=== PATIENT | female | born 1995 | race Caucasian/White ===

== ENCOUNTER 2023-10-29 09:43 | Emergency (ER) | payer OTHER, SELFPAY ==
[2023-10-29 09:47] VITALS: BP 103/65; PULSE 88; RESP 20; TEMP 36.8; O2SAT 96
--- NOTE | 2023-10-29 09:50 | ECG_ITS ---
Test Date: 2023-10-29 09:52:20 Measurements Intervals [place] Rate: 94 P: 56 FL: 137 QRS: 50 QRSD: 88 T: 10 QT: 362 QTc: 453 Interpretive Statements SINUS RHYTHM NORMAL ECG No previous ECG available for comparison Electronically Signed On 10-29-2023 15:51:26 CDT by Blaze Nicolas M.D.
[2023-10-29 10:00] VITALS: BP 103/65; BP 104/71; BP 106/71; PULSE 89; PULSE 94; PULSE 97
[2023-10-29] MEDS: SODIUM CHLORIDE 0.9% IV 1,000 ML 999 ML IV CONT (10:25)
[2023-10-29] MEDS: ONDANSETRON INJ 4 MG/2 ML VIAL IV PUSH (10:25)
--- NOTE | 2023-10-29 10:35 | ED.SYNCOPE ---
HPI - Syncope General Chief Complaint: Weakness Stated Complaint: near syncope Time Seen by Provider: 10/29/23 10:00 Source: patient Mode of arrival: EMS Limitations: no limitations History of Present Illness HPI narrative: This is a 28 year old female that presents to the ER for a near syncopal episode while at work. Reports she started to feel very lightheaded and hot, her co-workers were able to get her seated before passing out. Reports she is 20 weeks . Reports she has struggled with lightheadedness her entire life. It worsens when she is . Her OB is Dr. Summers. She has not eaten yet today. She has had regular pre-andie care and is scheduled for her 20 and appointment today. Denies chest pain, shortness of breath or palpitations. Related Data Allergies Allergy/AdvReac Type Severity Reaction Status Date / Time No Known Allergies Allergy Verified 10/29/23 09:54 Review of Systems Review of Systems: CONSTITUTIONAL: Denies fever CARDIOVASCULAR: Denies chest pain RESPIRATORY: Denies dyspnea. GASTROINTESTINAL: Reports nausea. Denies vomiting All systems reviewed & are unremarkable except as noted in HPI and below PMFSH Past Medical History Medical History (Updated 10/29/23 @ 11:21 by Shena Chan PA-C) Anxiety Social History Social History (Updated 10/29/23 @ 10:41 by Shena Chan PA-C) Substance use: never Exam Narrative: GENERAL: Well-appearing, well-nourished, and in no acute distress. HEAD: Normocephalic, atraumatic. EYES: EOMI. ENT: Nares clear, no rhinorrhea or epistaxis. Mucous membranes moist. Oropharynx without tonsillar hypertrophy exudate or other lesions. NECK: Supple. No adenopathy or masses. CHEST: Clear to auscultation. No respiratory distress. No wheezes rales or rhonchi HEART: Regular rate and rhythm. No murmur heard. Normal peripheral pulses. EXTREMITIES: Normal range of motion. No edema. SKIN: Warm, dry, no rash. NEURO: No focal deficits. Alert and oriented x3. PSYCH: Normal mood and affect Course Course Emergency Course: patient updated on workup and agrees with plan of care Consultations Consultation #1: Spoke with Dr. Summers about patient and workup who agrees with plan of care Date: 10/29/23 Vital Signs Vital signs: Vital Signs Temperature 98.3 F 10/29/23 09:47 Pulse Rate 88 10/29/23 09:47 Respiratory Rate 20 10/29/23 09:47 Blood Pressure 103/65 10/29/23 09:47 Pulse Oximetry 96 10/29/23 09:47 Oxygen Delivery Room Air 10/29/23 09:47 Temperature 98.3 F 10/29/23 09:47 Pulse Rate 95 10/29/23 11:30 Respiratory Rate 19 10/29/23 11:30 Blood Pressure 106/55 L 10/29/23 11:30 Pulse Oximetry 100 10/29/23 11:30 Oxygen Delivery Room Air 10/29/23 09:47 MDM - Syncope MDM Narrative Medical decision making narrative: Patient presents to the emergency department for near syncopal episode today, 20 weeks . She did not pass out or hit her head. She has no chest pain or shortness of breath. Her coworkers were able to get her to a seated position. Reports she has struggled with this for quite some time. She has worsening of her symptoms during . She is afebrile and nontoxic appearing. Her vitals are stable. CBC without leukocytosis. Does show a normocytic anemia with hemoglobin of 9.1. Patient does report known history of anemia and that she is not currently taking her iron supplementation. Metabolic panel without concerning findings. Urine without evidence of infection. Patient denies any bleeding or cramping. heart tones noted to be normal. She is scheduled for her anatomy scan today and follow-up with Dr. Summers. reports feeling better after eating and having a L fluids. She is to follow up with her OB for further care. She was given warnings to return to the ER Differential Diagnosis Differential diagnosis: Likely dehydration and other (anemia, electrolyte derangement, orthostat
[2023-10-29 10:45] VITALS: BP 100/63; PULSE 88; RESP 14; O2SAT 100
[2023-10-29 10:55] LABS: Basophils Absolute Auto 0.1 K/mm3 (0.0-0.1); Basophils Percent Auto 0.8 % (0.2-1.2); Eosinophils Absolute Auto 0.1 K/mm3 (0-0.3); Eosinophils Percent Auto 1.2 % (0-4.4); Hematocrit 28.3 % (37.0-47.0); Hemoglobin 9.1 g/dL (12.0-15.0); Immature Granulocyte Absolute 0.07 K/mm3 (0.00-0.031); Immature Granulocyte Percent A 0.9 % (0-0.5); Lymphocytes Absolute Auto 1.58 K/mm3 (0.9-3.2); Lymphocytes Percent Auto 20.7 % (18.3-44.2); Mean Corpuscular HGB Conc 32.2 g/dl (32-36); Mean Corpuscular Hemoglobin 27.5 pg (26-34); Mean Corpuscular Volume 85.5 fl (80-100); Mean Platelet Volume 9.1 fl (7.4-10.4); Monocytes Absolute Auto 0.6 K/mm3 (0.1-0.6); Monocytes Percent Auto 7.8 % (2.6-8.5); Neutrophils Absolute Auto 5.3 K/mm3 (1.3-6.7); Neutrophils Percent Auto 68.6 % (45.5-73.1); Platelet Count Result 367 k/mm3 (150-375); Red Blood Count 3.31 M/mm3 (4.2-5.4); Red Cell Distribution Width 15.2 % (11.5-14.5); White Blood Count 7.7 K/mm3 (4.5-10.0)
[2023-10-29 11:12] LABS: Alanine Aminotransferase 6 U/L (6-35); Albumin Level 3.3 g/dL (3.5-5.1); Alkaline Phosphatase 68 U/L (38-126); Anion Gap 6 mmol/L (4-12); Aspartate Amino Transferase 16 U/L (14-36); Bilirubin,Total 0.4 mg/dL (0.2-1.3); Blood Urea Nitrogen 8 mg/dL (7-17); Calcium 8.2 mg/dL (8.4-10.2); Carbon Dioxide 23 mmol/L (22-30); Chloride 107 mmol/L (98-107); Estimated CRCL calculation 132 ml/min; Estimated Glomerular Filt Rate > 60; Glucose 82 mg/dL (65-110); Potassium 3.4 mmol/L (3.4-5.0); Sodium 136 mmol/L (137-145)
[2023-10-29 11:19] LABS: Appearance Urine Cloudy (Clear); Bacteria Urine None Seen /hpf; Bilirubin Urine Negative (Negative); Blood Urine Negative (Negative); Color Urine Yellow (Yellow); Glucose Urine UA Negative (Negative); Ketones Urine Negative (Negative); Leukocyte Esterase Ur Negative LEU/UL (Negative); Nitrate Urine Negative (Negative); Non Pathogenic Casts 0-2; Protein Urine Negative (Negative); RBC Urine 0-2 /hpf (0-2); Specific Grav Ur 1.016 (1.001-1.035); Squamous Epithelial Cell Urine None Seen /hpf (Few); WBC Urine 0-5 /hpf (0-3)
[2023-10-29 11:20] LABS: Troponin I < 0.012 ng/mL (0.000-0.034)
[2023-10-29 11:26] LABS: Add Urine Microscopic? YES
[2023-10-29 11:30] VITALS: BP 106/55; PULSE 95; RESP 19; O2SAT 100
[2023-10-29 12:57] VITALS: BP 101/68; PULSE 94; RESP 18; O2SAT 99
== END 2023-10-29 12:59 | disposition home or self-care (01) ==
PROVIDERS: Student in an Organized Health Care Education/Training Program; Emergency Provider Physician Assistant
DX: R55 Syncope and collapse (principal); D64.9 Anemia, unspecified
CPT/HCPCS: 36415; 80053; 81001; 84484; 85025; 93005; 96361; 96374; 99284; J2405; J7030

== ENCOUNTER 2024-01-10 21:39 | Observation (INO) | payer OTHER, SELFPAY ==
[2024-01-10] VITALS (11 sets, daily range): BP systolic 108–113; BP diastolic 65–68; PULSE 104–116; O2SAT 95–98; BMI 22.8
--- NOTE | 2024-01-10 22:15 | PC.NURSE ---
2138- pt presents to L&D unit with c/o leaking fluid and general pain in the vaginal area. Pt states she feels adequate movement and denies vaginal bleeding. Abdomen palpates soft.
[2024-01-10 22:24] LABS: Bacteria Urine 4+ /hpf; Calcium Oxalate Crystals Urine Present /hpf; Mucus Urine Present /lpf; Need Manual Microscopic Reviewed; Non Pathogenic Casts 0-2; Squamous Epithelial Cell Urine Moderate /hpf (Few); WBC Urine 51-100 /hpf (0-3)
[2024-01-10 22:29] LABS: Color Urine Yellow (Yellow)
[2024-01-10 22:30] LABS: Appearance Urine Sl Cloudy (Clear); Bilirubin Urine 1+ (Negative); Blood Urine Negative (Negative); Glucose Urine UA Negative (Negative); Ketones Urine 1+ mg/dL (Negative); Nitrate Urine Negative (Negative); Protein Urine 1+ mg/dL (Negative); Specific Grav Ur >= 1.030 (1.001-1.035)
[2024-01-10 22:31] LABS: Add Urine Microscopic? YES; Leukocyte Esterase Ur 1+ LEU/UL (Negative)
--- NOTE | 2024-01-10 22:31 | OBADM ---
This patient, Radha Mckeon, admitted to the OB room OB Post 116 for observation. Patient/family oriented to hospital policies and general routines including ID bracelet, bed and alarms, visiting hours, pain management, procedures, bathroom and other care routines, personal items, smoking policy, room service/diet, and visiting hours. Patient/Family are encouraged to report perceived risks to care and to ask questions if they do not understand what they are told or what they should do.
--- NOTE | 2024-01-10 22:52 | PC.NURSE ---
2239- RN called MD and reports pts arrival to unit with complaints of LOF as vaginal pain. RN reported FHT and rare contractions as well as findings of UA and speculum exam. Orders received.
[2024-01-11 00:28] LABS: Chlamydia trachomatis NOT DETECTED (NOT DETECTE); Neisseria gonorrhoeae PCR NOT DETECTED (NOT DETECTE)
--- NOTE | 2024-02-08 10:12 | PM.OBTRLD ---
OB - Triage/Final Diagnosis Visit Information Comments/Additional reasons for admission: I have assessed the risk for this patient, Radha Mckeon, and determined that she would benefit from observation care. Evaluation Laboratory results: Laboratory Tests 01/10/24 22:05 Urine Color Yellow Urine Appearance Sl cloudy Urine pH 6.0 Ur Specific [place] >= 1.030 Urine Protein 1+ H Urine Glucose (UA) Negative Urine Ketones 1+ H Ur Blood (Man) Negative Urine Nitrate Negative Urine Bilirubin 1+ H Urine Urobilinogen 2.0 H Add Ur Microanalysis Reviewed Leukocyte Esterase Rfl 1+ H Urine RBC 3-5 H Urine WBC 51-100 H Ur Squamous Epith Cells Moderate Calcium Oxalate Crystal Present Urine Bacteria 4+ H Urine Casts 0-2 Urine Mucus Present C. trachomatis (PCR) Not detected N. gonorrhoeae (PCR) Not detected Final Diagnosis (1) Vaginal discharge during in third trimester: Code(s): O26.893 - Other specified related conditions, third trimester; N89.8 - Other specified noninflammatory disorders of vagina Status: Acute
== END 2024-01-10 22:51 | disposition home or self-care (01) ==
PROVIDERS: Admitting Provider Obstetrics & Gynecology; PCP Obstetrics & Gynecology; Visit Provider Obstetrics & Gynecology
DX: O26.893 Other specified pregnancy related conditions, third trimester (principal); N89.8 Other specified noninflammatory disorders of vagina; Z3A.31 31 weeks gestation of pregnancy
CPT/HCPCS: 81001; 87086; 87491; 87591; G0378; G0379

== ENCOUNTER 2024-02-11 23:16 | Observation (INO) | payer OTHER, SELFPAY ==
[2024-02-11 23:27] VITALS: TEMP 37.2
[2024-02-12 01:19] VITALS: PULSE 99; O2SAT 97
[2024-02-12 01:22] VITALS: BMI 23.7
--- NOTE | 2024-02-12 01:22 | OBADM ---
This patient, Radha Mckeon, admitted to the OB room Labor/Delivery/Recovery 105 for observation. Patient/family oriented to hospital policies and general routines including ID bracelet, bed and alarms, visiting hours, pain management, procedures, bathroom and other care routines, personal items, smoking policy, room service/diet, and visiting hours. Patient/Family are encouraged to report perceived risks to care and to ask questions if they do not understand what they are told or what they should do.
--- NOTE | 2024-02-24 17:04 | PM.OBTRLD ---
OB - Triage/Final Diagnosis Visit Information Comments/Additional reasons for admission: I have assessed the risk for this patient, Radha Mckeon, and determined that she would benefit from observation care. Final Diagnosis (1) Vaginal discharge during in third trimester: Code(s): O26.893 - Other specified related conditions, third trimester; N89.8 - Other specified noninflammatory disorders of vagina Status: Acute
== END 2024-02-12 01:36 | disposition home or self-care (01) ==
PROVIDERS: Admitting Provider Obstetrics & Gynecology; Visit Provider Obstetrics & Gynecology
DX: O26.893 Other specified pregnancy related conditions, third trimester (principal); N89.8 Other specified noninflammatory disorders of vagina; Z3A.35 35 weeks gestation of pregnancy
CPT/HCPCS: G0378; G0379

== ENCOUNTER 2024-02-25 18:59 | Inpatient (IN) | payer OTHER, SELFPAY ==
[2024-02-25] VITALS (18 sets, daily range): BP systolic 105–120; BP diastolic 62–81; PULSE 97–120; TEMP 36.4; BMI 24.2
--- NOTE | ~2024-02-25 | XR_ITS ---
Supine portable view of the abdomen Clinical history: No surgical count done, emergency section Findings: Bowel gas pattern is nonspecific. Moderate to large amount of stool present. No evidence fo r obstruction or free air. No abnormal mass lesion or calcification is seen. Osseous structures are i ntact. Impression: No abnormal radiopaque foreign body. Constipation. Reviewed, dictated and finalized at location . Impression: No abnormal radiopaque foreign body. Constipation.
[2024-02-25 20:09] LABS: Basophils Absolute Auto 0.1 K/mm3 (0.0-0.1); Basophils Percent Auto 0.5 % (0.2-1.2); Eosinophils Absolute Auto 0.1 K/mm3 (0-0.3); Hematocrit 35.1 % (37.0-47.0); Hemoglobin 11.5 g/dL (12.0-15.0); Immature Granulocyte Absolute 0.12 K/mm3 (0.00-0.031); Immature Granulocyte Percent A 1.1 % (0-0.5); Lymphocytes Absolute Auto 1.54 K/mm3 (0.9-3.2); Lymphocytes Percent Auto 14.4 % (18.3-44.2); Mean Corpuscular HGB Conc 32.8 g/dl (32-36); Mean Corpuscular Hemoglobin 27.1 pg (26-34); Mean Corpuscular Volume 82.6 fl (80-100); Mean Platelet Volume 9.4 fl (7.4-10.4); Monocytes Absolute Auto 1.1 K/mm3 (0.1-0.6); Neutrophils Absolute Auto 7.8 K/mm3 (1.3-6.7); Platelet Count Result 366 k/mm3 (150-375); Red Blood Count 4.25 M/mm3 (4.2-5.4); Red Cell Distribution Width 22.1 % (11.5-14.5); White Blood Count 10.7 K/mm3 (4.5-10.0)
--- NOTE | 2024-02-25 20:11 | LDADM ---
This patient, Radha Mckeon, was admitted to Labor/Delivery/Recovery 107 on 02/25/24 at 19:50. Plans for labor, pain management and were discussed with patient. Patient/family oriented to hospital policies and general routines including ID bracelet, bed and alarms, visiting hours, pain management, procedures, bathroom and other care routines, personal items, smoking policy, room service/diet and guest tray routines, infant security routines, and visiting hours. Patient/Family are encouraged to report perceived risks to care and to ask questions if they do not understand what they are told or what they should do. See OBIX for further documentation.
[2024-02-25 20:30] LABS: Platelet Estimate Adequate (Adequate)
[2024-02-25 20:31] LABS: Acanthocytes 1+; Burr Cells 1+; Ovalocytes 1+; Schistocytes None Seen
[2024-02-25] MEDS: LACTATED RINGERS 1,000 ML 125 ML IV CONT (20:42)
[2024-02-25] MEDS: AMPICILLIN 2 GM/NS 100 ML 2 GM/100 ML BAG IVPB (20:43)
[2024-02-25 20:48] LABS: Glucose Point of Care 86 mg/dl (65-105)
[2024-02-25 20:59] LABS: HIV 1/2 Ab P24 Ag Result Negative (Negative)
[2024-02-25 22:02] LABS: Rapid Plasma Reagin Non-Reactive (NonReactive)
[2024-02-26] VITALS (86 sets, daily range): BP systolic 86–124; BP diastolic 48–76; PULSE 72–102; RESP 12–19; TEMP 36.4–37.2; O2SAT 94–100
[2024-02-26] MEDS: AMPICILLIN 1 GM/NS 50 ML 1 GM/50 ML BAG IVPB ×2 (00:30→04:00)
[2024-02-26 00:36] LABS: Glucose Point of Care 94 mg/dl (65-105)
--- NOTE | 2024-02-26 00:44 | WPDANESEPP ---
Anes - Eval Pre Procedure Procedure: Labor epidural Date/Time: 02/26/24 00:44 Surgeon: Melina Preop Diagnosis: Abdominal pain with contractions Pre Op Diagnosis: Bleeding Patient Data Age: 28 Gender: F Height: 1.55 m Weight: 58.18 kg Last Vital Signs Temp 97.5 F L 02/25/24 21:50 Pulse 95 02/26/24 00:16 BP 105/68 02/26/24 00:16 O2 Del Method Room Air 02/25/24 20:07 Allergies Allergy/AdvReac Type Severity Reaction Status Date / Time No Known Allergies Allergy Verified 01/12/24 12:25 Home Medications Medication Instructions Recorded Confirmed Type ferrous sulfate 325 mg (65 mg 325 mg PO DAILY 30 days #30 tabs 10/29/23 02/25/24 Rx iron) tablet (FeroSul) Laboratory Tests 02/25/24 02/25/24 02/26/24 20:02 20:39 00:26 WBC 10.7 H K/mm3 (4.5-10.0) RBC 4.25 M/mm3 (4.2-5.4) Hgb 11.5 L g/dL (12.0-15.0) Hct 35.1 L % (37.0-47.0) MCV 82.6 fl (80-100) MCH 27.1 pg (26-34) MCHC 32.8 g/dl (32-36) RDW 22.1 H % (11.5-14.5) Plt Count 366 k/mm3 (150-375) MPV 9.4 fl (7.4-10.4) Immature Gran % (Auto) 1.1 H % (0-0.5) Neut % (Auto) 73.0 % (45.5-73.1) Lymph % (Auto) 14.4 L % (18.3-44.2) [place] % (Auto) 10.0 H % (2.6-8.5) Eos % (Auto) 1.0 % (0-4.4) Baso % (Auto) 0.5 % (0.2-1.2) Lymph # (Auto) 1.54 K/mm3 (0.9-3.2) [place] # (Auto) 1.1 H K/mm3 (0.1-0.6) Eos # (Auto) 0.1 K/mm3 (0-0.3) Baso # (Auto) 0.1 K/mm3 (0.0-0.1) Abs Immat Gran (auto) 0.12 H K/mm3 (0.00-0.031) Absolute Neuts (auto) 7.8 H K/mm3 (1.3-6.7) Absolute Nucleated RBC 0.000 K/mm3 (0.0-0.012) Nucleated RBC % 0.0 % (0.0-0.2) Platelet Estimate Adequate (Adequate) Ovalocytes 1+ Georgie Cells 1+ Acanthocytes (Spur) 1+ Schistocytes None seen POC Capillary Glucose 86 mg/dl 94 mg/dl (65-105) (65-105) RPR Non-reactive (NonReactive) HIV 1&2 Ab/P24 Ag 4thGn Negative (Negative) Blood Type O Positive Antibody Screen Negative : gestational age HCG: positive Patient hx anesthesia problems: none Family hx anesthesia problems: none Results Review: All pre-operative results and documents have been reviewed as part of the pre-operative evaluation. [facility] Past Medical History Medical History Anemia affecting Anxiety Gestational diabetes and not yet delivered Social History Social History Smoking status: Never smoker Second hand tobacco smoke exposure: Yes Substance use: never Do You Feel Safe in your Home?: Yes Lack of Transportation: No Lack of Food: Never True Current Housing: I Have Housing Concerned About Future Housing: No Difficulty Paying Gas/Electric Bills: YES Difficulty Paying for Meds: No Currently Unemployed: No Education: High School Diploma/GED Difficulty w/ Childcare or Family Care: No Spiritual care concerns: No Exam Day of Procedure 02/26/24 00:44 Patient weight: normal Airway: Mallampati scale class II
[2024-02-26 04:05] LABS: Glucose Point of Care 88 mg/dl (65-105)
[2024-02-26] MEDS: LACTATED RINGERS 1,000 ML 125 ML IV CONT (05:18)
[2024-02-26] MEDS: AZITHROMYCIN 500 MG/NS 250 ML 500 MG/250 ML BAG 250 MG IVPB (05:57)
--- NOTE | 2024-02-26 06:05 | PC.NURSE ---
Report given to Stephanie Thomas RN.
[2024-02-26] MEDS: FAMOTIDINE 20 MG/2 ML VIAL IV PUSH (06:07)
[2024-02-26] MEDS: ONDANSETRON INJ 4 MG/2 ML VIAL IV PUSH (06:07)
--- NOTE | 2024-02-26 06:38 | PM.IMHP ---
H&P: HPI History of Present Illness Date/Time: 02/26/24 06:39 Chief Complaint: Cord prolapse Narrative: The PEG water was ruptured. The bag of water wasushing through the cervix. Artificial rupture membranes was performed. Cord prolapse occurred. She was taken immediately for delivery. The patient understands the details of the procedure. The procedure has been explained in detail. She understands the risks. She understands that injuries may occur that result in hospitalization, more surgery, and severe illness. She understands risk of hemorrhage and infection. She denies any chest pain or shortness of breath. She denies any nausea, vomiting, fever, chills. Review of Systems Review of Systems: All systems reviewed & are unremarkable except as noted in HPI and below Constitutional: Constitutional: Denies chills, Denies fatigue, Denies fever(s) and Denies weakness Eyes: Eyes: Denies blurry vision, Denies change in vision, Denies loss of peripheral vision, Denies loss of vision, Denies other visual disturbances and Denies eye pain ENT: Denies vertigo, Denies dizziness, Denies hearing loss, Denies mouth pain, Denies nasal obstruction, Denies neck mass and Denies neck pain Cardiovascular: Cardiovascular: Denies chest pain, Denies diaphoresis, Denies syncope, Denies leg edema and Denies dyspnea Respiratory: Respiratory: Denies chest congestion, Denies cough, Denies hemoptysis, Denies dyspnea and Denies wheezing Gastrointestinal: Gastrointestinal: Denies abdominal pain, Denies constipation, Denies diarrhea, Denies nausea and Denies vomiting Genitourinary: Genitourinary: Denies hematuria, Denies change in libido, Denies nocturia, Denies genital lesions, Denies flank pain and Denies urinary urgency Musculoskeletal: Musculoskeletal: Denies abnormal gait, Denies back pain, Denies myalgias, Denies arthralgias, Denies joint swelling, Denies muscle weakness and Denies neck pain Integumentary/Breasts: Skin/Breast: Denies swelling, Denies breast pain, Denies breast mass, Denies dry skin, Denies nipple discharge, Denies unusual bruising and Denies jaundice Neurologic: Denies Neuro-related abnormal movements, Denies Abnormal speech present, Denies abnormal gait, Denies behavioral changes, Denies confusion, Denies vertigo, Denies dizziness, Denies syncope, Denies loss of vision, Denies memory loss, Denies convulsions and Denies weakness Psychiatric: Psychiatric: Denies abnormal sleep pattern, Denies behavioral changes, Denies change in libido, Denies confusion, Denies depression, Denies anhedonia and Denies memory loss Endocrine: Endocrine: Reports no additional endocrine complaints, Denies change in libido and Denies fatigue Hematologic/Lymphatic: Hematologic/Lymphatic: Reports no additional hematologic/lymphatic complaints Allergic/Immunologic: Allergic/Immunologic: Reports no additional allergic/immunologic complaints and Denies wheezing PMFSH Past Medical History Medical History Anemia affecting Anxiety Gestational diabetes and not yet delivered Social History Social History Smoking status: Never smoker Second hand tobacco smoke exposure: Yes Substance use: never Do You Feel Safe in your Home?: Yes Lack of Transportation: No Lack of Food: Never True Current Housing: I Have Housing Concerned About Future Housing: No Difficulty Paying Gas/Electric Bills: YES Difficulty Paying for Meds: No Currently Unemployed: No Education: High School Diploma/GED Difficulty w/ Childcare or Family Care: No Spiritual care concerns: No Meds Home Medications and Allergies Home Medications Medication Instructions Recorded Confirmed Type ferrous sulfate 325 mg (65 mg 325 mg PO DAILY 30 days #30 tabs 10/29/23 02/25/24 Rx iron) tablet (FeroSul) Allergies Allergy/Ad
--- NOTE | 2024-02-26 06:45 | WPDHPUPDATE1 ---
History and Physical Update Update Date/Time: 02/26/24 06:45 History and Physical has been reviewed, including an updated exam of the patient. There are NO changes in the patient's condition. Risks, benefits, and alternatives have been discussed and questions answered. Patient agrees to proceed with procedure.
--- NOTE | 2024-02-26 06:47 | W.PM.OBCSD ---
OB - Delivery Note Procedure Delivery date: 02/26/24 Pre-op diagnosis: Umbilical Cord Prolapse Post-op Diagnosis: Same Procedure Performed: Primary Surgeon: Ernesto Summers MD Anesthesia type: General Description of Procedure/Findings: The patient was taken the operating room.? She was prepped and draped in dorsal supine position with a leftward tilt.? This was done after spinal anesthetic was applied.? A low-transverse skin incision was made and carried down till of the fascia with the knife.? The fascial incision was made with the knife.? The fascial incision was extended laterally with Huff scissors.? The fascia was tented upward superiorly and inferiorly the rectus muscles were dissected off bluntly.? The rectus muscles were the midline.? The preperitoneal fat and peritoneum were dissected open bluntly at the superior aspect of the rectus muscles.? The peritoneal incision was extended superior and inferior with good position of bladder.? The uterine incision was made with a scalpel down to the level of the amniotic cavity.? The amniotic cavity was entered bluntly.? The infant was delivered.? The cord was clamped and cut and the infant was handed off to waiting pediatric staff.? Cord bloods were obtained.? The placenta was removed manually.? The uterus was exteriorized.? The uterus was cleared of all clots, debris and membranes.? The uterus was closed in 0 Vicryl running lock fashion.? An imbricating over a was placed along the incision line as well.? The uterus was returned to the abdomen.? The gutters were cleared of all clots and debris.? The fascia was closed with 0 Vicryl running fashion.? The subcutaneous tissue was irrigated pinpoint bleeders were cauterized.? The skin was closed with subcuticular absorbable messi.? The skin incision line was covered with glue.? The patient tolerated the procedure well.? She has taken recovery room in stable condition.? Sponge lap and needle counts were correct x2.? Urine Output: 450
[2024-02-26] MEDS: OXYTOCIN 30 UNITS/NS 500 ML 30 UNITS/500 ML BAG 125 UNITS IV CONT (07:00)
[2024-02-26] MEDS: MORPHINE SULFATE INJ (*CRX) 10 MG/ML AMP 2 MG IV PUSH ×3 (07:05→07:16)
[2024-02-26] MEDS: fentaNYL CITRATE INJ (*CRX) 100 MCG/2 ML VIAL 25 MCG IV PUSH ×2 (07:22→07:30)
[2024-02-26] MEDS: MORPHINE SULFATE PCA (*CRX) 30 MG/30 ML SYR IV CONT ×2 (07:49→19:00)
[2024-02-26] MEDS: ACETAMINOPHEN 500 MG TABLET 1000 MG (08:20)
[2024-02-26] MEDS: KETOROLAC 30 MG/ML VIAL (*BKC) (08:20)
[2024-02-26] MEDS: LIDOCAINE 5% PATCH 1 PATCH TRANSDERM (08:20)
--- NOTE | 2024-02-26 09:25 | PC.NURSE ---
Patient transferred to post room #285 via stretcher. No Support person present. Oriented to unit, room, information board, rooming in, admission packet and security measures. Patient verbalizes understanding.
[2024-02-26] MEDS: DEXTROSE 5%/0.45% SOD CHL 1,000 ML 125 ML IV CONT (11:31)
--- NOTE | 2024-02-26 11:31 | PC.NURSE ---
Introductions were made, then consulted with patient to assess needs related to . Mother led the conversation with her?plans to feed?her and the?experience so far. Mother states that she has breastfed her other 4 children successfully. She mentioned that she also breastfed her best friends child in addition to her own. Mother is confident with working with her Encouraged understanding of the benefits of skin to skin (demonstrating unwrapping infant and placing upright on her chest), stimulating with massage touch, changing positions to encourage wakefulness, how to watch for early feeding cues, responsive feeding, feeding on demand (aiming for 8-12 times in 24 hours, about every 2-3 hours), milk production, building/maintaining a milk supply, duration of feeding, signs of adequate intake/output and how to record on the feeding sheet. Mother is in pain r/t her section but does works well with her infant with encouragement and education. Reviewed positioning and ear, shoulder, hip alignment, supporting the breast to facilitate a deep latch, asymmetrical latch (off-center), leading with the chin with a big, open, wide gape and body close to mother. Infant latched optimally to the right breast in football position. Education given to the mother of how to visualize the suckling (with good rocking jaw motion), swallows (dropping of the lower jaw) and how to listen for drinking at the breast (the ka sound). Infant was able to maintain latch without pain to mother protecting the nipple with optimal positioning and latching. Reviewed comfort measures of healing with a warm, wet washcloth to rinse breast, then leave open to air-dry, good handwashing when or touching the breast/nipples to prevent infection. Mother voiced understanding of skin to skin, stimulating with massage touch, responsive feedings, hand expressed colostrum, talking to to encourage if it has been 2 -2.5 hours since the start of the last , to call if does not latch, or if there is discomfort with . Parents voiced understanding of information, demonstrated learning and will call if there is a request for assistance. Reported to the Primary RN.
--- NOTE | 2024-02-26 14:16 | PC.NURSE ---
9081. Mother called for help lifting and moving infant to the breast to attempt to breastfeed. She reports she is having difficultly lifting baby after her . Mom works well with independently, she had skin to skin on her chest and was working to get her latch on to the breast. We reviewed early feeding cues and hand expressing colostrum to get some drops into babies mouth if baby does not seem interested in feeding. Mom reports she is comfortable with hand expression. Mom expressed a few drops of colostrum into babies mouth and attempted multiple times to latch infant. with no feeding cues, and continued to sleep thru attempt. Mom encouraged to continue with s2s and watch for infants early feeding cues and repeat attempt in 15-30 min. Mom verbalized understanding. after c curtain cutter hand out given. Reported to primary RN.
[2024-02-26] MEDS: SIMETHICONE 80 MG TAB.CHEW PO ×2 (14:38→17:10)
[2024-02-26] MEDS: LANOLIN (LANSINOH) 7.5 GM CREAM 1 APPLIC TOPICAL (14:39)
[2024-02-26] MEDS: KETOROLAC 15 MG/ML VIAL (*BKC) IV PUSH ×2 (14:39→21:12)
[2024-02-26] MEDS: ACETAMINOPHEN 325 MG TABLET 650 MG PO ×2 (14:39→21:12)
--- NOTE | 2024-02-26 16:34 | PC.NURSE ---
1540 Received call from Kourtney Barry (#[phone]) vocational case manager with [employer], the patient had called her to let her know that she had delivered. Per Kourtney, the patient has an open DCFS case and she does not have custody of her other four children. Kourtney is going to call the DCFS hotline to alert them of the delivery, DCFS may be here today, if not then tomorrow. Per Kourtney, the father of the baby is a registered sex offender and mom had tested positive for methamphetamines one time for her but unaware of the date. The baby is not to be discharged home with the patient (mother) and Kourtney would like a drug screen of the umbilical cord sent. RN to notify Care Coordination, patient's OB and the agent broker. 2175 Called and spoke with Michelle in Care Coordination, a consult was put in under baby for family being estranged because the mother did not have a support person with her. RN advised Michelle of the above information regarding DCFS, per Michelle Care Coordination will see the patient tomorrow. [address] Clark and also made aware of the DCFS information above, she would like a urine drug screen on baby and the cord sent as well. [address] Summers to let him know the above information as well regarding DCFS and ok to order urine drug screen on the patient. Copy placed in baby chart
[2024-02-26] MEDS: DOCUSATE SODIUM 100 MG CAPSULE PO (17:10)
--- NOTE | 2024-02-26 17:45 | PC.NURSE ---
Addendum entered by Mony Salazar RN 02/26/24 19:17: 1735 Prior to calling [employer], RN spoke with patient to advise her of Kourtney Barry with [employer] calling, patient stated she was aware that she was going to call. RN advised her that the birthing nurse ordered a urine drug screen for baby and that a urine drug screen was also ordered for her through Dr. Summers. Patient ok with those orders and wanted to let RN know that the father of the baby should not be visiting. Original Note: 1744 RN spoke with Darin [employer] Services Associate, advised him of DCF[employer] involvement and father's history, RN was advised to get father's name and description and to let security know. Per patient, the father of the baby, Kun Lora, should not be allowed to visit. Per Kourtney Barry with [employer], he is a sex offender. Patient gave a description of him as a white male, 5 foot 10 inches, heavier build, shoulder length black hair with a kemp. Description given to security and advised to call unit before sending up any visitors.
[2024-02-26 18:27] LABS: Amphetamine Screen Urine Negative (Negative); Barbiturate Screen Urine Negative (Negative); Benzodiazepines Screen Urine Negative (Negative); Cannabinoid Screen Urine Negative (Negative); Cocaine Screen Urine Negative (Negative); Methadone Screen Urine Negative (Negative); Opiate Screen Urine Positive (Negative); Phencyclidine Screen Urine Negative (Negative)
[2024-02-26] MEDS: KCL 20 MEQ/D5/0.45% SOD CHL 1,000 ML 125 ML IV CONT (19:32)
[2024-02-27 01:15] VITALS: BP 101/68; PULSE 98; RESP 16; TEMP 36.9; O2SAT 99
[2024-02-27 03:10] VITALS: RESP 16; O2SAT 98
[2024-02-27] MEDS: HYDROcodone/acetaminophen (*CRX) 5-325 MG TABLET 1 TAB PO (03:13)
[2024-02-27] MEDS: KETOROLAC 15 MG/ML VIAL (*BKC) IV PUSH (03:14)
[2024-02-27 05:00] VITALS: BP 90/67; PULSE 84; RESP 16; TEMP 36.9; O2SAT 98
[2024-02-27 05:32] LABS: Basophils Absolute Auto 0.1 K/mm3 (0.0-0.1); Basophils Percent Auto 0.6 % (0.2-1.2); Eosinophils Absolute Auto 0.2 K/mm3 (0-0.3); Eosinophils Percent Auto 1.8 % (0-4.4); Hematocrit 26.8 % (37.0-47.0); Hemoglobin 8.5 g/dL (12.0-15.0); Immature Granulocyte Absolute 0.11 K/mm3 (0.00-0.031); Immature Granulocyte Percent A 1.2 % (0-0.5); Lymphocytes Absolute Auto 1.29 K/mm3 (0.9-3.2); Lymphocytes Percent Auto 14.5 % (18.3-44.2); Mean Corpuscular HGB Conc 31.7 g/dl (32-36); Mean Corpuscular Hemoglobin 26.8 pg (26-34); Mean Corpuscular Volume 84.5 fl (80-100); Mean Platelet Volume 9.4 fl (7.4-10.4); Monocytes Absolute Auto 0.9 K/mm3 (0.1-0.6); Monocytes Percent Auto 10.3 % (2.6-8.5); Neutrophils Absolute Auto 6.4 K/mm3 (1.3-6.7); Neutrophils Percent Auto 71.6 % (45.5-73.1); Platelet Count Result 263 k/mm3 (150-375); Red Blood Count 3.17 M/mm3 (4.2-5.4); Red Cell Distribution Width 22.3 % (11.5-14.5); White Blood Count 8.9 K/mm3 (4.5-10.0)
[2024-02-27 05:55] LABS: Anisocytosis 1+; Hypochromasia 1+; Microcytosis 1+ (NORMAL); Platelet Estimate Adequate (Adequate); Schistocytes None Seen
[2024-02-27] MEDS: SIMETHICONE 80 MG TAB.CHEW PO ×3 (08:09→16:38)
[2024-02-27] MEDS: DOCUSATE SODIUM 100 MG CAPSULE PO ×2 (08:09→16:37)
[2024-02-27] MEDS: POLYSACCHARIDE IRON COMPLEX 150 MG CAPSULE PO ×2 (08:09→16:37)
[2024-02-27] MEDS: MULTIVIT/MIN/PREN/FOL AC/IRON TABLET 1 TAB PO (08:09)
[2024-02-27] MEDS: HYDROcodone/acetaminophen (*CRX) 10-325 MG TABLET 1 TAB PO ×4 (08:09→22:35)
--- NOTE | 2024-02-27 08:37 | PM.OBPNVD ---
OB - PN: Subj Subjective Date/time seen: 02/27/24 08:37 Patient comments: no complaints, pain well controlled, tolerating diet and flatus present OB - PN: Obj Data Labs 02/27/24 05:04 Labs: Laboratory Results - last 24 hr 02/26/24 02/27/24 17:25 05:04 WBC 8.9 RBC 3.17 L Hgb 8.5 L D Hct 26.8 L MCV 84.5 MCH 26.8 MCHC 31.7 L RDW 22.3 H Plt Count 263 MPV 9.4 Immature Gran % (Auto) 1.2 H Neut % (Auto) 71.6 Lymph % (Auto) 14.5 L Archuleta % (Auto) 10.3 H Eos % (Auto) 1.8 Baso % (Auto) 0.6 Lymph # (Auto) 1.29 Archuleta # (Auto) 0.9 H Eos # (Auto) 0.2 Baso # (Auto) 0.1 Abs Immat Gran (auto) 0.11 H Absolute Neuts (auto) 6.4 Absolute Nucleated RBC 0.000 Nucleated RBC % 0.0 Platelet Estimate Adequate Hypochromasia 1+ Anisocytosis 1+ Microcytosis 1+ Schistocytes None seen Urine Opiates Screen Positive A Urine Methadone Screen Negative Ur Barbiturates Screen Negative Ur Phencyclidine Scrn Negative Ur Amphetamine Screen Negative U Benzodiazepines Scrn Negative Urine Cocaine Screen Negative U Cannabinoids Screen Negative OB - PN A/P Plan day: 1 Comments: Post Op LTCS - no problems, routine recovery Time Spent With Patient Time: Total time spent is greater than 50% in coordination of care (as documented) at patient's floor/unit and/or counseling patient: Exam Const: General: cooperative, healthy appearing, comfortable and no acute distress Resp: Auscultation: no crackles, no rales, no rhonchi and no wheezes Cardio: Rhythm: regular rhythm Heart sounds: no click and no murmurs GI: Inspection: non-distended Auscultation: normal bowel sounds Extrem: General: normal to inspection, no pedal edema and no calf tenderness
--- NOTE | 2024-02-27 10:31 | PCCCNOTE ---
Care Coordination. Patient referred to CC for not having custody of other children and open DCFS case. Spoke with pt.'s DCFS major case detective, Kourtney Barry, who already has contacted the DCFS hotline. She reports Lien Negrete, DCFS credit charge authorizer, has already been out to see pt. with plan to take baby into care Thursday. Per Kourtney, pt.'s issues were not drug related. Pt.'s UDS positive for opiates, but taken after delivery. Baby UDS negative. Per Kourtney, mother is kind to children, but has issues keeping safe environment for them due to issues with home environment and relationships she has been in. This is mother's 5th child: two live with dads and two live with family bedsides new baby. Will follow up with DCFS Thursday with baby and mother should be medically stable. Will follow.
[2024-02-27 11:10] VITALS: BP 102/66; PULSE 102; RESP 18; TEMP 36.6; O2SAT 99
[2024-02-27] MEDS: IBUPROFEN 600 MG TABLET PO ×2 (16:36→22:35)
[2024-02-27 20:20] VITALS: BP 108/63; PULSE 99; RESP 16; TEMP 37.1; O2SAT 98
[2024-02-27] MEDS: LIDOCAINE 5% PATCH 1 PATCH TRANSDERM (21:25)
[2024-02-27] MEDS: ACETAMINOPHEN 325 MG TABLET 650 MG PO (22:35)
[2024-02-28] MEDS: HYDROcodone/acetaminophen (*CRX) 10-325 MG TABLET 1 TAB PO ×6 (04:37→23:00)
[2024-02-28] MEDS: IBUPROFEN 600 MG TABLET PO ×4 (04:37→23:00)
[2024-02-28 07:45] VITALS: BP 103/74; PULSE 93; RESP 16; TEMP 36.6
[2024-02-28] MEDS: MULTIVIT/MIN/PREN/FOL AC/IRON TABLET 1 TAB PO (07:46)
[2024-02-28] MEDS: POLYSACCHARIDE IRON COMPLEX 150 MG CAPSULE PO ×2 (07:46→16:52)
[2024-02-28] MEDS: DOCUSATE SODIUM 100 MG CAPSULE PO ×2 (07:46→16:52)
[2024-02-28] MEDS: ACETAMINOPHEN 325 MG TABLET 650 MG PO ×3 (07:46→20:00)
[2024-02-28] MEDS: SIMETHICONE 80 MG TAB.CHEW PO ×3 (07:46→16:52)
--- NOTE | 2024-02-28 08:34 | PM.OBPNVD ---
OB - PN: Subj Subjective Date/time seen: 02/28/24 08:34 Patient comments: no complaints, pain well controlled, incisional pain, tolerating diet and flatus present OB - PN: Obj Data Labs 02/27/24 05:04 OB - PN A/P Plan day: 2 Plan: routine care Comments: POD#2 LTCS - no problems, Time Spent With Patient Time: Total time spent is greater than 50% in coordination of care (as documented) at patient's floor/unit and/or counseling patient: Exam Const: General: comfortable, no acute distress and alert Resp: Effort & Inspection: normal respiratory effort Auscultation: no crackles, no rales and no rhonchi Cardio: Rate: regular rate Heart sounds: no click, no murmurs and no rubs GI: Inspection: non-distended Auscultation: normal bowel sounds Other: Incision - CDI Extrem: General: normal to inspection, no pedal edema and no calf tenderness
[2024-02-28 19:20] VITALS: BP 113/75; PULSE 87; RESP 18; TEMP 36.8; O2SAT 100
[2024-02-28] MEDS: LANOLIN (LANSINOH) 7.5 GM CREAM 1 APPLIC TOPICAL (19:20)
[2024-02-28] MEDS: LIDOCAINE 5% PATCH 1 PATCH TRANSDERM (21:00)
[2024-02-29] MEDS: ACETAMINOPHEN 325 MG TABLET 650 MG PO ×4 (02:00→23:56)
[2024-02-29] MEDS: HYDROcodone/acetaminophen (*CRX) 10-325 MG TABLET 1 TAB PO ×5 (02:30→21:43)
[2024-02-29] MEDS: HYDROcodone/acetaminophen (*CRX) 5-325 MG TABLET 1 TAB PO (05:10)
[2024-02-29] MEDS: IBUPROFEN 600 MG TABLET PO ×4 (05:10→23:56)
[2024-02-29 08:05] VITALS: BP 101/69; PULSE 90; RESP 16; TEMP 37.2; O2SAT 99
[2024-02-29] MEDS: SIMETHICONE 80 MG TAB.CHEW PO ×3 (08:17→17:11)
[2024-02-29] MEDS: MULTIVIT/MIN/PREN/FOL AC/IRON TABLET 1 TAB PO (08:17)
[2024-02-29] MEDS: DOCUSATE SODIUM 100 MG CAPSULE PO ×2 (08:17→17:11)
[2024-02-29] MEDS: POLYSACCHARIDE IRON COMPLEX 150 MG CAPSULE PO ×2 (08:17→17:11)
--- NOTE | 2024-02-29 08:28 | PM.OBPNVD ---
OB - PN: Subj Subjective Date/time seen: 02/29/24 08:28 Patient comments: no complaints, pain well controlled, incisional pain, tolerating diet and flatus present OB - PN: Obj Data Labs 02/27/24 05:04 OB - PN A/P Plan day: 3 Plan: routine care, discharge home and other Comments: Incision check in one week. Given precautions Time Spent With Patient Time: Total time spent is greater than 50% in coordination of care (as documented) at patient's floor/unit and/or counseling patient: Exam Const: General: comfortable, no acute distress and alert Resp: Effort & Inspection: normal respiratory effort Auscultation: no crackles, no rales and no rhonchi Cardio: Rate: regular rate Heart sounds: no click, no murmurs and no rubs GI: Inspection: non-distended GI Palp: No Tenderness to palpation present (GI) Auscultation: normal bowel sounds Other: Incision - CDI Extrem: General: normal to inspection, no pedal edema and no calf tenderness
--- NOTE | 2024-02-29 08:33 | PM.OBDSVD ---
DS: Admitting Diagnosis Discharge Date February 29, 2024 Admitting Diagnosis term DS: Discharge Diagnosis Discharge Diagnosis (1) delivery delivered: Code(s): O82 - Encounter for delivery without indication Status: Acute OB - DS: Summary OB Procedures : None OB Procedures Intrapartum: OB Procedures: : None Peripartum Data Procedures: Procedures Operation Date: 02/26/24 05:40 Actual Procedure Side Surgeon p Section Not Applicable Ernesto Summers MD Time Spent with Patient Time attestation: Total time spent providing and/or coordinating discharge services: DS: Data Data Completed and Pending Pending studies at discharge: Pending at discharge 02/26/24 06:36 Surgical [PTH] Routine Discharge Plan Discharge Discharging Clinician: Ernesto Summers Patient Disposition: Home, Self-Care Activity: pelvic rest Diet: regular Patient Instructions: Antibiotic Form Stand Alone Forms: General Discharge Information Follow-up/Referrals: Ernesto Summers MD [Physician] - Discharge Medications: New oxycodone-acetaminophen 5-325 mg tablet 1 tablet PO Q4H PRN (Reason: pain) Qty: 25 0RF Continued ferrous sulfate [FeroSul] 325 mg (65 mg iron) tablet 325 mg PO DAILY 30 Days Qty: 30 0RF Date of admission: 02/25/24 19:50 Primary Care Provider: UNKNOWN,DOCTOR Admitting Provider: Ernesto Summers Attending physician on admission: Ernesto Summers Condition: Stable
[2024-02-29] MEDS: TETANUS,DIPHTHERIA,AC PERTUSSIS ADULT (0.5 ML) BOOSTRIX IM (09:21)
--- NOTE | 2024-02-29 10:35 | PC.NURSE ---
Introductions were made, then consulted with patient to assess needs related to . Discussed with mother her?plans to feed?her and the?experience so far. Resources provided for inpatient and outpatient services with the feeding sheet, mom/baby guide, and pumping handouts. She is already using her Motif pump, states that this is her 5th baby and she doesn't need any further assistance. Mother voiced understanding of information and will call if there is a request for assistance. Reported to the Primary RN.
--- NOTE | 2024-02-29 13:02 | PCCCNOTE ---
Per Care Coordination. Patient to discharge to care of [facility] today. Spoke with Kourtney [facility] manager case and Farhana [facility] narcotics investigator, along with mother at bedside. Mother's sister is on her way and will transport mother home. RN to get copy of [facility] worker badge for chart. Support and resouces offered to mom who declined. She plans to do what needs to be done by [facility] to get her children back.
--- NOTE | 2024-02-29 18:51 | PC.NURSE ---
[id number] Received call from Chris Murphy (#[phone]) [facility] Cleaning Validation Consultant, he will be here along with Kourtney Barry (#[phone]), [facility] Bleach Analyst to see the patient. 1204 Both Chris Murphy and Kourtney Barry, from [facility] here to see patient and to take baby into custody if baby was cleared for discharge per the helicopter engineer. RN took copies of both of their IDs and placed them on both the mother's and the baby's charts. Chris requested that this RN call Care Coordination and have them come to the room as well. RN called and Yelena to come to the room. 1240 Dr. Clark, Compressor Service Technician, here to see baby in the nursery, she noted intermittent retractions and had RN do vitals, pulse ox (pre and post) and is also ordering a chest xray STAT. Pulse ox was 100% in right hand and 100% in right foot, vitals WNL (see charting). MD will notify RN with chest xray results. 1340 Chest xray was negative, MD had ordered previously for baby to be bottle fed and her feeding assessed. Per this RN the feeding that started at 1300, took baby 30 minutes to take 15mls of formula from the bottle and baby's suck was disorganized, she had been prior. MD to reassess. 1420 Compressor Service Technician called RN, she would like for the baby to stay over night and work on bottle feeding as that is what baby will be doing upon discharge since she is going into [facility] custody and not home with the mother. Plan on discharge tomorrow to [facility], the day shift RN for tomorrow should call Chris Murphy (#[phone]) when baby is cleared for discharge and ready to go, he will be bringing a care seat for the baby to be discharged in. If anything should come up besides discharge, please also call Chris and leave a message on the voicemail if he does not answer. [phone] RN left message on Care Coordination voicemail that both mom and baby were not discharged today but plan on going tomorrow. Copy to be placed in baby's chart
[2024-02-29 18:52] VITALS: BP 118/75; PULSE 85; RESP 20; TEMP 37.2; O2SAT 100
[2024-02-29] MEDS: LIDOCAINE 5% PATCH 1 PATCH TRANSDERM (21:44)
[2024-03-01] MEDS: HYDROcodone/acetaminophen (*CRX) 10-325 MG TABLET 1 TAB PO ×3 (03:30→13:24)
[2024-03-01] MEDS: IBUPROFEN 600 MG TABLET PO ×2 (05:11→12:30)
[2024-03-01] MEDS: ACETAMINOPHEN 325 MG TABLET 650 MG PO ×2 (05:11→12:30)
[2024-03-01] MEDS: SIMETHICONE 80 MG TAB.CHEW PO ×2 (07:44→12:30)
[2024-03-01] MEDS: MULTIVIT/MIN/PREN/FOL AC/IRON TABLET 1 TAB PO (07:44)
[2024-03-01] MEDS: DOCUSATE SODIUM 100 MG CAPSULE PO (07:44)
[2024-03-01] MEDS: POLYSACCHARIDE IRON COMPLEX 150 MG CAPSULE PO (07:44)
[2024-03-01 08:10] VITALS: BP 121/75; PULSE 69; RESP 16; TEMP 36.6; O2SAT 100
--- NOTE | 2024-03-01 08:41 | PM.OBPNVD ---
OB - PN: Subj Subjective Date/time seen: 03/01/24 08:41 Patient comments: no complaints, pain well controlled, incisional pain, tolerating diet and flatus present OB - PN: Obj Data Labs 02/27/24 05:04 OB - PN A/P Plan day: 3 Plan: routine care, discharge home and other Comments: Incision check in one week. Given precautions Time Spent With Patient Time: Total time spent is greater than 50% in coordination of care (as documented) at patient's floor/unit and/or counseling patient: Exam Const: General: comfortable, no acute distress and alert Resp: Effort & Inspection: normal respiratory effort Auscultation: no crackles, no rales and no rhonchi Cardio: Rate: regular rate Heart sounds: no click, no murmurs and no rubs GI: Inspection: non-distended GI Palp: No Tenderness to palpation present (GI) Auscultation: normal bowel sounds Other: Incision - CDI Extrem: General: normal to inspection, no pedal edema and no calf tenderness
== END 2024-03-01 17:25 | disposition home or self-care (01) | DRG 540 ==
LOC: ANHLDR 20:03 → ANHOB2 02-26 09:37
PROVIDERS: Admitting Provider Obstetrics & Gynecology; Visit Provider Obstetrics & Gynecology
PROC: 10D00Z1 Extraction of Products of Conception, Low, Open Approach (ICD-10-PCS; CPT 59514; principal; 2024-02-26 05:40)
DX: O24.429 Gestational diabetes mellitus in childbirth, unspecified control (principal); Z37.0 Single live birth; Z3A.37 37 weeks gestation of pregnancy; O69.0XX0 Labor and delivery complicated by prolapse of cord, not applicable or unspecified
CPT/HCPCS: 36415; 74018; 80307; 82948; 85025; 86592; 86703; 86850; 86900; 86901; 88307; 90715; A9270; G0432; J0290; J0456; J1885; J2270; J2405; J2590; J3010; J3480; J7120

== ENCOUNTER 2024-07-30 09:38 | Outpatient (RCR) | payer OTHER, SELFPAY ==
--- OUTSIDE RECORDS SUMMARY | 2024-07-29 14:48 | XMS_ITS | Data Portability ---
Author Organization [facility] Address [address] [place] [place] [address] Care Team Providers Care Leather Shaver Name Role Phone EMILIA SALGADO Primary Care Provider Assessment No assessment recorded. Plan of Treatment Reminders Order Date Submit Date Provider Last Modified By Organization Details Last Modified Time Details Appointments U/S OB DATING/ VIABILI TY 2024 01:00P M ULTRASOUND Not available Not available Not available FOLLOW UP 2024 02:00P Hans SUMMERS MD Not available Not available Not available FOLLOW UP 2024 02:45P Hans SUMMERS MD Not available Not available Not available U/S OB SNEAK PEAK 2024 02:30P M ULTRASOUND Not available Not available Not available OB SCREEN 2024 03:00P Hans SUMMERS MD Not available Not available Not available Lab HbA1c (hemogl obin A1c), blood 2024 025 [facility] (Lab), [address], [place], [address], 07/20/2024 06:09:36 pregnan cy test, urine 2024 025 [email or web address] [facility], [address], [address], [place], [address], 07/19/2024 10:00:43 Referral None recorde d. Procedures None recorde d. Surgeries salping ectomy, laparos copic (SURG) 2023 025 [id number] [facility], [address], [place], [address], 04/13/2024 14:57:39 Imaging US, obstetr ic, transva ginal 2024 025 [email or web address] [facility] [address], [place], [address], 07/29/2024 14:55:53 Medication Orders None recorde d. Patient TargetsNo targets recorded. Patient InstructionsNo instructions recorded. Reason for Referral None Reported. Results Created Date Observation Date Name Description Value Unit Range Abnormal Flag Note LastModifiedBy Organization Detail LastModifiedTime 02/11/20 24 02/11/2024 CULTU RE: GROUP B STREP SCREE N, REFLE X SUSCE PTIBI LITY result report SEE RESULT S BELOW Test: Cultu re: Group B Strep , Refle x Susce ptibi lity ([facility]/ [facility]/K H/[facility] ) Speci men Sourc e: Vagin a/Rec farhat Speci men Type: Vagin al/Re ctal Speci men Date: 2023 1447 Resul t Date: 2023 1357 Resul t Statu s: Final resul t Abnor mal: No Resul ting Lab: [facility] [address] [facility] [address] Tel: CULTU RE ----- ----- ----- --- No Group B strep isola magaly at 2 days (hardik ctive broth enhan cemen t) Not Available [facility] (Lab) [address] [facility], [place], [address], 02/14/2024 15:01:57 07/20/19 25 07/19/2024 HEMOG LOBIN A1C hemoglobin A1C 5.0 % 4.0-5. 6 The Ameri can Diabe brigida Assoc iatio n recom mends that a prima ry goal of thera py shoul d be a HBA1C of < 7% and that physi cians shoul d reeva luate the treat ment regim en in patie nts with HBA1C value s consi stent ly > 8%. <5.7% Roxana l 5.7 - 6.4% Incre ased risk for diabe brigida >=6.5 % Diagn ostic of diabe brigida <7.0% Goal of thera py >8.0% Actio n sugge sted Not Available [facility] (Lab) [address], [place], [address], 07/20/2024 06:09:36 07/20/19 25 07/19/2024 pregn junior test, urine HCG positi ve Not Available [facility] [address], [place], [address], 07/19/2024 09:50:17 02/04/20 24 02/04/2024 US, obste tric, follo w-up No observ ation record ed. [email or web address] [facility] [address], [place], [address], 02/04/2024 14:32:35 02/08/20 24 02/05/2024 linwood r monit or No observ ation record ed. [email or web address] [facility] [address], [place], [address], 02/11/2024 10:40:05 02/26/20 24 02/26/2024 XR, abdom en + pelvi s No observ ation record ed. [email or web address] [facility] [address], [place], [address], 02/28/2024 20:31:54 07/30/19 25 07/29/2024 imagi ng/di agnos tic resul t No observ ation record ed. [email or web address], [place], [address], 07/29/2024 14:30:29 07/30/19 25 US, obste tric, trans vagin al No observ ation record ed. raquel [facility] [address], [place], [address], 07/29/2024 14:51:10 Result Notes None recorded. Problems Name Problem SNOMED Code Status Onset Date Resolution Date Notes Provider Name and Address Organization Details Recorded Time Mood disorder 32886975 Active 2023 Adelaida De[facility], [facility] 4 15:21:19 Mixed anxiety and depressi ve disorder 497278631 Active 2023 Adelaida [facility], [facility] 4 15:21:34 Pregnanc y 10668429 Completed 202303/04/2024 [facility], [facility] 4 13:00:45 Past pregnanc y history of gestatio nal diabetes mellitus 450395023 Completed Ernesto Summers MD [address], [place], [address], [facility] 4 10:48:02 Prematur e delivery 965403972 Completed 34 weeks - last one Ernesto Summers MD [address], [place], [address], [facility] 4 10:48:02 Grand multipar a 42202811 Completed Ernesto Summers MD [address], [place], [address], [facility] 4 10:48:02 Placenta circumva llata 2623646 Completed Ernesto Summers MD [address], [place], [address], [facility] 4 10:48:02 Hypotens scarlett episode 71066330 Completed multiple episodes - ambulanc e to hospital from work x 2 seen by cardiolo gy Ernesto Summers MD [address], [place], [address], [facility] 4 10:47:31 Large for gestatio n age fetus 990318832 Completed 94th %tile Ernesto Summers MD [address], [place], [address], [facility] 4 13:09:34 Anemia 062361153 Completed severe anemia - Iron infusion referral faxed 12/27 Jerrica max, [facility] 4 17:51:17 Anemia 066767056 Active severe anemia - Iron infusion referral faxed 12/27 Jerrica max, [facility] 4 17:51:17 Gestatio nal diabetes mellitus 60798709 Completed 2023 BS QID - seeing MFM every 2 weeks r/t LGA Michelle max, [facility] 4 10:41:20 Fallopia n tube excision Completed Ernesto Summers MD [address], [place], [address], [facility] 4 10:46:26 Depressi ve disorder 82437871 Completed Ernesto Summers MD [address], [place], [address], [facility] 4 10:46:05 Problem Notes None recorded. Procedures Surgical History Date Name Laterality Status Provider Name and Address Organization Details Recorded Time 07/23/19 24 Date of Last Pap Smear completed Adelaida Decker [facility] 07/23/2023 15:21:55 05/11/19 14 Date of Last Colonoscopy completed Adelaida Decker [facility] 07/23/2023 15:23:11 05/11/19 14 Colonoscopy completed Adelaida Decker [facility] 07/23/2023 15:29:00 05/11/19 12 procedure on elbow completed Adelaida Decker [facility] 07/23/2023 15:29:12 Imaging Results Imaging Date Name Status LastModified by Organization Details LastModified Time 02/04/2024 US, obstetric, follow-up completed [email or web address] [facility] [address], [place], [address], 02/04/2024 14:32:35 02/05/2024 holter monitor completed [email or web address] [facility] [address], [place], [address], 02/11/2024 10:40:05 02/26/2024 XR, abdomen + pelvis completed [email or web address], [place], [address], 02/28/2024 20:31:54 07/29/2024 imaging/diagnost ic result active [email or web address], [place], [address], 07/29/2024 14:30:29 07/29/2024 US, obstetric, transvaginal active raquel [facility] [address], [place], [address], 07/29/2024 14:51:10 Procedure Notes None recorded. Medical Equipment None Reported. Allergies No known drug allergies Medications Name Sig Start Date Stop Date Status Note LastModified by Organization Details LastModified Time quetiapine 25 mg tablet TAKE 1 TABLET BY MOUTH TWICE A DAY 07/22 completed Not Available Not Available Not Available hydrocodone 5 mg-acetamin ophen 325 mg tablet Take 1 tablet every 6 hours by oral route. 2024 active Not Available Not Available Not Avai lable Diflucan 150 mg tablet 07/29 completed Not Available Not Available Not Available sulfamethox azole 800 mg-trimetho prim 160 mg tablet TAKE 1 TABLET BY MOUTH EVERY 12 HOURS FOR 7 DAYS 07/22 completed Not Available Not Available Not Available pantoprazol e 20 mg tablet,fabian yed release active Not Available Not Available Not Available Macrobid 100 mg capsule Take 1 capsule twice a day by oral route. 07/29 completed Not Available Not Available Not Available nortriptyli ne 25 mg capsule active Not Available Not Available Not Available oxycodone-a cetaminophe n 5 mg-325 mg tablet TAKE 1 TABLET BY MOUTH EVERY 4 HOURS NEEDED 03/28 completed Not Available Not Available Not Available magnesium oxide 400 mg (241.3 mg magnesium) tablet 11/04 completed Not Available Not Available Not Available aripiprazol e 10 mg tablet active Not Available Not Available Not Available aripiprazol e 15 mg tablet 02/10 completed Not Available Not Available Not Available atomoxetine 40 mg capsule TAKE 1 CAPSULE BY MOUTH ONCE DAILY active Not Available Not Available No t Available aripiprazol e 5 mg tablet active Not Available Not Available Not Available bupropion HCl XL 150 mg 24 hr tablet, extended release TAKE 1 TABLET BY MOUTH EVERY DAY IN THE MORNING FOR CONCENTRA TION active Not Available Not Available No t Available duloxetine 60 mg capsule,del ayed release 02/10 completed Not Available Not Available Not Available chlorhexidi ne gluconate 0.12 % mouthwash RINSE AND SPIT BY MOUTH TWICE DAILY X 30 SECONDS 03/28 completed Not Available Not Available Not Available Vitamin D3 active Not Available Not Av ailable Not Available active Not Available Not Avai lable Not Available Vitamin B12 active Not Available Not A vailable Not Available Strattera active Not Available Not Ayah ilable Not Available FeroSul 325 mg (65 mg iron) tablet 11/04 completed Not Available Not Available Not Available Latuda active Not Available Not Availa ble Not Available lurasidone 20 mg tablet TAKE 1 TABLET BY MOUTH ONCE DAILY active Not Available Not Available No t Available Eloisa 24 Fe 1 mg-20 mcg (24)/75 mg (4) tablet TAKE 1 TABLET BY MOUTH EVERY DAY 07/22 completed Not Available Not Available Not Available Vitals Date Recorded Body height Body mass index (BMI) Body weight Systolic blood pressure Diastolic blood pressure Provider Name and Address Organization Details Last Updated DateTime 03/04/2024 153.67 cm 22.5 kg/m2 54089.31 g 127 mm[Hg] 80 mm[Hg] Licha Martinez [facility] 4 12:53:27 Date Recorded Body height Body mass index (BMI) Body weight Systolic blood pressure Diastolic blood pressure Provider Name and Address Organization Details Last Updated DateTime 03/28/2024 153.67 cm 21.1 kg/m2 49080.16 g 117 mm[Hg] 71 mm[Hg] Lichaeloise Martinez [facility] 4 10:11:07 Date Recorded Body height Body mass index (BMI) Body weight Heart rate Systolic blood pressure Diastolic blood pressure Provider Name and Address Organization Details Last Updated DateTime 5 153.67 cm 19.4 kg/m2 50318.8 3 g 89 /min 127 mm[Hg] 85 mm[Hg] DAVID Rubalcava [facility] 5 09:42:06 Date Recorded Body height Body mass index (BMI) Body weight Systolic blood pressure Diastolic blood pressure Provider Name and Address Organization Details Last Updated DateTime 07/29/2024 153.67 cm 19.6 kg/m2 02360.42 g 126 mm[Hg] 87 mm[Hg] Lciha [facility] 5 14:56:54 Social History Question Answer Notes LastModified by Organizat ion Details LastModified Time Tobacco Smoking Status Never Smoker Adelaida max, [facility] 07/23/2023 15:28:26 What Is Your Level Of Alcohol Consumption? None [email or web address] Information not available 07/23/2023 If You Are , What Was Your Level Of Alcohol Consumption Prior To ? None [email or web address] Information not available 07/23/2023 Are You Blind Or Do You Have Difficulty Seeing? No [email or web address] Information n ot available 07/23/2023 What Is Your Level Of Caffeine Consumption? Moderate [email or web address] Information not available 07/23/2023 In The 14 Days Before Symptom Onset, Have You Had Close Contact With A Laboratory-confirm ed COVID-19 While That Case Was Ill? No [email or web address] Information n ot available 07/23/2023 In The 14 Days Before Symptom Onset, Have You Had Close Contact With A Person Who Is Under Investigation For COVID-19 While That Person Was Ill? No [email or web address] Information not available 07/23/2023 Have You Been To An Area Known To Be High Risk For COVID-19? No [email or web address] Information not available 07/23/2023 Are You Deaf Or Do You Have Serious Difficulty Hearing? No [email or web address] Information not available 07/23/2023 What Type Of Diet Are You Following? REGULAR [email or web address] Information n ot available 07/23/2023 Which Illicit Or Recreational Drugs Have You Used? Marijuana [email or web address] Information not available 07/23/2023 Do You Use Your Seat Belt Or Car Seat Routinely? Yes [email or web address] Information not available 07/23/2023 Are You Sexually Active? Yes Information not available 07/23/2023 Do You Have Smoke And Carbon Monoxide Detectors In Your Home? Yes [email or web address] Information not available 07/23/2023 Do You Feel Stressed (tense, Restless, Nervous, Or Anxious, Or Unable To Sleep At Night)? [id number] [email or web address] Information not available 07/23/2023 Do You Use Any Illicit Or Recreational Drugs? Yes [email or web address] Information not available 07/23/2023 Do You Use Sunscreen Routinely? Yes [email or web address] Information not available 07/23/2023 Have You Used IV Drugs? No [email or web address] Information not available 07/23/2023 Do You Or Have You Ever Used Any Other Forms Of Tobacco Or Nicotine? No [email or web address] Information not available 07/23/2023 Sex: Unknown Functional Status Question Answer Note LastModified by Organizat ion Details LastModified Time Do you have difficulty walking or climbing stairs? No [email or web address] Information not available 07/23/2023 Are you able to walk? YESWOREST [email or web address] Information not available 07/23/2023 Are you able to care for yourself? Yes [email or web address] Information not available 07/23/2023 Do you have difficulty dressing or bathing? No [email or web address] Information not available 07/23/2023 What is your exercise level? Occasional [email or web address] Information not available 07/23/2023 Mental Status None recorded. Family History Relationship Description Onset Age of this Age Resolved Age Notes LastModified by Organization Details LastModified Time Paternal Uncle Malignant tumor of breast [email or web address] Not available 07/23 08:59:48 Maternal Aunt Malignant tumor of cervix [email or web address] Not available 07/23 08:59:57 Maternal Aunt Diabetes mellitus [email or web address] Not available 07/23 09:00:24 Maternal Aunt Cyst of ovary [email or web address] Not available 2023 12:17:11 Maternal Aunt Disorder of thyroid gland [email or web address] Not available 07/23 09:03:58 Maternal Aunt Endometriosi s (clinical) [email or web address] Not available 12:17:11 Mother Diabetes mellitus [email or web address] Not available 07/23 09:00:24 Paternal Grandmother Diabetes mellitus [email or web address] Not available 07/23 09:00:24 Maternal Grandmother Diabetes mellitus [email or web address] Not available 07/23 09:00:24 Maternal Grandmother Hypertensive disorder Not available 07/23 09:02:01 Maternal Grandmother Malignant tumor of ovary Not available 07/23 09:02:55 Maternal Grandmother Cyst of ovary [email or web address] Not available 2023 12:17:11 Maternal Grandmother Endometriosi s (clinical) [email or web address] Not available 12:17:11 Father Hypercholest erolemia [email or web address] Not available 07/23 09:00:37 Father Hypertensive disorder [email or web address] Not available 07/23 09:02:00 Paternal Grandfather Malignant tumor of lung Not available 07/23 09:02:37 Brother Autism spectrum disorder [email or web address] Not available 2023 12:17:11 Brother Muscular dystrophy [email or web address] Not available 2023 12:17:11 Medical History Condition Response Allergies (Food, seasonal, environmental ) N Other Y Breast Cancer N Drug/Latex Allergies/Reactions N Blood Transfusion N Dermatologic Disorders N Lung Disease N Defects or Inherited Disease N Breast Problem N Gestational Diabetes N Hematologic disorders N Anesthesia Complications N History of STI N Deep Vein Thrombosis N Polycystic ovary syndrome N Anxiety Disorder Y Autoimmune disease N Arthritis N Infertility N Polyps N Acid Reflux (GERD) N History of abnormal pap N Cancer N Stroke N Varicosities N Neurologic/Epilepsy Y Endometriosis N High Cholesterol N Headaches N Fibromyalgia N Kidney Disease N Heart Problems N Kidney or Bladder Problems N Thyroid Problems N GI Problems N Eating Disorder N Anemia Y Art (IVF or FET) N Psychiatric Illness Y Ovarian Cancer N Diabetes N Pulmonary (TB, Asthma) N Hepatitis/Liver Disease N No Past Medical History N Eczema N Urinary Tract Infection N Abuse/Domestic Violence N Asthma N Trauma/Violence N Depression/ depression Y Heart Disease N Pre-Eclampsia N Hypertension N Osteoporosis N Thrombophilias N Gynecological History Statement/Question Response Abnormal Pap N Flow Moderate Date of Last Mammogram Date of LMP 06/20/2024 Was last menstrual period normal Y STIs/STDs N HPV Vaccine N Duration of Flow (days) 4 Current Control Method Breastfeedi ng/BRYNAT Are cycles usually normal Y Date of Last Colonoscopy 05/11/2013 Sexually Active? Y Menses Monthly Y Date of DEXA bone scan Date of Last Pap Smear 07/23/2023 Sexual Problems? N LMP Definite Obstetrics History GPAL:G 6 P 2 3 1 5 Type Value Full Term 2 Spontaneous 1 Premature 3 Living 5 Total 6 Past Encounters Encounter ID Performer Location Encounter Start Date Encounter Closed Date Diagnosis/Indication Diagnosis SNOMED-CT Code Diagnosis ICD10 Code Diagnosis Note [id number] Ginny Lugo [facility] [address] [address] 07/23/2023 14:40:50 07/23/2023 15:05:11 screening 475124007 Z36.87 O09.291 Z3A.01 [id number] Ernesto Summers MD [facility] [address] [address] 07/23/2023 14:42:47 07/23/2023 17:18:01 Amenorrhea 16854025 N91.2 28-year-ol d female presents for amenorrhea . She has a positive test. She had an ultrasound that revealed a 6 week 4 day gestation. Patient will be a grand multipara. She does have some deliveries . Talked about care. Talked about genetic screening. We talked about early ultrasound s. We talked about dating of the . She was given precaution s in that included diet, exercise, over-the-c ounter medication s. She will return for sneak peek in 2 weeks. [id number] [facility] [address] [address] 08/05/2023 12:17:03 08/05/2023 13:45:21 [id number] [facility] [address] [address] 09/01/2023 11:37:08 09/01/2023 12:07:56 screening 130118022 Z36.82 Z3A.12 [id number] Ernesto Summers MD [facility] [address] [address] 09/01/2023 11:40:19 09/01/2023 12:56:09 Routine care 930323723 Z34.91 [id number] [facility] [address],[place] [address] 09/22/2023 11:49:43 09/22/2023 12:28:24 Spotting per vagina in 664726306 O26.852 Z3A.15 [id number] Ernesto Summers MD [facility] [address] [address] 10/02/2023 10:57:14 10/02/2023 12:20:26 Routine care 085459387 Z34.91 [id number] [facility] [address] [address] 11/05/2023 11:10:05 11/05/2023 12:17:50 screening for malformation 352445417 Z36.3 Z3A.21 [id number] Ernesto Summers MD [facility] [address] [address] 11/05/2023 11:10:23 11/05/2023 13:00:13 Vaginitis 92288457 N76.0 Routine an tenatal care 510665141 Z34.91 [id number] Ernesto Summers MD [facility] [address] [address] 11/30/2023 09:50:11 11/30/2023 10:48:48 Routine care 592494786 Z34.91 [id number] Ernesto Summers MD [facility] [address],[place] [address] 12/22/2023 10:55:06 12/22/2023 11:53:51 Routine care 002382786 Z34.91 [id number] Ernesto Summers MD [facility] [address],[place] [address] 01/05/2024 09:56:27 01/05/2024 11:23:42 Routine care 531339469 Z34.91 [id number] Michelle Geeer [facility] [address],[place] [address] 01/08/2024 12:39:52 01/09/2024 10:12:13 Gestational diabetes mellitus 52452272 O24.410 Pt here for diet teaching. Went over ideal ranges for FBS and pp BS. Went over carb counting and carb ranges for each meal/snack . Gave ideas for foods to eat for meals/snac ks. Discussed drink options and to avoid soda and juice and sweet tea. Told pt she can go online to [employer] for meal options or to look up low carb meal recipes online for ideas as well. Pt has a glucometer already r/t hypoglycem ic episodes and has been checking randomly. Fasting this morning was 99. Told pt to check BS QID and adjusting diet to follow low carb diet to try to keep BS within normal range. Pt aware if sugars aren't controlled by diet we would discuss starting insulin. Pt has growth u/s schd with [facility] r/t LGA. Told pt will f/u in 1 week for BS check. Pts questions were answered and pt verbalized understand ing. SARAHI ramsey [id number] Ernesto Summers MD [facility] [address],[place] [address] 01/22/2024 09:48:33 01/22/2024 11:05:07 Routine care 114568270 Z34.91 [id number] Ernesto Summers MD [facility] [address],[place] [address] 01/28/2024 10:36:30 01/29/2024 09:57:47 Routine care 933406399 Z34.91 [id number] Ernesto Summers MD [facility] [address],[place] [address] 02/11/2024 14:42:12 02/11/2024 16:59:51 Routine care 688954672 Z34.91 [id number] Ernesto Summers MD [facility] [address],[place] [address] 02/19/2024 12:21:10 02/19/2024 13:21:20 Routine care 741842695 Z34.91 [id number] Ernesto Summers MD [facility] [address] [address] 02/24/2024 14:06:06 02/24/2024 14:58:34 Routine care 028265416 Z34.91 [id number] JAMESON AVENDANO MD [facility] [address] [address] 03/04/2024 12:10:29 03/04/2024 14:37:16 Postoperative visit 346740202 Z48.89 S/p c section on . Incision well-heale d without any signs of infection2 . Family planning options discussed. She plans to use depo vs tubal ligation to prevent . She will continue to abstain from intercours e until her 6wk visit.3. RTC 4wks for post-partu m check [id number] Ernesto Summers MD [facility] [address] [address] 03/28/2024 09:46:44 03/28/2024 13:00:05 Female sterilization 59420275 Z30.2 care 02203787 8 Z39.2 This patient is a 28-year-ol d female who presents for follow-up. Her baby is doing well. The baby is breastfeed ing. The patient has some issues with anxiety and depression . She is being treated. She had her baby taken. This was for psychiatri c concerns and a significan t other that is troubled. she is not bleeding. We obtained consent for tubal ligation. She has not had intercours e. [id number] Licha Martinez [facility] [address] [address] 07/19/2024 09:34:23 07/19/2024 15:21:50 Contraception care management 110288316 Z30.9 Hyperglycemia 71299407 R 73.9 Mood disorder 11506454 F 39 [id number] [facility] [address] [address] 07/29/2024 13:58:56 07/29/2024 14:55:53 Threatened miscarriage 56687476 O20.0 O26.891 Z3A.01 Health Concerns Section Related Observation LastModified by Organization Detai ls LastModified Time None Recorded Concern Status LastModified by Organization Details LastModified Time None Recorded Advance Directives Directive None Recorded Payers Encounter Date Sequence Insurance Name Policy Number Policy Handley Covered Member ID Handley Member ID Guarantor Name 03/04/2024 1 [facility] (MEDICAID HMO) [id number] Radha Mckeon [id number] Radha Mckeon 03/28/2024 1 [facility] [place] (MEDICAID HMO) [id number] 0003 Radha Mckeon [id number] Radha Mckeon 07/19/2024 1 [facility] [place] ([place] [id number] 0003 Radha Mckeon [id number] Radha Mckeon 07/29/2024 1 [facility] (MEDICAID HMO) [id number] 0003 Radha Mckeon [id number] Radha Mckeon Notes Date Note Type Note Provider Name and Address Organization Details Recorded Time 03/04/2024 text/html s/p C/S 02/25. She presents today for her incision check. Her postop course has been unremarkable. She has minimal spotting, denies pain, fever or any other concerning symptoms. Some pain on left, no pain on right side of incision She is exclusively pumping. Her mood is good. JAMESON AVENDANO MD [address], [place], [address], [facility] 03/04/2024 14:19:59 03/28/2024 text/html This patient is a 28-year-old female who presents for follow-up. Her baby is doing well. The baby is . The patient has some issues with anxiety and depression. She is being treated. She had her baby taken. This was for psychiatric concerns and a significant other that is troubled. she is not bleeding. We obtained consent for tubal ligation. She has not had intercourse. Ernesto Summers MD [address], [place], [address], [facility] 03/28/2024 12:59:30 07/19/2024 text/html . Licha max, [facility] 07/19/2024 15:18:41 OBGyn Episode Ob Episode Information Episode Created Date Number of Fetuses Patient Bloodtype Patient rh Status Prepregnancy Weight lbs Domestic Partner Domestic Partner Phone Father Name Heavy Line Technician Status 07/23/19 24 1 CLOSED Fetus Data First Name Last Name Admitted to NICU Weight (g) Sex Living Outcome Pediatric Complications Fetus ID Race Codes Race Delivery Type 2721.55 2 F Prematur e [id number] Vaginal Delivery Jemal Calculation Initial Jemal Date Initial Exam Date Initial Exam Provider Initial Ultrasound Date Last Menstrual Period Date Ultra Sound Weeks Gestation 0 Eighteen To Twenty Week Jemal Update Ultra Sound Date Fundal Height At Umbil Quickening Date Ultra Sound Latest Weeks Gestation Final Jemal Confirmed By Final Jemal Confirmed Date Final Jemal Date Ultra Sound Latest Days Gestation 0 0 Menstrual History Last Menstrual Date Menses Monthly On Bcp Conception Prior Menses Frequency Hcg Plus Date Menarche Onset Age Delivery Information Delivery Date Delivery Type Labor Anesthesia Weeks Gestation Incision Type Labor Labor Length Hrs Delivered By Post Complications Tubal Sterilization Discharge Date Comments 1 36 true Discharge Information Feeding Method Contraceptive Method Maternal HG B and HCT Levels Ob Episode Information Episode Created Date Number of Fetuses Patient Bloodtype Patient rh Status Prepregnancy Weight lbs Domestic Partner Domestic Partner Phone Father Name Heavy Line Technician Status 07/23/19 24 1 CLOSED Fetus Data First Name Last Name Admitted to NICU Weight (g) Sex Living Outcome Pediatric Complications Fetus ID Race Codes Race Delivery Type , Spont[place] ous [id number] Jemal Calculation Initial Jemal Date Initial Exam Date Initial Exam Provider Initial Ultrasound Date Last Menstrual Period Date Ultra Sound Weeks Gestation 0 Eighteen To Twenty Week Jemal Update Ultra Sound Date Fundal Height At Umbil Quickening Date Ultra Sound Latest Weeks Gestation Final Jemal Confirmed By Final Jemal Confirmed Date Final Jemal Date Ultra Sound Latest Days Gestation 0 0 Menstrual History Last Menstrual Date Menses Monthly On Bcp Conception Prior Menses Frequency Hcg Plus Date Menarche Onset Age Delivery Information Delivery Date Delivery Type Labor Anesthesia Weeks Gestation Incision Type Labor Labor Length Hrs Delivered By Post Complications Tubal Sterilization Discharge Date Comments Discharge Information Feeding Method Contraceptive Method Maternal HG B and HCT Levels Ob Episode Information Episode Created Date Number of Fetuses Patient Bloodtype Patient rh Status Prepregnancy Weight lbs Domestic Partner Domestic Partner Phone Father Name Heavy Line Technician Status 09/01/19 24 1 O Positive 96 CLOSED Fetus Data First Name Last Name Admitted to NICU Weight (g) Sex Living Outcome Pediatric Complications Fetus ID Race Codes Race Delivery Type 3572.03 7 F [id number] Problems Problem Notes [email or web address] [email or web address] appt: 12/10 11/01 9:45am u/s, 1 week follow up MD visit on 02/11/24 9:30am. [facility] visit for u/s & added on DE appt 02/22/2024. Problem Name Start Date End Date Resolution Snomed Code Not e Hypotensive episode [id number] multiple episodes - ambulance to hospital from work x 2seen by cardiology Depressive disorder [id number] Past history of gestational diabetes mellitus [id number] Premature delivery [id number] 3 4 weeks - last one Grand multipara [id number] Anemia [id number] severe ane xander - [facility] infusion referral faxed 12/27 Gestational diabetes mellitus 01/07/2024 [id number] BS QID - seeing MFM every 2 weeks r/t LGA Large for gestation age fetus [id number] 94th %tile Placenta circumvallata [id number] Fallopian tube excision [id number] 002 Jemal Calculation Initial Jemal Date Initial Exam Date Initial Exam Provider Initial Ultrasound Date Last Menstrual Period Date Ultra Sound Weeks Gestation 03/13/2024 09/01/2023 07/23/2023 6 Eighteen To Twenty Week Jemal Update Ultra Sound Date Fundal Height At Umbil Quickening Date Ultra Sound Latest Weeks Gestation Final Jemal Confirmed By Final Jemal Confirmed Date Final Jemal Date Ultra Sound Latest Days Gestation 0 [email or web address] 09/01/2023 03/13/20 24 0 Pre- Flowsheet Flowsheet Date 09/01/2023 Lowe Score Blood Edema Fundus Height Fundus Units Glucose Ketones Leukocytes Nitrite Labor Signs Protein Cervic Dilation Cervic Effacement Cervic Station 12 Type Weight in lbs Pre/Post Dialysis Refused Weight 97.8995650247708 BP Diastolic BP Location Tested BP Systolic BP Type 74 L arm 106 sitting Fetus Heart Rate Present A 145 Fetus Movement Comments this patient is a 28-year-ol d 6 para 2214 at 12 weeks' gestation who presents for initial care. She has no complaints today. She has a history of gestational diabetes. She is history of delivery. delivery history is questionable giving the weights of her babies. Both over 6 lb. Discussed care in detail. Discussed vaccines. She will begin routine care. Flowsheet Date 09/22/2023 Lowe Score Blood Edema Fundus Height Fundus Units Glucose Ketones Leukocytes Nitrite Labor Signs Protein Cervic Dilation Cervic Effacement Cervic Station Type Weight in lbs Pre/Post Dialysis Refused BP Diastolic BP Location Tested BP Systolic BP Type Fetus Heart Rate Present Fetus Movement Comments Flowsheet Date 10/02/2023 Lowe Score Blood Edema Fundus Height Fundus Units Glucose Ketones Leukocytes Nitrite Labor Signs Protein Cervic Dilation Cervic Effacement Cervic Station neg trace none trace Type Weight in lbs Pre/Post Dialysis Refused Weight 100.275106062191 BP Diastolic BP Location Tested BP Systolic BP Type 68 L arm 108 sitting Fetus Heart Rate Present Fetus Movement A Yes Comments Patient c/o of nausea and sl ight swelling in feet, on her feet all day Flowsheet Date 11/05/2023 Lowe Score Blood Edema Fundus Height Fundus Units Glucose Ketones Leukocytes Nitrite Labor Signs Protein Cervic Dilation Cervic Effacement Cervic Station Type Weight in lbs Pre/Post Dialysis Refused BP Diastolic BP Location Tested BP Systolic BP Type Fetus Heart Rate Present Fetus Movement Comments Flowsheet Date 11/05/2023 Lowe Score Blood Edema Fundus Height Fundus Units Glucose Ketones Leukocytes Nitrite Labor Signs Protein Cervic Dilation Cervic Effacement Cervic Station neg none Type Weight in lbs Pre/Post Dialysis Refused Weight 106.42864574296 BP Diastolic BP Location Tested BP Systolic BP Type 67 L arm 102 sitting Fetus Heart Rate Present Fetus Movement A Yes Comments Severe vaginitis noted, copi ous discharge, white discharge, severe vulvar irritation. To treat and suppressed. She has these each month. We will treat with Diflucan. Then a Diflucan tablet once a week. Otherwise no complaints, no problems, routine care, Ultrasound was good today, completed anatomy. Flowsheet Date 11/30/2023 Lowe Score Blood Edema Fundus Height Fundus Units Glucose Ketones Leukocytes Nitrite Labor Signs Protein Cervic Dilation Cervic Effacement Cervic Station neg none Type Weight in lbs Pre/Post Dialysis Refused Weight 111.652393688078 BP Diastolic BP Location Tested BP Systolic BP Type 67 L arm 106 sitting Fetus Heart Rate Present A 132 Fetus Movement A Yes Comments Repetitive syncopal episodes . Blood pressures are reasonable here in the office on every occasion. To see MFM as soon as possible for syncope. Consult arranged by office staff. No contractions, no loss of fluid, no vaginal bleeding. Flowsheet Date 12/22/2023 Lowe Score Blood Edema Fundus Height Fundus Units Glucose Ketones Leukocytes Nitrite Labor Signs Protein Cervic Dilation Cervic Effacement Cervic Station Type Weight in lbs Pre/Post Dialysis Refused 117.265814350477 BP Diastolic BP Location Tested BP Systolic BP Type 70 L arm 109 sitting Fetus Heart Rate Present A 145 Fetus Movement A Yes Comments no complaints, no problems, routine care, no contractions, no vaginal bleeding, no loss of fluid, no crampingseen by MFM for syncope - evaluation and treatmnet continuesLGA Flowsheet Date 01/05/2024 Lowe Score Blood Edema Fundus Height Fundus Units Glucose Ketones Leukocytes Nitrite Labor Signs Protein Cervic Dilation Cervic Effacement Cervic Station 34 cm Type Weight in lbs Pre/Post Dialysis Refused 119.067636495341 BP Diastolic BP Location Tested BP Systolic BP Type 76 L arm 116 sitting Fetus Heart Rate Present A 126 Fetus Movement A Yes Comments no complaints, no problems, routine care, no contractions, no vaginal bleeding, no loss of fluid, no cramping Flowsheet Date 01/08/2024 Lowe Score Blood Edema Fundus Height Fundus Units Glucose Ketones Leukocytes Nitrite Labor Signs Protein Cervic Dilation Cervic Effacement Cervic Station Type Weight in lbs Pre/Post Dialysis Refused BP Diastolic BP Location Tested BP Systolic BP Type 67 104 Fetus Heart Rate Present Fetus Movement Comments Flowsheet Date 01/22/2024 Lowe Score Blood Edema Fundus Height Fundus Units Glucose Ketones Leukocytes Nitrite Labor Signs Protein Cervic Dilation Cervic Effacement Cervic Station Type Weight in lbs Pre/Post Dialysis Refused Weight 121.603024134016 BP Diastolic BP Location Tested BP Systolic BP Type 73 L arm 109 sitting Fetus Heart Rate Present A 151 Fetus Movement A Yes Comments no complaints, no problems, routine care, no contractions, no vaginal bleeding, no loss of fluid, no crampingresonable blood sugars - some elevated fasting, to work on it and rtc in one week Flowsheet Date 01/28/2024 Lowe Score Blood Edema Fundus Height Fundus Units Glucose Ketones Leukocytes Nitrite Labor Signs Protein Cervic Dilation Cervic Effacement Cervic Station Type Weight in lbs Pre/Post Dialysis Refused Weight 121.318596582029 BP Diastolic BP Location Tested BP Systolic BP Type 69 L arm 105 sitting Fetus Heart Rate Present A 144 Fetus Movement A Yes Comments no complaints, no problems, routine care, no contractions, no vaginal bleeding, no loss of fluid, no cramping We will be seeing Neurology and Cardiology soon for hypotension and near-syncope. Reasonable blood sugar control. Flowsheet Date 02/11/2024 Lowe Score Blood Edema Fundus Height Fundus Units Glucose Ketones Leukocytes Nitrite Labor Signs Protein Cervic Dilation Cervic Effacement Cervic Station 35 cm 3cm 50% -1 Type Weight in lbs Pre/Post Dialysis Refused Weight 125.529599831750 BP Diastolic BP Location Tested BP Systolic BP Type 77 L arm 116 sitting Fetus Heart Rate Present A 145 Fetus Movement A Yes Comments no complaints, no problems, routine care, no contractions, no vaginal bleeding, no loss of fluid, no cramping Flowsheet Date 02/19/2024 Lowe Score Blood Edema Fundus Height Fundus Units Glucose Ketones Leukocytes Nitrite Labor Signs Protein Cervic Dilation Cervic Effacement Cervic Station Type Weight in lbs Pre/Post Dialysis Refused Weight 124.195443250880 BP Diastolic BP Location Tested BP Systolic BP Type 87 L arm 127 sitting Fetus Heart Rate Present A 145 Fetus Movement A Yes Comments no complaints, no problems, routine care, no contractions, no vaginal bleeding, no loss of fluid, no cramping Flowsheet Date 02/24/2024 Lowe Score Blood Edema Fundus Height Fundus Units Glucose Ketones Leukocytes Nitrite Labor Signs Protein Cervic Dilation Cervic Effacement Cervic Station Type Weight in lbs Pre/Post Dialysis Refused 126.01872568096 BP Diastolic BP Location Tested BP Systolic BP Type 80 L arm 119 sitting Fetus Heart Rate Present Fetus Movement A Yes Comments Flowsheet Date 03/04/2024 Lowe Score Blood Edema Fundus Height Fundus Units Glucose Ketones Leukocytes Nitrite Labor Signs Protein Cervic Dilation Cervic Effacement Cervic Station Type Weight in lbs Pre/Post Dialysis Refused Weight 117.051030873617 BP Diastolic BP Location Tested BP Systolic BP Type 80 L arm 127 sitting Fetus Heart Rate Present Fetus Movement Comments Menstrual History Last Menstrual Date Menses Monthly On Bcp Conception Prior Menses Frequency Hcg Plus Date Menarche Onset Age Genetic Screening And Infection History Question Response Note Mental Retardation/Autism false Patient's Age Will Be 35 Years Or Older At Estim ated Date of Delivery false Thalassemia (Hebrew, Romanian, Mediterranean, Or Background): MCV < 80 false Neural Tube Defect (Meningomyelocele, Spina Bifi da, Or Anencephaly) false Congenital Heart Defect false Down Syndrome false Ori-Sachs (eg, Pentecostal, Cajun, P[place]inig[place]) f alse Darlin Disease false Sickle Cell Disease Or Trait () false Hemophilia Or Other Blood Disorders false Muscular Dystrophy false Cystic Fibrosis false Holland's Chorea false Intellectual Disability/Autism false If Yes, Was Person Tested For Fragile X? false Other Inherited Genetic Or Chromosomal Disorder false Maternal Metabolic Disorder (eg, Type 1 Diabetes , PKU) false Patient Or Baby's Father Had A Child With Defects Not Listed Above false Recurrent Loss, Or A Stillbirth false Medications (including Suppl ements, Vitamins, Herbs, OTC Drugs), Illicit/Recreational Drugs, Alcohol false If Yes, Agent(s) And Strength/Dosage false Any Other Genetic History false Live With Someone With TB Or Exposed To TB false Patient Or Partner Has History Of Genital Herpes false Rash Or Viral Illness Since Last Menstrual Perio d false History Of STD, Gonorrhea, Chlamydia, HPV, Syphi lis false Other Infection History false History of HIV false History of Hepatitis false Prior GBS-infected child false Hemoglobinopathy Or Carrier false Other Structural Defect false Recent Travel History Outside of Country false Delivery Information Delivery Date Delivery Type Labor Anesthesia Weeks Gestation Incision Type Labor Labor Length Hrs Delivered By Post Complications Tubal Sterilization Discharge Date Comments 4 Regional-Sp inal 37.5 Low Transvers e true Ernesto Summers MD false Discharge Information Feeding Method Contraceptive Method Maternal HG B and HCT Levels Ob Episode Information Episode Created Date Number of Fetuses Patient Bloodtype Patient rh Status Prepregnancy Weight lbs Domestic Partner Domestic Partner Phone Father Name Heavy Line Technician Status 07/23/19 24 1 CLOSED Fetus Data First Name Last Name Admitted to NICU Weight (g) Sex Living Outcome Pediatric Complications Fetus ID Race Codes Race Delivery Type 3600.15 9704 M Full Term [id number] Vaginal Delivery Jemal Calculation Initial Jemal Date Initial Exam Date Initial Exam Provider Initial Ultrasound Date Last Menstrual Period Date Ultra Sound Weeks Gestation 0 Eighteen To Twenty Week Jemal Update Ultra Sound Date Fundal Height At Umbil Quickening Date Ultra Sound Latest Weeks Gestation Final Jemal Confirmed By Final Jemal Confirmed Date Final Jemal Date Ultra Sound Latest Days Gestation 0 0 Menstrual History Last Menstrual Date Menses Monthly On Bcp Conception Prior Menses Frequency Hcg Plus Date Menarche Onset Age Delivery Information Delivery Date Delivery Type Labor Anesthesia Weeks Gestation Incision Type Labor Labor Length Hrs Delivered By Post Complications Tubal Sterilization Discharge Date Comments 0 41.6 Discharge Information Feeding Method Contraceptive Method Maternal HG B and HCT Levels Ob Episode Information Episode Created Date Number of Fetuses Patient Bloodtype Patient rh Status Prepregnancy Weight lbs Domestic Partner Domestic Partner Phone Father Name Heavy Line Technician Status 07/23/19 24 1 CLOSED Fetus Data First Name Last Name Admitted to NICU Weight (g) Sex Living Outcome Pediatric Complications Fetus ID Race Codes Race Delivery Type 2721.55 2 M Prematur e 16429 Vaginal Delivery Jemal Calculation Initial Jemal Date Initial Exam Date Initial Exam Provider Initial Ultrasound Date Last Menstrual Period Date Ultra Sound Weeks Gestation 0 Eighteen To Twenty Week Jemal Update Ultra Sound Date Fundal Height At Umbil Quickening Date Ultra Sound Latest Weeks Gestation Final Jemal Confirmed By Final Jemal Confirmed Date Final Jemal Date Ultra Sound Latest Days Gestation 0 0 Menstrual History Last Menstrual Date Menses Monthly On Bcp Conception Prior Menses Frequency Hcg Plus Date Menarche Onset Age Delivery Information Delivery Date Delivery Type Labor Anesthesia Weeks Gestation Incision Type Labor Labor Length Hrs Delivered By Post Complications Tubal Sterilization Discharge Date Comments 2 35 true hole in lung Discharge Information Feeding Method Contraceptive Method Maternal HG B and HCT Levels Ob Episode Information Episode Created Date Number of Fetuses Patient Bloodtype Patient rh Status Prepregnancy Weight lbs Domestic Partner Domestic Partner Phone Father Name Heavy Line Technician Status 07/23/19 24 1 CLOSED Fetus Data First Name Last Name Admitted to NICU Weight (g) Sex Living Outcome Pediatric Complications Fetus ID Race Codes Race Delivery Type 3855.53 2 F Full Term [id number] Vaginal Delivery Jemal Calculation Initial Jemal Date Initial Exam Date Initial Exam Provider Initial Ultrasound Date Last Menstrual Period Date Ultra Sound Weeks Gestation 0 Eighteen To Twenty Week Jemal Update Ultra Sound Date Fundal Height At Umbil Quickening Date Ultra Sound Latest Weeks Gestation Final Jemal Confirmed By Final Jemal Confirmed Date Final Jemal Date Ultra Sound Latest Days Gestation 0 0 Menstrual History Last Menstrual Date Menses Monthly On Bcp Conception Prior Menses Frequency Hcg Plus Date Menarche Onset Age Delivery Information Delivery Date Delivery Type Labor Anesthesia Weeks Gestation Incision Type Labor Labor Length Hrs Delivered By Post Complications Tubal Sterilization Discharge Date Comments 7 40 true hx labor at 16wks Discharge Information Feeding Method Contraceptive Method Maternal HG B and HCT Levels
--- OUTSIDE RECORDS SUMMARY | 2024-07-29 14:49 | XMS_ITS | Clinical Summary ---
Author Organization [facility] Address [address] [place] [address] Care Team Providers Care Package Liner Name Role Phone Jimmie Robles MD Primary Care Provider [phone] Source Comments [facility],non-owned Affiliates and Associated Physician Practices is amultiple site organization consisting of ambulatory clinics and hospital sitesin [place], [place], [place] and [place]. This disclosure is being madepursuant to the Care Everywhere program and may not contain all information available regarding this patient. Last updated 18.[facility] Allergies No known active allergies Medications * Be aware that medications may not be up to date on this document. Alwaysverify current medications with the patient. Medication Sig Dispensed Refills Start Date End Date Status polyethylene glycol 3350 (MIRALAX) powder Take 17 g by mouth 2 times daily 500 g 2 04/27/2015 Active Additional Information Patient not taking.Reason: Other, Informant: Patient, Reported on 02/04/2024 amitriptyline (ELAVIL) 10 MG tablet Take 1 Tab by mouth at bedtime 90 Tab 3 06/29/2015 Active Additional Information Patient not taking.Reason: Other, Informant: Patient, Reported on 02/04/2024 atenolol (TENORMIN) 25 MG tabletIndications: vasovagal syncope Take 2 Tabs by mouth once daily Reasons: vasovagal syncope 60 Tab 11 07/05/2015 Active Additional Information Patient not taking.Reason: Other, Informant: Patient, Reported on 02/04/2024 ferrous sulfate 325 (65 FE) MG tablet Take 1 (one) tablet by mouth once daily 100 tablet 12/07/2023 Active Additional Information Patient not taking.Reason: Other, Reported on 02/25/2024 docusate sodium (Colace) 100 MG capsule Take 1 (one) capsule by mouth once daily 60 capsule 12/07/2023 Active Additional Information Patient not taking.Reason: Other, Informant: Patient, Reported on 02/04/2024 fluconazole (Diflucan) 150 MG tablet 12/17/2023 Active nitrofurantoin monohyd macro crystals (Macrobid) 100 MG capsule TAKE 1 CAPSULE BY MOUTH TWICE DAILY FOR 5 DAYS DIRECTED 08/03/2023 Active MV-Min-Fe Fum-FA-DHA ( Multi +DHA) 27-0.8-250 MG CAPS Take by mouth once daily Active sulfamethoxazole-t rimethoprim (Bactrim DS; Septra DS) 800-160 MG tablet Take 1 (one) tablet by mouth 04/08/2023 Active cyanocobalamin (Vitamin B-12) 100 MCG tablet Take 1 (one) tablet by mouth once daily Active Cholecalciferol (Vitamin D3) 75 MCG (3000 UT) Active pantoprazole EC (Protonix) 20 MG tablet Take 1 (one) tablet by mouth once daily 90 tablet 1 02/11/2024 Active Additional Information Patient not taking.Reason: Other, Reported on 02/25/2024 Active Problems Patient Care Coordination No te Formatting of this note migh t be different from the original. [employer] form completed. Diapers given. 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 [place] [address] Usha Charles, RN Care Management Other (Called pt to follow up with resources sent by [facility] team. Pt is 8+weeks PP. No answer, VML. MyChart-baby/pregnanc y resources. Will close referral if no response by 05/26.) from Last 3 Months Family History Medical History Relation Name Comments Muscular Dystrophy Brother Anxiety Disorder Maternal Aunt Heart Disease Maternal Aunt Anxiety Disorder Maternal Grandmother Arthritis Maternal Grandmother Diabetes Maternal Grandmother Lupus Maternal Grandmother [place]<65(female) Maternal Grandmother Thyroid Disease Maternal Grandmother Anxiety Disorder Mother Depression Mother Other Mother hypoglycemia Clotting Disorder Other Heart Disease Other great grandma SIDS Other Thyroid Disease Other Crohn's Disease Paternal Aunt Arthritis Paternal Grandmother Asthma Paternal Grandmother Cancer Paternal Grandmother lung Depression Paternal Grandmother Diabetes Paternal Grandmother Infertility Neg Hx Relation Name Status Comments Brother Maternal Aunt Maternal Grandmother Mother Other Paternal Aunt Paternal Grandmother Social History Tobacco Use Types Packs/Day Years Used Date Smoking Tobacco: Never Passive Smoke Exposure: Yes Tobacco Cessation:Counseling Given: Not Answered Alcohol Use Standard Drinks/Week Comments No 0 (1 standard drink = 0.6 oz pur e alcohol) Overall Financial Resource Strain (CARDIA) Answe r Date Recorded How hard is it for you to pa y for the very basics like food, housing, medical care, and heating? Very hard 01/18/2024 [facility] [place] [facility] Occupat ional Health - Occupational Stress Questionnaire Answer Date Recorded Do you feel stress - tense, restless, nervous, or anxious, or unable to sleep at night because your mind is troubled all the time - these days? Very much 01/18/2024 Hunger Vital Sign Answer Date Recorded Within the past 12 months, y ou worried that your food would run out before you got the money to buy more. Sometimes true Within the past 12 months, t he food you bought just didn't last and you didn't have money to get more. Sometimes true 01/2024 PRAPARE - Transportation Answer Date Re corded In the past 12 months, has l ack of transportation kept you from medical appointments or from getting medications? No 01/2024 In the past 12 months, has l ack of transportation kept you from meetings, work, or from getting things needed for daily living? No 01/18/2024 Housing Stability Vital Sign Answer Maximo e Recorded In the last 12 months, was t here a time when you were not able to pay the mortgage or rent on time? Yes 01/18/2024 In the last 12 months, how many places have you lived? 1 01/18/2024 In the last 12 months, was t here a time when you did not have a steady place to sleep or slept in a long-term (including now)? No 01/18/2024 [place] Depression Scale Answer Date Recorded [place] Depression Scale Total 12 12/07/2023 The thought of harming myself has occurred to me . Never 12/07/2023 Sex and Gender Information Value Date Recorded Sex Assigned at Not on file Gender Identity Not on file Sexual Orientation Not on file Last Filed Vital Signs Vital Sign Reading Time Taken Comments Blood Pressure 110/74 02/25/2024 10:20 AM CDT Pulse 96 02/25/2024 10:20 AM CDT Temperature 36.7 C (98.1 F) 01/18/2024 9:50 AM CDT Respiratory Rate 16 02/25/2024 10:20 AM CDT Oxygen Saturation 98% 01/18/2024 9:50 AM CDT Inhaled Oxygen Concentration - - Weight 58.1 kg (128 lb) 02/25/2024 12:00 PM CDT Height 154.9 cm (5' 1) 02/25/2024 12:00 PM CDT Body Mass Index 24.19 02/25/2024 12:00 PM CDT Plan of Treatment Health Maintenance Due Date Last Done Comments HEPATITIS C SCREENING 05/09/2015 DTAP/TDAP/TD VACCINES (1 - Tdap) 2016 HEPATITIS B VACCINE (1 of 3 - 19+ 3-dose series) 2016 PAP SMEAR 02/23/2023 02/24/2020 COVID-19 VACCINE (1 - 2023- season) 2024 INFLUENZA VACCINE (#1) 2024 7, 02/13/2016, 01/21/2013, Additional history exists DEPRESSION SCREENING 05/11/2024 12/07/2023 ZOSTER VACCINE (1 of 2) 2047 HIV SCREENING Completed 12/22/2023, 09/01/2023 HIB VACCINE Aged Out No longer eligi ble based on patient's age to complete this topic HPV VACCINE Aged Out No longer eligi ble based on patient's age to complete this topic MENINGOCOCCAL (Group B) VACCINE SHARED DECISION-MAKING Aged Out No longer eligible based on patient's age to complete this topic MENINGOCOCCAL GROUPS A/C/Y/W VACCINE Aged Out No longer eligible based on patient's age to complete this topic PNEUMOCOCCAL VACCINE Aged Out No long er eligible based on patient's age to complete this topic Procedures Procedure Name Priority Date/Time Associated Diagnosis Comments CULTURE STREP B STAT 01/18/2024 12:22 PM CDT 32 weeks gestation of from Last 3 Months or Most Recently Relevant to Health Maintenance Results * CULTURE STREP B (01/18/2024 12:22 PM CDT) Culture Strep B Negative for beta-hemolytic Streptococcus Group B BONNIE 01/21/2024 12:27 PM CDT [facility] Microbiology MISCELLANEOUS SAMPLES / Unknown Collection / Unknown 01/18/2024 12:22 PM CDT 01/18/2024 12:28 PM CDT Laura Helm MD LAB - MICROBIOLOGY O RDERABLES [facility] [address] [place] [address], [facility] [phone] from Last 3 Months or Most Recently Relevant to Health Maintenance Care Teams Package Liner Relationship Specialty Start Date End Date Jimmie Robles MD [facility] [place] [address] PCP - General Pediatrics 02/22/14
--- OUTSIDE RECORDS SUMMARY | 2024-07-29 14:49 | XMS_ITS | Patient Health Record ---
Author Organization [facility] Address [address] [place] [address] Care Team Providers Care Rectifying Operator Name Role Phone Jessi Cowan Primary Care Provider [phone] Allergies Allergen (clinical drug ingredient) Drug/Non Drug Allergy documented on EMR Reaction Allergy Type Onset Date Status Green Peppers (uncoded) Unknown Allergy Active Reason For Referral No Information Medications Medication SIG (Take, Route, Frequency, Duration) Notes Start Date End Date Status Adult Gummy/DHA/FA 0.4-25 MG as directed Orally Active Vitamin B 12 500 MCG 1 tablet Orally Once a day Active Latuda 20 MG 1 tablet in the evening with food Orally Once a day Active Strattera 40 MG 1 capsule in the morning Orally Once a day Active Melatonin 5 MG 1 tablet in the evening Orally Once a day Active Nortriptyline HCl 25 MG 1 capsule at bedtime Orally Once a day after 1 week take 2 tabs Neuro prescribes Active Social History Tobacco Use: Social History Observation Description Date Details (start date - stop date) Never Smoker NA - NA Sex Assigned At : Social History Observation Description Sex Assigned At Female Tobacco Control (Standard) Question Answer Notes Tobacco use: Nonsmoker Problems Problem Type SNOMED Code ICD Code Onset Dates Problem Status W/U Status Risk Notes Problem Mood disorder (50249257) Mood disorder (F39) Active confirmed Problem Attention deficit hyperactivity disorder (276832872) ADHD (attention deficit hyperactivity disorder), combined type (F90.2) Active confirmed Problem Anxiety disorder (303556155) Anxiety disorder (F41.9) Active confirmed Vital Signs Heart Rate 112 /min 07/27/2024 Temperature 98.0 degrees Fahrenheit 07/27/2024 Respiratory Rate 16 /min 07/27/2024 Blood pressure diastolic 72 mm Hg 07/27/2024 Oximetry 98 % 07/27/2024 Height 61 in 07/27/2024 Blood pressure systolic 118 mm Hg 07/27/2024 Weight 104 lbs 07/27/2024 BMI 19.65 kg/m2 07/27/2024 Encounters Encounter Location Date Provider Diagnosis [facility] [address] [place] [address] 07/27/2024 Jessi Cowan ADHD (attention deficit hyperactivity disorder), combined type F90.2 ; Anxiety disorder F41.9 and Mood disorder F39 [address] [place] [address] 07/22/2024 Jessi Cowan [address] [address] 07/25/2024 Jessi Cowan Assessments Encounter Date Diagnosis (ICD Code) Assessment Notes Treatment Notes Treatment Clinical Notes Section Notes 07/27/2024 ADHD (attention deficit hyperactivity disorder), combined type (ICD-10 - F90.2) No changes- may want to increase Strattera in the future when her stressors have resolved. Written RX given 07/27/2024 Anxiety disorder (ICD-10 - F41.9) Pt didnt want to make changes today. 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 If this condition is suspected please seek emergent medical attention. Pt receptive Pt aware to call 911 and or [phone] if having thoughts of suicide plan or intent or having homicidal ideations. Pt voiced understanding. Discussed anxiety and ways to avoid triggers and reduce anxious states 07/27/2024 Mood disorder (ICD-10 - F39) Needs AIMS at future visit Cont current meds- encouraged pt to merchandise pickup/receiving associate lurasidone anastasia Pt voiced understanding 07/27/2024 Other F/U in 2 months Plan Of Treatment Next Appt Details Provider Name:Jessi Alvarez , 09/14/2024 09:00:00 AM, [address] [place], [address], Insurance Providers Payer Name Payer Address Payer Phone Subscriber Number Group Number Insured Name Patient Relationship to Insured Coverage Start Date Coverage End Date [address] [phone] [id number] Radha Mckeon Self - patient is the insured 5 Medical (General) History Surgical History Surgery Date(Month/Year) right elbow surgery Hospitalization History Reason Date(Month/Year) migraines miscarriage passing out
--- OUTSIDE RECORDS SUMMARY | 2024-07-29 14:49 | XMS_ITS | Clinical Summary ---
Author Organization [facility] Address [address] [place] [address] Care Team Providers Care Manager Pricing Name Role Phone Ernesto Summers MD Primary Care Provider Allergies No known active allergies Medications vit 65-ymyu-dohzz-d thomas 27mg iron- 800 mcg-250 mg capsuleIndicati ons: Take by mouth daily Active cyanocobalamin (Vitamin B-12) 100 mcg tablet Take 1 tablet (100 mcg total) by mouth daily Active cholecalciferol (VITAMIN D-3) 50,000 unit capsule Active atomoxetine (STRATTERA) 40 mg capsule Take 1 capsule (40 mg total) by mouth daily 06/07/2024 Active lurasidone (LATUDA) 20 mg tablet Take 1 tablet (20 mg total) by mouth daily 05/22/2024 Active nortriptyline (PAMELOR) 25 mg capsule 1 capsule at hs for two weeks then increase to 2 capsules at hs daily 60 capsule 5 07/18/2024 Active Active Problems Problem Noted Date Diagnosed Date Hyperlipidemia LDL goal <100 06/20/2024 Altered mental status 01/27/2024 Syncope and collapse 01/27/2024 Lipid screening 01/27/2024 SOB (shortness of breath) 01/27/2024 Chest pain 01/27/2024 History of seizure 01/27/2024 Threatened 2023 care following vaginal delivery 01/18 Overview (01/20/2022): # ID: Afebrile. No signs/symptoms of infection. #COVID-19: Negative #hx Syphilis: Pt w/ RPR+ w/ titer 1:64 05/2021 s/p treatment w/ 3 doses of PCN. Negative RPR on 01/18 # Heme: EBL 200 mL. Hgb 8.4 on 01/18. Pt with dizziness on standing and easily SOB w/ activity. Has not been taking PO iron as she doesn't tolerate it. Iron studies sent. IV Dextran ordered and dc home with Rx for Fe. # CV/Pulm: Vital signs stable, within normal limits. # GI/: Tolerating PO. Voiding spontaneously. # Seizure d/o: on no meds # Pain: Controlled with above regimen. # Post DVT prophylaxis: The patient has the following MAJOR risk factors none and the following MINOR risk factors parity >/=3. SCDs ordered for VTE prophylaxis. # MOC: Declines until visit # MOF: . Urine drug screen negative Patient informed of results: yes. # COVID Vaccination Status: Not assessed # Disposition: Follow up task sent to [facility] scheduling pool. Desires discharge home today. premature rupture of membranes 2 Influenza A 07/11/2021 Abdominal pain during 07/11/2021 Nausea and vomiting during 07/10/2021 Uterine contractions during 07/22/2020 Overview (07/22/2020): 1. Labor: Consents signed and placed in chart. Send CBC/T&S/RPR/Ob panel. Expectant management of labor. SROM 1845 2. FWB: Continuous monitoring. tracing category II, reassured by moderate variability 3. ID: HIV pending. GBS positive, onPCN. Membrane Status: intact. 4. Indications for UDS: history of illicit drug use in last 12 months. Verbal consent obtained for UDS: No 5. MOF: Plans to formula feed. 6. MOC: Plans to use depo for contraception. 7. Pain management: Epidural placed. 8. Post DVT prophylaxis: The patient has the following MAJOR risk factors none and the following MINOR risk factors parity >/=3. SCDs will be ordered for VTE prophylaxis . 9. COVID Test Status: Test sent on admission GBS bacteriuria 01/25/2019 Overview (03/19/2020): <100,000 in urine 12/27/19. Will need PCN in labor Chlamydia infection 01/25/2019 Overview (01/25/2019): D/w Dr. Akers who will arrange treatment tomorrow. Depression 03/30/2014 Anxiety 03/30/2014 Resolved Problems Problem Noted Date Diagnosed Date Resolved Date care following vaginal delivery 07/22/2020 01/18/2022 Overview (07/23/2020): # ID: Afebrile. No signs/symptoms of infection. PNL sent; VZV/HepC pending. #COVID-19: Preadmission testing negative # Heme: EBL 250 mL. No symptoms acute blood loss anemia. # CV/Pulm: Vital signs stable, within normal limits. # GI/: Tolerating PO. Voiding spontaneously. # Pain: Controlled with above regimen. # Post DVT prophylaxis: The patient has the following MAJOR risk factors none and the following MINOR risk factors parity >/=3. SCDs ordered for VTE prophylaxis. # MOC: Depo-provera # MOF: Formula feeding # Disposition: Follow up to be scheduled with primary OB. Continue routine care. Encounters Date Type Department Care Team Description 07/18/2024 8:30 AM CDT Office Visit [facility] [id number] [place] [phone] Niranjan Snider II, MD Syncope, unspecified syncope type (Primary Dx); Seizures, generalized convulsive (HCC); Chronic migraine with aura, intractable, without status migrainosus 06/20/2024 8:00 AM GEARMAN Office Visit [facility] [address] [phone] Blaze Nicolas MD Hyperlipidemia LDL goal <100 (Primary Dx); Syncope and collapse; Chest pain, unspecified type from Last 3 Months Immunizations Immunization Administration Dates Next Due Influenza, Quadrivalent, Spl it, Preservative Free, Intramuscular 07/24/2020(Deferred: No longer needed),02/20/2017 MMR 07/24/2020(Deferred: No longer n eeded) Surgical History Surgery Date Site/Laterality Comments FRACTURE SURGERY Right Elbow Medical History Medical History Date Comments Anxiety Mental disorder anxiety, no meds Hypertension Seizures (HCC) depression Syncope Shortness of breath Diabetes mellitus (HCC) Family History Medical History Relation Name Comments Diabetes Father hypoglycemia Mother Relation Name Status Comments Father Alive Mother Alive Social History Tobacco Use Types Packs/Day Years Used Date Smoking Tobacco: Never Smokeless Tobacco: Never Tobacco Cessation:Counseling Given: Not Answered Alcohol Use Standard Drinks/Week Comments Not Currently 0 (1 standard drink = 0.6 oz pur e alcohol) [facility] Utilities Answer Date Recorded In the past 12 months has e electric, gas, oil, or water Kites threatened to shut off services in your home? No 05/14/2023 Humiliation, Afraid, Rape, and Kick questionnair e Answer Date Recorded Within the last year, have y ou been afraid of your partner or ex-partner? No 05/14/2023 Within the last year, have y ou been humiliated or emotionally abused in other ways by your partner or ex-partner? No Within the last year, have y ou been kicked, hit, slapped, or otherwise physically hurt by your partner or ex-partner? No 05/14/2023 Within the last year, have y ou been raped or forced to have any kind of sexual activity by your partner or ex-partner? No 05/14/2023 Social Connection and Isolat ion Panel [NHANES] Answer Date Recorded In a typical week, how many times do you talk on the phone with family, friends, or neighbors? More than three times a week 02/18/2024 How often do you get togethe r with friends or relatives? More than three times a week 02/18/2024 How often do you attend chur ch or yazdanism services? Never 02/18/2024 Do you belong to any clubs o r organizations such as orthodoxy groups, unions, fraternal or athletic groups, or school groups? No 02/18/2024 How often do you attend meet ings of the clubs or organizations you belong to? Never 02/18/2024 Are you , , di vorced, , never , or living with a partner? Living with partner 02/18/2024 AUDIT-C Answer Date Recorded Q1: How often do you have a drink containing alcohol? Never 02/18/2024 Q2: How many drinks containi ng alcohol do you have on a typical day when you are drinking? Patient does not drink Q3: How often do you have si x or more drinks on one occasion? Never 02/18/2024 Overall Financial Resource Strain (CARDIA) Answe r Date Recorded How hard is it for you to pa y for the very basics like food, housing, medical care, and heating? Not hard at all 02/18/2024 PHQ-2 Answer Date Recorded PHQ-2 Total Score (If total score is 3 or more points, staff should administer the PHQ-9) 0 02/18/2024 [facility] - Occupational Stress Questionnaire Answer Date Recorded Do you feel stress - tense, restless, nervous, or anxious, or unable to sleep at night because your mind is troubled all the time - these days? Rather much 02/18/2024 Exercise Vital Sign Answer Date Recorde d On average, how many days pe r week do you engage in moderate to strenuous exercise (like a brisk walk)? 7 days 05/14/2023 On average, how many minutes do you engage in exercise at this level? 60 min 05/14/2023 Hunger Vital Sign Answer Date Recorded Within the past 12 months, y ou worried that your food would run out before you got the money to buy more. Never true 02/18/20 24 Within the past 12 months, t he food you bought just didn't last and you didn't have money to get more. Never true 02/18/2024 PRAPARE - Transportation Answer Date Re corded In the past 12 months, has l ack of transportation kept you from medical appointments or from getting medications? No 02/08 In the past 12 months, has l ack of transportation kept you from meetings, work, or from getting things needed for daily living? No 02/18/2024 Housing Stability Vital Sign Answer Maximo e Recorded In the last 12 months, was t here a time when you were not able to pay the mortgage or rent on time? No 05/14/2023 In the last 12 months, how many places have you lived? 2 05/14/2023 In the last 12 months, was t here a time when you did not have a steady place to sleep or slept in a half-way (including now)? No 05/14/2023 Housing Stability Vital Sign Answer Maximo e Recorded In the last 12 months, was t here a time when you were not able to pay the mortgage or rent on time? No 02/18/2024 In the past 12 months, how m any times have you moved where you were living? 1 02/18/2024 At any time in the past 12 m onths, were you homeless or living in a half-way (including now)? No 02/18/2024 Personal Safety Answer Date Recorded Have you ever been in or are you currently in a harmful physical or emotional relationship or is someone making you feel afraid or unsafe? Denies 02/18/2024 Education Answer Date Recorded What is the highest level of school you have completed or the highest degree you have received? Some college, no degree 05/14/2023 Comments No Sex and Gender Information Value Date Recorded Sex Assigned at Not on file Legal Sex Female 1:09 PM GEARMAN Gender Identity Female 03/22/2022 7:45 AM GEARMAN Sexual Orientation Straight 03/22/2022 7: 45 AM GEARMAN Obstetrics History Para Term AB IAB SAB Ectopic Multiple Livin g Live Births 7 4 3 1 2 0 2 0 0 4 4 Date Outcome GA Total Labor Labor/2nd/3rd Weight Sex Type Anes PTL Danita A1 A5 Name Clin 2016 Term 3.856 kg (8 lb 8 oz) F Vag-S pont Epidur al Y Livin g Complications:None 7 SAB SAB 2019 Term 3.6 kg (7 lb 15 oz) M Vag-S pont Epidur al Y Livin g Complications:None 2020 Term 37w 5d 0h 04m 0h 01m/0h 03m 3.21 kg (7 lb 1.2 oz) F Vag-S pont Epidur al N Livin g 8 9 BROWN ,GIRL CHEYE CHALINOE Rudy scott, William John sa, MD Complications:None Delivery Location:[facility] Main C ampus ([facility] 58LD) 2021 35w 1d 0h 08m 0h 01m/0h 07m 2.49 kg (5 lb 7.8 oz) M Vag-S pont Epidur al Y Livin g 8 9 IRAJ MCKEON Matthe w John, MD Complications:Premature Rupt ure of Membranes,Rupture of Membranes > 18 hours Delivery Location:[facility] Main C ampus ([facility] 58LD) 4 SAB SAB Last Filed Vital Signs Vital Sign Reading Time Taken Comments Blood Pressure 104/60 07/18/2024 8:38 AM CDT Pulse 117 07/18/2024 8:38 AM CDT Temperature 36.9 C (98.4 F) 11/13/2023 6:57 PM CDT Respiratory Rate 17 07/18/2024 8:38 AM CDT Oxygen Saturation 99% 07/18/2024 8:38 AM CDT Inhaled Oxygen Concentration - - Weight 45.5 kg (100 lb 3.2 oz) 07/18/2024 8:38 A M CDT Height 157.5 cm (5' 2) 07/18/2024 8:38 AM CDT Body Mass Index 18.33 07/18/2024 8:38 AM CDT Plan of Treatment Health Maintenance Due Date Last Done Comments Regular Well Visit/Exam 18-64 2015 Cervical Cancer Screening 02/23/2021 02/24/2020 Influenza Vaccine (#1) 2024 7, 02/13/2016, 01/21/2013, Additional history exists Depression Screening 01/28/2025 01/29/2024, 11/13/2023, 05/14/2023 DTaP/Tdap/Td Vaccine (7 - Td or Tdap) 01/16/2027 01/16/2017, 12/26/2009, 12/15/2002, Additional history exists Hepatitis B Screening Completed 10/19/1999 , 02/06/1998, 1997 Pneumococcal vaccine <65 Completed 11/26/2000 Varicella Vaccines Completed 12/26/2009, 01/21/2000 HPV Vaccines Completed 02/13/2016, 01/09, 12/26/2009 Hepatitis C Screening Completed 07/22/2020 Procedures Procedure Name Priority Date/Time Associated Diagnosis Comments HEPATITIS C ANTIBODY Routine 07/22/2020 6:00 PM CDT PAP AND HIGH RISK HPV, REFLEX TO GENOTYPING Routine 02/24/2020 7:00 PM CDT from Last 3 Months or Most Recently Relevant to Health Maintenance Results * Hepatitis C antibody (07/22/2020 6:00 PM CDT) Hep C Ab Nonreactive Nonreactive KAYLA [facility] Comment:Antibodies to HCV no t detected. Does NOT exclude the possibility of recent exposure to HCV. Blood specimen (specimen) 07/22/2020 6:00 PM CDT 07/22/2020 6:28 PM CDT Dre Ochoa MD LAB MICROBIO LOGY - GENERAL ORDERABLES Edited Result - Final [facility] Department [place] [address] * Pap and High Risk HPV, reflex to Genotyping (02/24/2020 7:00 PM CDT) 02/24/2020 7:00 PM CDT 02/27/2020 2:21 AM CDT Narrative 03/02/2020 10:29 AM CDT EPIC results best viewed via link to PDF [facility] [place] [address] CYTOPATHOLOGY REPORT FINAL WITH ADDENDUM Patient Name: RADHA MCKEON Gender: Dejan : 1995 (Age: 24) Address: [place] [address] Hospital #: [id number] Service: Obstetrics Location: [facility] Patient Type: [facility] OP In Bed Taken: 02/24/2020 Received: 02/27/2020 Accessioned: 02/27/2020 Reported: 03/02/2020 Physician(s): Becki Dubon M.D. FINAL INTERPRETATION SOURCE OF SPECIMEN: Liquid based Thin Prep pap with HPV STATEMENT OF ADEQUACY: - Satisfactory for evaluation - Endocervical cells/transformation zone sample absent GENERAL CATEGORY: - Negative for squamous intraepithelial lesion or malignancy DESCRIPTION: - Organisms morphologically consistent with trichomonas vaginalis present - Reactive cellular changes associated with inflammation Comments HPV results will be issued as an addendum. [facility]/03/01/2020 15:25 By this signature, I attest that the above diagnosis is based upon my personal examination of the slides(and/or other material indicated in the diagnosis). Mayo Stewart DO Report Electronically Reviewed and Signed Out By Mayo Stewart DO 03/02/2020 10:29:55 JUAN LUIS Chawla(ASCP) Cervicovaginal Cytology (Pap Test) Disclaimer: The Pap test is a screening test used to detect cervical cancer and its precursors; it is not a diagnostic procedure. False negative and false positive results do occur. Pap test results should be interpreted in the context of pertinent clinical information and biopsy results as indicated. Gross Description A. Liquid based Thin Prep pap with HPV: 2 Cervical/vaginal - Screening ThinPrep-With HPV Clinical Diagnosis and History Last Menstrual Period: Not Provided. The patient is a 24 year old woman with at 17 weeks. Addenda Addendum Ordered: 03/08/2020 Status: Signed Out Addendum Complete: 03/08/2020 By: Mayo Stewart DO Addendum Signed Out: 03/08/2020 Addendum Comment HPV Result: NEGATIVE for high risk types of Human Papilloma Virus (HPV) RNA This probe detects the presence of HPV types: 16, 18, 31, 33, 35, 39, 45, 51, 52, 56, 58, 59, 66 and 68. This HPV test was performed at [facility] in [place], [place] utilizing the Gen-Probe Aptima assay. By this signature, I attest that the above diagnosis is based upon my personal examination of the slides(and/or other material indicated in the diagnosis). Mayo Stewart DO Report Electronically Reviewed and Signed Out By Mayo Stewart DO 03/08/2020 08:53:49 The HPV test was performed by [facility], [address] [place], [place] [id number]. Report Images and scanned documents, if included only viewable in PDF version The performance characteristics of some immunohistochemical stains, in-situ hybridization and fluorescence in-situ hybridization tests and immunophenotyping by flow cytometry cited in this report (if any) were determined by the Surgical Pathology Department at [facility] as part of an ongoing vice president quality program and in compliance with federally mandated regulations drawn from the Clinical Laboratory Improvement Act of 1988 (CLIA '88). Some of these tests rely on the use of analyte specific reagents and are subject to specific labeling requirements by the US Food and Drug Administration. Such diagnostic tests may only be performed in a facility that is certified by the Department of Health and Human Services as a high complexity laboratory under CLIA '88. The FDA has determined that such clearance or approval is not necessary. This test is used for clinical purposes. It should not be regarded as investigational or for research. Nevertheless, federal rules concerning the medical use of analyte specific reagents require that the following disclaimer be attached to the report: This test was developed and its performance characteristics determined by the Surgical Pathology Department of [facility]. It has not been cleared or approved by the U. S. Food and Drug Administration. Becki Dubon MD LAB CYTOLOGY ORDERABLES Final Result from Last 3 Months or Most Recently Relevant to Health Maintenance [place] [address] [facility] Advance Directives For more information, please contact: [phone] * Full Code (Latest Code Status on File) Date Activated Date Inactivated Comments 2023 4:04 PM 05/14/2023 9:14 PM * Full Code Date Activated Date Inactivated Comments 01/19/2022 12:00 AM 01/20/2022 5:29 PM * Full Code Date Activated Date Inactivated Comments 01/17/2022 10:34 PM 01/19/2022 12:00 AM Full CPR in case of cardiopulmonary arrest * Full Code Date Activated Date Inactivated Comments 07/10/2021 9:36 PM 07/11/2021 8:22 PM * Full Code Date Activated Date Inactivated Comments 07/22/2020 7:22 PM 07/24/2020 10:47 PM Care Teams Manager Pricing Relationship Specialty Start Date End Date Ernesto Summers MD [address] [place] [address] PCP - General Obstetrics and Gynecology 01/27/24
--- OUTSIDE RECORDS SUMMARY | 2024-07-29 14:49 | XMS_ITS ---
Author Organization [facility] Address [address] [place] [address] Care Team Providers Care Manager Public Name Role Phone Jessi Cowan Primary Care Provider [phone] Allergies Allergen (clinical drug ingredient) Drug/Non Drug Allergy documented on EMR Reaction Allergy Type Onset Date Status Green Peppers (uncoded) Unknown Allergy Active REASON FOR VISIT update patient chart Medications Medication SIG (Take, Route, Frequency, Duration) Notes Start Date End Date Status Latuda 20 MG 1 tablet in the even ing with food Orally Once a day Active Adult Gummy/DHA/FA 0.4-25 MG as directed Orally Active Strattera 40 MG 1 capsule in the mor michael Orally Once a day Active Melatonin 5 MG 1 tablet in the even ing Orally Once a day Active Vitamin B 12 500 MCG 1 tablet Orally Once a day Active Social History Sex Assigned At : Social History Observation Description Sex Assigned At Female Encounters Encounter Location Date Provider Diagnosis [address] [phone] 07/22/2024 Jessi Cowan Plan Of Treatment Next Appt Details Provider Name:Jessi Alvarez , 09/14/2024 09:00:00 AM, [address] [place], [phone], Progress Notes * Maryse MCKEONOB: 8 (29 yo F)Acc No.[id number]:07/22/2024 Patient: Radha HATHAWAY :1995 A ge:29 Y S ex:Female Address:[address] [place] [address], [phone] Subjective: * Chief Complaints: * U pdate patient chart * Medical History: * Surgical History: * Hospitalization/Major Diagno stic Procedure: * Social History: P rimary Social History: A lcohol Use A lcohol Use Frequency: N ever. I llicit Substance Usage I llicit Substance Usage: N o. * Medications: T akingMelatonin 5 MG Tablet 1 tablet in the evening Orally Once a day Vitamin B 12 500 MCG Tablet 1 tablet Orally Once a day Adult Gummy/DHA/FA 0.4-25 MG Tablet Chewable as directed Orally Strattera 40 MG Capsule 1 capsule in the morning Orally Once a day Latuda 20 MG Tablet 1 tablet in the evening with food Orally Once a day Taking Melatonin 5 MG Tablet 1 tablet in the evening Orally Once a day Taking Vitamin B 12 500 MCG Tablet 1 tablet Orally Once a day Taking Adult Gummy/DHA/FA 0.4-25 MG Tablet Chewable as directed Orally Taking Strattera 40 MG Capsule 1 capsule in the morning Orally Once a day Taking Latuda 20 MG Tablet 1 tablet in the evening with food Orally Once a day * Allergies: Wai Carrasco Objective: * Vitals: * Physical Examination: Assessment: Plan: * Treatment: * Procedure Codes: * true * Date: Generated for Corina Miles/Puneet on: 0 07/29/2024 02:48 PM CDT
--- OUTSIDE RECORDS SUMMARY | 2024-07-29 14:49 | XMS_ITS ---
Author Organization [facility] Address [address] [place] [address] Care Team Providers Care Watch Crystal Grinder Name Role Phone Jessi Cowan Primary Care Provider Allergies Allergen (clinical drug ingredient) Drug/Non Drug Allergy documented on EMR Reaction Allergy Type Onset Date Status Green Peppers (uncoded) Unknown Allergy Active REASON FOR VISIT follow-up Medications Medication SIG (Take, Route, Frequency, Duration) [...] Problem Status W/U Status Risk Notes Problem Attention deficit hyperactivity disorder (565876215) ADHD (attention deficit hyperactivity disorder), combined type (F90.2) Active confirmed Problem Anxiety disorder (670833297) Anxiety disorder (F41.9) Active confirmed Problem Mood disorder (01426756) Mood disorder (F39) Active confirmed Vital Signs Weight 104 lbs 07/27/2024 Height 61 in 07/27/2024 BMI 19.65 kg/m2 07/27/2024 Blood pressure systolic 118 mm Hg 07/28/19 25 Blood pressure diastolic 72 mm Hg 025 Heart Rate 112 /min 07/27/2024 Oximetry 98 % 07/27/2024 Temperature 98.0 degrees Fahrenheit 07/28/19 25 Respiratory Rate 16 /min 07/27/2024 Encounters Encounter Location Date Provider Diagnosis [facility] [address] [place] [address] 07/27/2024 Jessi Cowan ADHD (attention deficit hyperactivity disorder), combined type F90.2 ; Anxiety disorder F41.9 and Mood disorder F39 Assessments Encounter Date Diagnosis (ICD Code) Assessment Notes Treatment Notes Treatment Clinical Notes Section Notes 07/27/2024 ADHD (attention deficit hyperactivity disorder), combined type (ICD-10 - F90.2) No changes- may want to increase Strattera in the future when her stressors have resolved. Written RX given 07/27/2024 Anxiety disorder (ICD-10 - F41.9) Pt didnt want to make changes today. Cont current meds Encouraged pt to nut picker her Lurasidone Please mx for signs and [...] visit Cont current meds- encouraged pt to nut picker lurasidone anastasia Pt voiced understanding 07/27/2024 Other F/U in 2 months Plan Of Treatment Treatment Notes Assessment Notes ADHD (attention deficit hype ractivity disorder), combined type No changes- may want to increase Strattera in the future when her stressors have resolved. Written RX given Anxiety disorder Pt didnt want to make changes today. Cont current meds Encouraged pt to nut picker her Lurasidone Please mx for signs and symptoms of : Neuroleptic malignant syndrome (NMS) is a rare and life-threatening reaction to the use of any antipsychotic medications.Symptoms of NMS include but not limited to:High [...] to avoid triggers and reduce anxious states Mood disorder Needs AIMS at future visit Cont current meds- encouraged pt to nut picker lurasidone anastasia Pt voiced understanding Other F/U in 2 months Next Appt Details Follow Up: 2 Months, Reason: Provider Name:Jessi Alvarez , 09/14/2024 09:00:00 AM, [address] [place] [address], [phone], Progress Notes * Maryse MCKEONOB: 8 (29 yo F)Acc No.[id number]:07/27/2024 Patient: Mary Kay MKAtul Radha Provider: SHOAIB Flower :1995 A ge:29 Y S ex:Female Date:07/27/2024 Address:[address] [place], [place] [id number] Subjective: * Chief Complaints: * F ollow-up * HPI: D epression Screening: PHQ-9 L ittle interest or pleasure in doing things N ot at all, F eeling down, depressed, or hopeless N ot at all, T rouble falling or staying asleep, or sleeping too much M ore than half the days, F eeling tired or having little energy N early every day, P oor appetite or overeating N ot at all, F eeling bad about yourself or that you are a failure, or have let yourself or your family down N early every day, Trouble concentrating on things, such as reading the newspaper or watching television N early every day, M oving or speaking so slowly that other people could have noticed; or the opposite, being so fidgety or restless that you have been moving around a lot more than usual S everal days, T houghts that you would be better off or of hurting yourself in some way N ot at all, T otal Score 1 2, I nterpretation M oderate Depression. I ntervention D epression Screening Findings P ositive, F ollow-Up for Depression N o Referral necessary, patient involved in behavioral health treatment .. S creening: [place] Suicide Severity Rating Scale (LF) D o you want to initiate with S creener form, 1 . Wish to be : Have you wished you were or wished you could go to sleep and not wake up? N o, 2 . Suicidal Thoughts: Have you actually had any thoughts of killing yourself? N o, 6 . Suicide Behavior Question: Have you ever done anything,started to do anything, or prepared to end your life? N o, I nterpretation: L ow Risk. C SSRS Interpretation and Follow Up Plan: CSSRS Interpretation and Follow Up Plan C SSRS Screen documented using SF Y es, R isk Disposition from L ow - No Follow Up Plan Required, F ollow Up Plan N o Follow Up Plan required at this time.. S ummary: HPI:(Location, Quality, Severity, Duration, Timing, Content, Modifying Factors, Associated Signs & Symptoms) EDSON and ADHD. Pt here today. She reports being tired. No trouble falling asleep ,but staying asleep is difficult. She thinks it is from not having her lurasidone. N eeds to nut picker luradisone. Corin has been out and has started seeing Ilana. She is hoping to get her appts changed to earlier am appt as this will give her less anxiety about missing her appt. Has been looking for new homes. She is running out of time. The kids are okay,but Odilia is struggling. Got her psychological report. Rec DBT, therapy groups s ome other therapy. She feels like she doesnt feel a diff with the Straterra but notices a diff when she doesnt take it. Still struggles with focuc and concentration. She reports there is alot going on. Her brain can't slow down. Anxiety is off the charts lately She thinks her symptoms will improve once some of her life stressors are less. There is a potential house that she has her eye on that can accomodate her family. She did see cardio- has been watching her heart rate and b/p. Will f/u in a couple of months 08/10 she will have a MRI and EEG with her neuro. She reports that he doesn't think she is having actual seizures. She is now on Nortriptyline per raine. She is on 25mg once daily and in 1 week she will increase to 50mg once daily. Has been on for 1 week already. This was prescried for migraines. He was aware of her mental health meds. Trying to be aware of herself to think more positive. It has helped a little bit. Pt denies sad, helpless,a/v hallucinations, delusions, agitation, irritability, insomnia, psychosis, karrie, medication side effects, abnormal movements, SI/HI. Has court coming up in August. * ROS: B asic ROS: Denies C hills. D enies C hange in appetite. D enies S weats. I nsomnia A dmits. D enies B reathing Problems. * Medical History: * Surgical History: r ight elbow surgery * Hospitalization/Major Diagno stic Procedure: p assing out migraines miscarriage * Family History: F ather: alive. M other: alive. 1 brother(s) , 2 sister(s) . 2 son(s) , 3 daughter(s) - healthy. . * Social History: P rimary Social History: L iving Arrangement L iving Arrangement: I ndependent Living, I s this a supportive environment? Y es. A lcohol Use A lcohol Use Frequency: N ever. I llicit Substance Usage I llicit Substance Usage: N o. 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 S margareth Question Alcohol Screening H ow may times in the past year have you had (4 for women, or 5 for men) or more drinks in a day? 0 . T obacco Use: T obacco Control (Standard) T obacco use: N onsmoker. * Medications: T akingNortriptyline HCl 25 MG Capsule 1 capsule at bedtime Orally Once a day after 1 week take 2 tabs, Notes to Pharmacist: Neuro prescribesMelatonin 5 MG Tablet 1 tablet in the evening Orally Once a day Vitamin B 12 500 MCG Tablet 1 tablet Orally Once a day Adult Gummy/DHA/FA 0.4-25 MG Tablet Chewable as directed Orally Strattera 40 MG Capsule 1 capsule in the morning Orally Once a day Latuda 20 MG Tablet 1 tablet in the evening with food Orally Once a day Taking Nortriptyline HCl 25 MG Capsule 1 capsule at bedtime Orally Once a day after 1 week take 2 tabs, Notes to Pharmacist: Neuro prescribesTaking Melatonin 5 MG Tablet 1 tablet in [...] Orally Once a day * Allergies: Wai Aguilera[Allergies Verified] Objective: * Vitals: I nitials: sw, Wt:104, Ht: 61, BMI:19.65, BP:118/72, HR:112, Oxygen sat %:98, Temp:98.0, RR:16, LMP: 06/2024, Pain scale:3. * Examination: M ental Status Exam: SENSORIUM AND COGNITION A lert. ATTENTION AND CONCENTRATION N o deficits. APPEARANCE A ppropriate, Neatly dressed and groomed, Appears stated age. ATTITUDE AND BEHAVIOR C ooperative, Positive, Pleasant.? MEMORY G rossly intact. EYE CONTACT G ood. AFFECT A nxious, Congruent with reported mood. MOOD W orried. SPEECH QUANTITY A ppropriate. THOUGHT PROCESS L oose associations. THOUGHT CONTENT P reoccupied. LANGUAGE R epetition. MOTOR ACTIVITY O ther (specify):wheel chair dependent. SUICIDAL IDEATION D enies suicidal ideation. HOMICIDAL IDEATION D enies homicidal ideation. ? Assessment: * Assessment: 1. A DHD (attention deficit hyperactivity disorder), combined type - F90.2 (Primary) 2 . A nxiety disorder - F41.9 3 . M ood disorder - F39 ? Plan: * Treatment: 2. A nxiety disorder Notes: Pt didnt want to make changes today. Cont current meds Encouraged pt to nut picker her Lurasidone Please mx for signs and symptoms of : Neuroleptic malignant syndrome (NMS) is arare and life-threatening reaction to the use of any antipsychoticmedications.Symptoms of NMS include but not limited to:High fever (hyperthermia),Stiff, rigid muscles that can lead to eventual muscle breakdown, AMS, bloodpressure changes, excessive sweating and excessive secretion of saliva.NMS ispotentially life-threatening and requires immediate medical attention in ahospital setting. If this condition is suspected please seek emergent medicalattention. Pt receptive Pt aware to call 911 and or [phone] if having thoughts of suicide plan or intentor having homicidal ideations. Pt voiced understanding. Discussed anxiety and ways to avoid triggers and reduceanxious states 3. M ood disorder Notes: Needs AIMS at future visit Cont current meds- encouraged pt to nut picker lurasidone anastasia Pt voiced understanding 4. O thers Notes: F/U in 2 months * Procedure Codes: * Follow Up: 2 Months * * Sign off status: Completed true * [facility]: [facility]24 Generated for Corina jacobsen/Tj/Puneet on: 0 07/29/2024 02:48 PM CDT History and Physical Notes * HPI (History of Present Illness) Category Sub-Category Detail Notes Category Not es Depression Screening PHQ-9 Little inte rest or pleasure in doing things: Not at all Feeling down, depressed, or hopeless: No t at all Trouble falling or staying a sleep, or sleeping too much: More than half the days Feeling tired or having little energy: N early every day Poor appetite or overeating: Not at all Feeling bad about yourself o r that you are a failure, or have let yourself or your family down: Nearly every day Trouble concentrating on thi ngs, such as reading the newspaper or watching television: Nearly every day Moving or speaking so slowly that other people could have noticed; or the opposite, being so fidgety or restless that you have been moving around a lot more than usual: Several days Thoughts that you would be b joshua off or of hurting yourself in some way: Not at all Total Score: 12 Interpretation: Moderate Depression Intervention Depression Screening Findings: P ositive Follow-Up for Depression: No Referral necessary, patient involved in behavioral health treatment . Screening [place] Suicide Sev erity Rating Scale (LF) Do you want to initiate with: Screener form 1. Wish to be : Have you wished you were or wished you could go to sleep and not wake up?: No 2. Suicidal Thoughts: Have you actually had any thoughts of killing yourself?: No 6. Suicide Behavior Question: Have you ever done anything,started to do anything, or prepared to end your life?: No Interpretation:: Low Risk CSSRS Interpretation and Follow Up Plan CSSRS Interpretation and Follow Up Plan CSSRS Screen documented using SF: Yes Risk Disposition from SF: Low - No Follo w Up Plan Required Follow Up Plan: No Follow Up Plan requir ed at this time. Examination Category Sub-Category Detail Notes Category Not es Mental Status Exam SENSORIUM AND COGNITION Alert ATTENTION AND CONCENTRATION No deficits APPEARANCE Appropriate, Neatly dressed and groomed, Appears stated age ATTITUDE AND BEHAVIOR Cooperative, Posit scarlett, Pleasant MEMORY Grossly intact EYE CONTACT Good AFFECT Anxious, Congruent w ith reported mood MOOD Worried SPEECH QUANTITY Appropriate THOUGHT PROCESS Loose associations THOUGHT CONTENT Preoccupied MOTOR ACTIVITY Other (specify):whee l chair dependent SUICIDAL IDEATION Denies suicidal idea tion HOMICIDAL IDEATION Denies homicidal samina ation LANGUAGE Repetition
--- OUTSIDE RECORDS SUMMARY | 2024-07-29 14:49 | XMS_ITS ---
Author Organization [facility] Address [address] [place] [address] Care Team Providers Care Pulp Drier Name Role Phone Jessi Cowan Primary Care Provider REASON FOR VISIT update patient chart Social History Sex Assigned At : Social History Observation Description Sex Assigned At Female Encounters Encounter Location Date Provider Diagnosis [address] [address] 07/25/2024 Jessi Cowan Plan Of Treatment Next Appt Details Provider Name:Jessi Alvarez , 09/14/2024 09:00:00 AM, [address], [place], [address], Progress Notes * ANDRE MaryseOB: 8 (29 yo F)Acc No.[id number]:07/25/2024 Patient: Radha HATHAWAY :1995 A ge:29 Y S ex:Female Address:[address] [place] [address], [phone] Subjective: * Chief Complaints: * U pdate patient chart * HPI: S ummary: HPI: 06/15/24 (Location, Quality, Severity, Duration, Timing, Content, Modifying Factors, Associated Signs & Symptoms) EDSON and ADHD. Last visit started Starttera 40mg i po QD #30.Just got Strattera finally after fighting with the pharmacy. Started taking at night and thinks it is keeping her awake. Will start taking in the morning. Hasn't really needed melatonin. Sleep problems just started with the strattera. She will change the strattera time to in the am. Takes Latuda at night. Has side effects like feeling shakey during the day. Doesn't have a great appetite. Kind of gaggy with some foods but they are foods she doesnt normally like and is low on food funds at this time. She thinks is situational. Does eat with her Latuda. She has to move due to the space heaters per credit collections analyst at court. She feels like she is rushing to find a house. She cant have two of her kids overnight due to the space heater. Still haven't got her psychological test results yet. She got kind of screwed on her hours at work. Works with the elderly. Goes to see neuro in July for seizure disorder. No seizures more passing out. Has little interest and pleasure, down, depressed, hopless ( DCF case) Pt denies sad, helpless,a/v hallucinations, delusions, agitation, irritability, insomnia, psychosis, karrie, medication side effects, abnormal movements, SI/HI. Will see cardio soon. * Medical History: * Surgical History: * Hospitalization/Major Diagno stic Procedure: * Medications: Objective: * Vitals: * Physical Examination: Assessment: Plan: * Treatment: * Procedure Codes: * true * Date: Generated for Corina jacobsen/Tj/Chasidysmitting on: 0 07/29/2024 02:48 PM CDT
--- OUTSIDE RECORDS SUMMARY | 2024-07-29 14:49 | XMS_ITS | Continuity of Care Document ---
Author Organization [facility] Address [address] [place] [address] Care Team Providers Care Steel Molder Name Role Phone JAECharlesVANNAEMILIA Primary Care Provider Assessment No assessment recorded. Plan of Treatment Reminders Order Date Submit Date Provider Last Modified By Organization Details Last Modified Time Details Appointments U/S OB DATING/ VIABILI TY 2024 01:00P M ULTRASOUND Not available Not available Not available FOLLOW UP 2024 02:00P Hans ESCOTO MD Not available Not available Not available FOLLOW UP 2024 02:45P M Mike ESCOTO MD Not available Not available Not available U/S OB SNEAK PEAK 2024 02:30P M ULTRASOUND Not available Not available Not available OB SCREEN 2024 03:00P Hans ESCOTO MD Not available Not available Not available Lab None recorde d. Referral None recorde d. Procedures None recorde d. Surgeries None recorde d. Imaging US, obstetr ic, transva ginal 2024 025 [email or web address], [address], [place], [address], 07/29/2024 14:55:53 Medication Orders None recorde d. Patient TargetsNo targets recorded. Patient InstructionsNo instructions recorded. Reason for Referral None Reported. Results Created Date Observation Date Name Description Value Unit Range Abnormal Flag Note LastModifiedBy Organization Detail LastModifiedTime 07/30/19 25 07/29/2024 imagi ng/di agnos tic resul t No observ ation record ed. [id number], [place], [address], 07/29/2024 14:30:29 07/30/19 25 US, obste tric, trans vagin al No observ ation record ed. [facility] [address], [place], [address], 07/29/2024 14:51:10 Result Notes None recorded. Problems Name Problem SNOMED Code Status Onset Date Resolution Date Notes Provider Name and Address Organization Details Recorded Time Mood disorder 31240043 Active 2023 Adelaida Decker [facility], [facility] 4 15:21:19 Mixed anxiety and depressi ve disorder 019632452 Active 2023 Adelaida Decker [facility], [facility] 4 15:21:34 Pregnanc y 26211050 Completed 202303/04/2024 Licha Martinez [facility], [facility] 4 13:00:45 Past pregnanc y history of gestatio nal diabetes mellitus 196536339 Completed Ernesto Escoto MD [address], [place], [address], [facility] 4 10:48:02 Prematur e delivery 809234627 Completed 34 weeks - last one Ernesto Escoto MD [address], [place], [address], [facility] 4 10:48:02 Grand multipar a 58850167 Completed Ernesto Escoto MD [address], [place], [address], [facility] 4 10:48:02 Placenta circumva llata 2836783 Completed Ernesto Escoto MD [address], [place], [address], [facility] 4 10:48:02 Hypotens scarlett episode 07340711 Completed multiple episodes - ambulanc e to hospital from work x 2 seen by cardiolo jaime Escoto MD [address], [place], [address], [facility] 4 10:47:31 Large for gestatio n age fetus 518765206 Completed 94th %tile Ernesto Escoto MD [address], [place], [address], [facility] 4 13:09:34 Anemia 165056844 Completed severe anemia - Iron infusion [facility] 17:51:17 Anemia 957802916 Active severe anemia - Iron infusion referral faxed 12/27 Jerrica max, [facility] 4 17:51:17 Gestatio nal diabetes mellitus 89375864 Completed 2023 BS QID - seeing MFM every 2 weeks r/t LGA Michelle Cai [facility], [facility] 4 10:41:20 Fallopia n tube excision Completed Ernesto Escoto MD [address], [place], [address], [facility] 4 10:46:26 Depressi ve disorder 20800405 Completed Ernesto Escoto MD [address], [place], [address], [facility] 4 10:46:05 Problem Notes None recorded. Procedures Surgical History Date Name Laterality Status Provider Name and Address Organization Details Recorded Time 07/23/19 24 Date of Last Pap Smear completed Adelaida Decker [facility] 07/23/2023 15:21:55 05/11/19 14 Date of Last Colonoscopy completed Adelaidasaritha Decker [facility] 07/23/2023 15:23:11 05/11/19 14 [facility]2023 15:29:00 05/11/19 12 procedure on elbow completed [facility] 07/23/2023 15:29:12 Imaging Results Imaging Date Name Status LastModified by Organiz ation Details LastModified Time 07/29/2024 US, obstetric, transvaginal active [facility] [address], [place], [address], 07/29/2024 14:51:10 Procedure Notes None recorded. Medical [...] Updated DateTime 07/29/2024 153.67 cm 19.6 kg/m2 40657.42 g 126 mm[Hg] 87 mm[Hg] Licha Martinez [facility] 14:56:54 Social History Question Answer Notes LastModified by Organizat ion Details LastModified Time Tobacco Smoking Status Never Smoker Adelaida max, [facility] 07/23/2023 15:28:26 What Is Your Level Of Alcohol Consumption? None [email or web address] Information not available 07/23/2023 If You Are , What Was Your Level Of Alcohol Consumption Prior To ? None [email or web address] Information not available 07/23/2023 Are You Blind Or Do You Have Difficulty Seeing? No [email or web address] Information n ot available 07/23/2023 What Is Your Level Of Caffeine Consumption? Moderate [email or web address] Information not available 07/23/2023 In The 14 Days Before Symptom Onset, Have You Had Close Contact With A Laboratory-confirm ed COVID-19 While That Case Was Ill? No [email or web address] Information n ot available 07/23/2023 In The 14 Days Before Symptom Onset, Have You Had Close Contact With A Person Who Is Under Investigation For COVID-19 While That Person Was Ill? No [email or web address] Information not available 07/23/2023 Have You Been To An Area Known To Be High Risk For COVID-19? No [email or web address] Information not available 07/23/2023 Are You Deaf Or Do You Have Serious Difficulty Hearing? No [email or web address] Information not available 07/23/2023 What Type Of Diet Are You Following? REGULAR [email or web address] Information n ot available 07/23/2023 Which Illicit Or Recreational Drugs Have You Used? Marijuana [email or web address] Information not available 07/23/2023 Do You Use Your Seat Belt Or Car Seat Routinely? Yes Information not available 07/23/2023 Are You Sexually Active? Yes [email or web address] Information not available 07/23/2023 Do You Have Smoke And Carbon Monoxide Detectors In Your Home? Yes Information not available 07/23/2023 Do You Feel Stressed (tense, Restless, Nervous, Or Anxious, Or Unable To Sleep At Night)? [id number] Information not available 07/23/2023 Do You Use Any Illicit Or Recreational Drugs? Yes [email or web address] Information not available 07/23/2023 Do You Use Sunscreen Routinely? Yes [email or web address] Information not available 07/23/2023 Have You Used IV Drugs? No [email or web address] Information not available 07/23/2023 Do You Or Have You Ever Used Any Other Forms Of Tobacco Or Nicotine? No Information not available 07/23/2023 Sex: Unknown Functional Status Question Answer Note LastModified by Organizat ion Details LastModified Time Do you have difficulty walking or climbing stairs? No [email or web address] Information not available 07/23/2023 Are you able to walk? YESWOREST gelblvad27 Information not available 07/23/2023 Are you able to care for yourself? Yes [email or web address] Information not available 07/23/2023 Do you have difficulty dressing or bathing? No [email or web address] Information not available 07/23/2023 What is your exercise level? Occasional Information not available 07/23/2023 Mental Status None recorded. Family History Relationship Description Onset Age of this Age Resolved Age Notes LastModified by Organization Details LastModified Time Paternal Uncle Malignant tumor of breast [email or web address] Not available 07/23 08:59:48 Maternal Aunt Malignant tumor of cervix [email or web address] Not available 07/23 08:59:57 Maternal Aunt Diabetes mellitus [email or web address] Not available 07/23 09:00:24 Maternal Aunt Cyst of ovary [email or web address] Not available 2023 12:17:11 Maternal Aunt Disorder of thyroid gland fzuabndk03 Not available 07/23 09:03:58 Maternal Aunt Endometriosi s (clinical) Not available 12:17:11 Mother Diabetes mellitus [email or web address] Not available 07/23 09:00:24 Paternal Grandmother Diabetes mellitus ojfbmgts78 Not available 07/23 09:00:24 Maternal Grandmother Diabetes mellitus ucmsvovl21 Not available 07/23 09:00:24 Maternal Grandmother Hypertensive disorder lmgnahnj74 Not available 07/23 09:02:01 Maternal Grandmother Malignant tumor of ovary [email or web address] Not available 07/23 09:02:55 Maternal Grandmother Cyst of ovary Not available 2023 12:17:11 Maternal Grandmother Endometriosi s (clinical) [email or web address] Not available 12:17:11 Father Hypercholest erolemia jvuemxiv52 Not available 07/23 09:00:37 Father Hypertensive disorder Not available 07/23 09:02:00 Paternal Grandfather Malignant tumor of lung [email or web address] Not available 07/23 09:02:37 Brother Autism spectrum disorder ovdozu26 Not available 2023 12:17:11 Brother Muscular dystrophy [email or web address] Not available 2023 12:17:11 Medical History Condition [...] Flow (days) 4 Current Control Method Breastfeedi ng/BRYANT Are cycles usually normal Y Date of [...] SNOMED-CT Code Diagnosis ICD10 Code Diagnosis Note [id number] Licha Martinez [facility] [address] [address] 07/19/2024 09:34:23 07/19/2024 15:21:50 Contraception care management 974283318 Z30.9 Hyperglycemia 13374367 R 73.9 Mood disorder 95498169 F 39 [id number] [facility] [address] [address] 07/29/2024 13:58:56 07/29/2024 14:55:53 Threatened miscarriage 54758237 O20.0 O26.891 Z3A.01 Health Concerns Section Related Observation LastModified by Organization Detai ls LastModified Time None Recorded Concern Status LastModified by Organization Details LastModified Time None Recorded Payers Encounter Date Sequence Insurance Name Policy Number Policy Handley Covered Member ID Handley Member ID Guarantor Name 07/29/2024 1 [facility] (MEDICAID HMO) [id number] Radha Mckeon [id number] Radha Mckeon OBGyn Episode No OBEpisode recorded.
--- OUTSIDE RECORDS SUMMARY | 2024-07-29 14:49 | XMS_ITS | Referral Summary ---
Author Organization [facility] Address [address] [place] [address] Care Team Providers Care Parachute Officer Name Role Phone Ernesto Summers MD Primary Care Provider [phone] Encounters Date Type Department Care Team Description 07/18/2024 8:30 AM CDT Office Visit [facility] [address] [place] [address] [address], [place] [address] Niranjan Snider II, MD Syncope, unspecified syncope type (Primary Dx); Seizures, generalized convulsive (HCC); Chronic migraine with aura, intractable, without status migrainosus 06/20/2024 8:00 AM VOCATIONAL EDUCATION TEACHER Office Visit [facility] [address] [facility] [address] [place] [address] Blaze Nicolas MD Hyperlipidemia LDL goal <100 (Primary Dx); Syncope and collapse; Chest pain, unspecified type from Last 3 Months Allergies No known active allergies Medications vit 29-pbqc-erubt-d thomas 27mg iron- 800 mcg-250 mg capsuleIndicati [...] # Disposition: Follow up task sent to [facility] scheduling pool. Desires discharge home today. premature [...] scheduled with primary OB. Continue routine care. Immunizations Immunization Administration Dates Next Due Influenza, Quadrivalent, Spl it, Preservative Free, Intramuscular 07/24/2020(Deferred: No longer needed),02/20/2017 MMR 07/24/2020(Deferred: No longer n eeded) Social History Tobacco Use Types Packs/Day Years Used Date Smoking Tobacco: Never Smokeless Tobacco: Never Tobacco Cessation:Counseling Given: Not Answered Alcohol Use Standard Drinks/Week Comments Not Currently 0 (1 standard drink = 0.6 oz pur e alcohol) [facility] Utilities Answer Date Recorded In the past 12 months has e electric, gas, oil, or water company threatened to shut off services in your [...] 02/18/2024 How often do you attend chur or mormonism services? Never 02/18/2024 Do you belong to any clubs o r organizations such as denominational groups, unions, fraternal or athletic groups, or [...] staff should administer the PHQ-9) 0 02/18/2024 [facility] Occupational Stress Questionnaire Answer Date Recorded [...] place to sleep or slept in a usp (including now)? No 05/14/2023 Housing Stability Vital Sign Answer Maximo e Recorded In the last 12 months, was t here a time when you were not able to pay the mortgage or rent on time? No 02/18/2024 In the past 12 months, how m any times have you moved where you were living? 1 02/18/2024 At any time in the past 12 m [facility], were you homeless or living in a usp (including now)? No 02/18/2024 Personal Safety Answer [...] on file Legal Sex Female 1:09 PM VOCATIONAL EDUCATION TEACHER Gender Identity Female 03/22/2022 7:45 AM VOCATIONAL EDUCATION TEACHER Sexual Orientation Straight 03/22/2022 7: 45 AM VOCATIONAL EDUCATION TEACHER Last Filed Vital Signs Vital Sign Reading [...] 07/18/2024 8:38 AM CDT Plan of Treatment Not on file Procedures Procedure Name Priority Date/Time Associated Diagnosis Comments HEPATITIS C ANTIBODY Routine 07/22/2020 6:00 PM CDT PAP AND HIGH RISK HPV, REFLEX TO GENOTYPING Routine 02/24/2020 7:00 PM CDT from Last 3 Months or Most Recently Relevant to Health Maintenance Results * Hepatitis C antibody (07/22/2020 6:00 PM CDT) Hep C Ab Nonreactive Nonreactive [facility] Comment:Antibodies to HCV no t detected. Does NOT exclude the possibility of recent exposure to HCV. Blood specimen (specimen) 07/22/2020 6:00 PM CDT 07/22/2020 6:28 PM CDT Dre Ochoa MD LAB MICROBIO LOGY - GENERAL ORDERABLES Edited Result - Final KAYLA [facility] Department [place] [address] * Pap and High Risk HPV, reflex to Genotyping (02/24/2020 7:00 PM CDT) 02/24/2020 7:00 PM CDT 02/27/2020 2:21 AM CDT Narrative 03/02/2020 10:29 AM CDT EPIC results best viewed via link to PDF [facility] [place] [address] CYTOPATHOLOGY REPORT FINAL WITH ADDENDUM Patient Name: RADHA MCKEON Gender: Dejan : 1995 (Age: 24) Address: [place] [address] Hospital #: [id number] Service: Obstetrics Location: [facility] Patient Type: [facility] OP In Bed Taken: 02/24/2020 Received: [...] results will be issued as an addendum. [facility]/03/01/2020 15:25 By this signature, I attest that [...] 70. This HPV test was performed at [facility] in [place], [place] utilizing the Gen-Probe Aptima assay. By this signature, I attest that the above diagnosis is based upon my personal examination of the slides(and/or other material indicated in the diagnosis). Mayo Stewart DO Report Electronically Reviewed and Signed Out By Mayo Stewart DO 03/08/2020 08:53:49 The HPV test was performed by [facility], [address] [place] [address]. Report Images and scanned documents, if included only viewable in PDF version The performance characteristics of some immunohistochemical stains, in-situ hybridization and fluorescence in-situ hybridization tests and immunophenotyping by flow cytometry cited in this report (if any) were determined by the Surgical Pathology Department at [facility] as part of an ongoing air quality specialist program and in compliance with federally mandated [...] determined by the Surgical Pathology Department of [facility]. It has not been cleared or approved by the U. S. Food and Drug Administration. Becki Dubon MD LAB CYTOLOGY ORDERABLES Final Result from Last 3 Months or Most Recently Relevant to Health Maintenance Insurance [facility] Advance Directives For more information, please contact: [phone] * Full Code (Latest Code Status on [...] 7:22 PM 07/24/2020 10:47 PM Care Teams Parachute Officer Relationship Specialty Start Date End Date Ernesto Summers MD [address] [place] [address] PCP - General Obstetrics and Gynecology 01/27/24
--- OUTSIDE RECORDS SUMMARY | 2024-07-29 14:49 | XMS_ITS | Encounter Summary ---
Author Organization [facility] Address [address] [facility] [address] [place] [address] Care Team Providers Care Lithographic Press Operator Name Role Phone Jimmie Robles MD Primary Care Provider [phone] Reason for Visit * Reason Onset Date Comments Results 05/31/2015 Encounter Details Date Type Department Care Team (Late st Contact Info) Description 05/31/2015 Telephone [facility] Pediatrics - GI [address] [place] [address]. [place] [address] Sri Seaman MD [address] [place] [phone] Results Social History Tobacco Use Types Packs/Day Years Used Date Smoking Tobacco: Passive Smo ke Exposure - Never Smoker Alcohol Use Standard Drinks/Week Comments No 0 (1 standard drink = 0.6 oz pur e alcohol) Sex and Gender Information Value Date Recorded Sex Assigned at Not on file Gender Identity Not on file Sexual Orientation Not on file documented as of this encounter Functional Status Functional Status Response Date of Assess ment Is person deaf or have serious hearing difficult y? No 05/21/2015 Is person blind or have serious difficulty seein g? No 05/21/2015 Does person have serious dif ficulty walking/climbing stairs? No 05/21/2015 Does person have difficulty dressing/bathing? No 05/21/2015 Does person have difficulty doing errands alone? No 05/21/2015 Cognitive Status Response Date of Assessm ent Does person have difficulty concentrating/remembering/making decisions? No 05/21/2015 documented as of this encounter Miscellaneous Notes * Telephone Encounter - Sri Seaman MD - 05/31/2015 10:34 AM MARINE CHRONOMETER ASSEMBLER Left message on cell phone to call back about biopsy results (home number not in service) Radha's biopsies were normal except for some very mild inflammation in her rectum (which could cause occasional bleeding). Would recommend continuing Miralax. Results are reassuring. NE CHRONOMETER ASSEMBLER documented in this encounter Plan of Treatment Not on file documented as of this encounter Visit Diagnoses Not on filedocumented in this encounter Care Teams Lithographic Press Operator Relationship Specialty Start Date End Date Jimmie Robles MD [address] [place] [address] PCP - General Pediatrics 02/22/14 documented as of this encounter
--- OUTSIDE RECORDS SUMMARY | 2024-07-29 14:49 | XMS_ITS | Encounter Summary ---
Author Organization [facility] Address [address] [place] [address] Care Team Providers Care Changeover Operator Name Role Phone Ernesto Summers MD Primary Care Provider [phone] Encounter Details Date Type Department Care Team (Late st Contact Info) Description 09/26/2021 Telephone [facility] Imaging and Radiology [address] [place] [phone] Maritza Gustafson RDMS Social History Tobacco Use Types Packs/Day Years Used Date Smoking Tobacco: Never Smokeless Tobacco: Never Alcohol Use Standard Drinks/Week Comments Not Currently 0 (1 standard drink = 0.6 oz pur e alcohol) Comments Yes Sex and Gender Information Value Date Recorded Sex Assigned at Not on file Legal Sex Female 1:09 PM WHISTLE PUNK Gender Identity Female 03/22/2022 7:45 AM WHISTLE PUNK Sexual Orientation Straight 03/22/2022 7: 45 AM WHISTLE PUNK documented as of this encounter Plan of Treatment Not on file documented as of this encounter Visit Diagnoses Not on filedocumented in this encounter Care Teams Changeover Operator Relationship Specialty Start Date End Date Ernesto Summers MD [address] [place], [place] [id number] PCP - General Obstetrics and Gynecology 01/27/24 documented as of this encounter
[2024-07-29 15:34] LABS: Beta HCG Quantitative 19.51 mIU/ML
[2024-07-30 10:23] LABS: Beta HCG Quantitative 13.88 mIU/ML
== END 2024-10-27 23:59 | disposition home or self-care (01) ==
LOC: ANHLAB 09:38
PROVIDERS: Visit Provider Obstetrics & Gynecology
DX: O20.0 Threatened abortion (principal); O26.891 Other specified pregnancy related conditions, first trimester; Z3A.01 Less than 8 weeks gestation of pregnancy
CPT/HCPCS: 36415; 84702

== ENCOUNTER 2024-08-04 10:57 | Outpatient (CLI) | payer OTHER, SELFPAY ==
[2024-08-04 11:50] LABS: Beta HCG Quantitative < 2.39 mIU/ML
--- OUTSIDE RECORDS SUMMARY | 2024-08-04 12:11 | XMS_ITS | Data Portability ---
Author Organization [facility] [place] Address [address] [place] [address] [place] [address] Care Team Providers Care Director Of Culture Name Role Phone EMILIA SALGADO Primary Care Provider Assessment No assessment recorded. Plan of Treatment Reminders Order Date Submit Date Provider Last Modified By Organization Details Last Modified Time Details Appointments Injecti on DEPO 2024 08:30A M RN SCHEDULE Not available Not available Not available U/S OB SNEAK PEAK 2024 02:30P M ULTRASOUND Not available Not available Not available OB SCREEN 2024 03:00P M Mike SUMMERS MD Not available Not available Not available Lab pregnan cy test, urine 2024 025 [email or web address] [place], [address], [place], [address], 08/01/2024 16:45:44 pregnan cy test, urine 2024 025 [email or web address] [place], [address], [place], [address], 07/29/2024 17:17:15 HbA1c (hemogl obin A1c), blood 2024 025 [facility] (Lab), [address], [place], [address], 07/20/2024 06:09:36 pregnan cy test, urine 2024 025 [email or web address] [place], [address], [place], [address], 07/19/2024 10:00:43 Referral None recorde d. Procedures None recorde d. Surgeries salping ectomy, laparos copic (SURG) 2023 025 [facility] [facility] [address], [address], [place], [address], 04/13/2024 14:57:39 Imaging US, obstetr ic, transva ginal 2024 025 [email or web address] [place], [address], [place], [address], 07/30/2024 12:14:32 Medication Orders Depo-Pr overa 150 mg/mL intramu scular syringe 2024 025 [place] [id number], [address], [id number], 08/01/2024 16:39:21 hydroco done 5 mg-acet aminoph en 325 mg tablet 2024 025 [place] [employer] [id number], [address], [place], [id number], 07/29/2024 15:11:02 Patient TargetsNo targets recorded. Patient InstructionsNo instructions recorded. Reason for Referral None Reported. Results Created Date Observation Date Name Description Value Unit Range Abnormal Flag Note LastModifiedBy Organization Detail LastModifiedTime 07/20/1907/19/2024 HEMOG LOBIN A1C hemoglobin A1C 5.0 % [...] brigida >=6.5 % Diagn ostic of diabe brigdia <7.0% Goal of thera py >8.0% Actio n sugge sted Not Available [facility] (Lab) [address], [place], [address], 07/20/2024 06:09:36 07/20/19 25 07/19/2024 pregn junior test, urine HCG positi ve Not Available [place] [address], [place], [address], 07/19/2024 09:50:17 07/30/19 25 07/29/2024 pregn junior test, urine HCG positi ve Not Available [place] [address], [place], [address], 07/29/2024 17:17:00 08/02/19 25 08/01/2024 pregn junior test, urine HCG positi ve Not Available [place] [address], [place], [address], 08/01/2024 16:45:30 02/26/20 24 02/26/2024 XR, abdom en + pelvi s No observ ation record ed. [address], [place], [address], 02/28/2024 20:31:54 07/30/19 25 07/29/2024 US, obste tric, 1st trime ster No observ ation record ed. [address], [facility], [place], [address], 07/31/2024 22:48:22 07/30/19 25 07/29/2024 US, obste tric, trans vagin al No observ ation record ed. [facility] [address], [place], [address], 07/29/2024 18:16:32 Result Notes None recorded. Problems Name Problem SNOMED Code Status Onset Date Resolution Date Notes Provider Name and Address Organization Details Recorded Time Mood disorder 41098084 Active 2023 Adelaida Brianne [facility], [facility] 4 15:21:19 Mixed anxiety and depressi ve disorder 491772029 Active 2023 Adelaida Brianne [facility], [facility] 4 15:21:34 Pregnanc y 62201202 Completed 202303/04/2024 Licha Martinez null, [facility] 4 13:00:45 Past pregnanc y history of gestatio nal diabetes mellitus 504318052 Completed Ernesto Summers MD [address], [place], [address], [facility] 4 10:48:02 Prematur e delivery 186530791 Completed 34 weeks - last one Ernesto Summers MD [address], [place], [address], [facility] 4 10:48:02 Grand multipar a 94951087 Completed Ernesto Summers MD [address], [place], [address], [facility] 4 10:48:02 Placenta circumva llata 7472483 Completed Ernesto Summers MD [address], [place], [address], [facility] 4 10:48:02 Hypotens scarlett episode 19640341 Completed multiple episodes - ambulanc e to hospital from work x 2 seen by cardiolo gy Ernesto Summers MD [address], [place], [address], [facility] 4 10:47:31 Large for gestatio n age fetus 744228579 Completed 94th %tillatesha Summers MD [address], [place], [address], [facility] 4 13:09:34 Anemia 114500225 Completed severe anemia - [facility] infusion [facility] 17:51:17 Anemia 292882868 Active severe anemia - Iron infusion referral faxed 12/27 Jerrica Dominguez [place], [facility] 4 17:51:17 Gestatio nal diabetes mellitus 89697879 Completed 2023 BS QID - seeing MFM every 2 weeks r/t LGA Michelle Cai [facility], [facility] 4 10:41:20 Fallopia n tube excision Completed Ernesto Summers MD [address], [place], [address], [facility] 4 10:46:26 Depressi ve disorder 31289120 Completed Ernesto Summers MD [address], [place], [address], [facility] 4 10:46:05 Problem Notes None recorded. Procedures Surgical History Date Name Laterality Status Provider Name and Address Organization Details Recorded Time 07/23/19 24 Date of Last Pap Smear completed Adelaida Decker [facility] 07/23/2023 15:21:55 05/11/19 14 Date of Last Colonoscopy completed Adelaida Decker [facility] 07/23/2023 15:23:11 05/11/19 14 Colonoscopy completed Adelaidasaritha Decker [facility] 07/23/2023 15:29:00 05/11/19 12 procedure on elbow completed Adelaidasaritha Decker [facility] 07/23/2023 15:29:12 Imaging Results Imaging Date Name Status LastModified by Organization Details LastModified Time 02/26/2024 XR, abdomen + pelvis completed [email or web address] [facility] [address], [place], [address], 02/28/2024 20:31:54 07/29/2024 US, obstetric, 1st trimester completed [email or web address] [address], [place], [address], 07/31/2024 22:48:22 07/29/2024 US, obstetric, transvaginal completed [facility] [address], [place], [address], 07/29/2024 18:16:32 Procedure Notes None recorded. Medical Equipment None Reported. Allergies No known drug allergies Medications Name Sig Start Date Stop Date Status Note LastModified by Organization Details LastModified Time quetiapine 25 mg tablet TAKE 1 TABLET BY MOUTH TWICE A DAY 07/22 completed Not Available Not Available Not Available hydrocodone 5 mg-acetamin ophen 325 mg tablet TAKE 1 TABLET BY MOUTH EVERY 6 HOURS active Not Available Not Available No t Available Diflucan 150 mg tablet 07/29 completed Not [...] completed Not Available Not Available Not Available Depo-Cam Specialist a 150 mg/mL intramuscul ar syringe Inject 1 mL every 3 months by intramusc ular route. 2024 active Not Available Not Available Not Avai lable aripiprazol e 10 mg tablet active Not [...] Updated DateTime 03/28/2024 153.67 cm 21.1 kg/m2 21725.16 g 117 mm[Hg] 71 mm[Hg] Licha Martinez [facility] 4 10:11:07 Date Recorded Body height Body mass index (BMI) Body weight Heart rate Systolic blood pressure Diastolic blood pressure Provider Name and Address Organization Details Last Updated DateTime 5 153.67 cm 19.4 kg/m2 08583.8 3 g 89 /min 127 mm[Hg] 85 mm[Hg] DAVID Rubalcava [facility] 5 09:42:06 Date Recorded Body height Body mass index (BMI) Body weight Systolic blood pressure Diastolic blood pressure Provider Name and Address Organization Details Last Updated DateTime 07/29/2024 153.67 cm 19.6 kg/m2 02212.42 g 126 mm[Hg] 87 mm[Hg] Licha [facility] 14:56:54 Date Recorded Body height Body mass index (BMI) Body weight Systolic blood pressure Diastolic blood pressure Provider Name and Address Organization Details Last Updated DateTime 08/01/2024 153.67 cm 19.8 kg/m2 66252.01 g 119 mm[Hg] 86 mm[Hg] Licha [facility] 16:05:45 Social History Question Answer Notes LastModified by Organizat ion Details LastModified Time Tobacco Smoking Status Never Smoker Adelaida max, [facility] 07/23/2023 15:28:26 What Is Your Level Of Alcohol Consumption? None [email or web address] Information not available 07/23/2023 If You Are , What Was Your Level Of Alcohol Consumption Prior To ? None [email or web address] Information not available 07/23/2023 Are You Blind Or Do You Have Difficulty Seeing? No [email or web address] Information n ot available 07/23/2023 What Is Your Level Of Caffeine Consumption? Moderate [email or web address] Information not available 07/23/2023 In The 14 Days Before Symptom Onset, Have You Had Close Contact With A Laboratory-confirm ed COVID-19 While That Case Was Ill? No [email or web address] Information n ot available 07/23/2023 In The 14 Days Before Symptom Onset, Have You Had Close Contact With A Person Who Is Under Investigation For COVID-19 While That Person Was Ill? No [email or web address] Information not available 07/23/2023 Have You Been To An Area Known To Be High Risk For COVID-19? No [email or web address] Information not available 07/23/2023 Are You Deaf Or Do You Have Serious Difficulty Hearing? No [email or web address] Information not available 07/23/2023 What Type Of Diet Are You Following? REGULAR [email or web address] Information n ot available 07/23/2023 Which Illicit Or Recreational Drugs Have You Used? Marijuana [email or web address] Information not available 07/23/2023 Do You Use Your Seat Belt Or Car Seat Routinely? Yes [email or web address] Information not available 07/23/2023 Are You Sexually Active? Yes [email or web address] Information not available 07/23/2023 Do You Have Smoke And Carbon Monoxide Detectors In Your Home? Yes [email or web address] Information not available 07/23/2023 Do You Feel Stressed (tense, Restless, Nervous, Or Anxious, Or Unable To Sleep At Night)? [id number] [email or web address] Information not available 07/23/2023 Do You Use Any Illicit Or Recreational Drugs? Yes [email or web address] Information not available 07/23/2023 Do You Use Sunscreen Routinely? Yes [email or web address] Information not available 07/23/2023 Have You Used IV Drugs? No Information not available 07/23/2023 Do You Or Have You Ever Used Any Other Forms Of Tobacco Or Nicotine? No [email or web address] Information not available 07/23/2023 Sex: Unknown Functional Status Question Answer Note LastModified by Organizat ion Details LastModified Time Do you have difficulty walking or climbing stairs? No Information not available 07/23/2023 Are you able to walk? YESWOREST [email or web address] Information not available 07/23/2023 Are you able to care for yourself? Yes [email or web address] Information not available 07/23/2023 Do you have difficulty dressing or bathing? No [email or web address] Information not available 07/23/2023 What is your exercise level? Occasional Information not available 07/23/2023 Mental Status None recorded. Family History Relationship Description Onset Age of this Age Resolved Age Notes LastModified by Organization Details LastModified Time Paternal Uncle Malignant tumor of breast [email or web address] Not available 07/23 08:59:48 Maternal Aunt Malignant tumor of cervix [email or web address] Not available 07/23 08:59:57 Maternal Aunt Diabetes mellitus [email or web address] Not available 07/23 09:00:24 Maternal Aunt Cyst of ovary [email or web address] Not available 03/2 08/2024 15:33:19 Maternal Aunt Disorder of thyroid gland Not available 07/23 09:03:58 Maternal Aunt Endometriosi s (clinical) [email or web address] Not available 0 08/01/2024 15:33:19 Mother Diabetes mellitus [email or web address] Not available 07/23 09:00:24 Paternal Grandmother Diabetes mellitus [email or web address] Not available 07/23 09:00:24 Maternal Grandmother Diabetes mellitus [email or web address] Not available 07/23 09:00:24 Maternal Grandmother Hypertensive disorder [email or web address] Not available 07/23 09:02:01 Maternal Grandmother Malignant tumor of ovary [email or web address] Not available 07/23 09:02:55 Maternal Grandmother Cyst of ovary [email or web address] Not available 07/10 15:33:19 Maternal Grandmother Endometriosi s (clinical) [email or web address] Not available 0 08/01/2024 15:33:19 Father Hypercholest erolemia [email or web address] Not available 07/23 09:00:37 Father Hypertensive disorder Not available 07/23 09:02:00 Paternal Grandfather Malignant tumor of lung [email or web address] Not available 07/23 09:02:37 Brother Autism spectrum disorder [email or web address] Not available 07/10 15:33:19 Brother Muscular dystrophy [email or web address] Not available 07/10 15:33:19 Medical History Condition Response Allergies (Food, seasonal, [...] SNOMED-CT Code Diagnosis ICD10 Code Diagnosis Note [id number] Ginny Lugo [place] [address] [address] 07/23/2023 14:40:50 07/23/2023 15:05:11 screening 302236884 Z36.87 O09.291 Z3A.01 [id number] Ernesto Summers MD [place] [address] [address] 07/23/2023 14:42:47 07/23/2023 17:18:01 Amenorrhea 79990592 N91.2 28-year-ol d female presents for amenorrhea [...] return for sneak peek in 2 weeks. [id number] [facility] [address] [address] 08/05/2023 12:17:03 08/05/2023 13:45:21 [id number] [facility] [address],[place] [address] 09/01/2023 11:37:08 09/01/2023 12:07:56 screening 334426903 Z36.82 Z3A.12 [id number] MD Jaime Georges [address],[place] [address] 09/01/2023 11:40:19 09/01/2023 12:56:09 Routine care 075143191 Z34.91 [id number] [facility] [address],[place] [address] 09/22/2023 11:49:43 09/22/2023 12:28:24 Spotting per vagina in 288762840 O26.852 Z3A.15 [id number] Ernesto Summers MD [place] [address],[place] [address] 10/02/2023 10:57:14 10/02/2023 12:20:26 Routine care 618794726 Z34.91 [id number] [facility] [address],[place] [address] 11/05/2023 11:10:05 11/05/2023 12:17:50 screening for malformation 560532785 Z36.3 Z3A.21 [id number] MD Jaime Georges [address],[place] [address] 11/05/2023 11:10:23 11/05/2023 13:00:13 Vaginitis 41281002 N76.0 Routine an tenatal care 651734115 Z34.91 [id number] MD Jaime Georges [address],[place] [address] 11/30/2023 09:50:11 11/30/2023 10:48:48 Routine care 208292089 Z34.91 [id number] MD Jaime Georges [address],[place] [address] 12/22/2023 10:55:06 12/22/2023 11:53:51 Routine care 223037042 Z34.91 [id number] Ernesto Summers MD [place] [address],[place] [address] 01/05/2024 09:56:27 01/05/2024 11:23:42 Routine care 154253645 Z34.91 [id number] Michelle Cai [place] [address],[place] [address] 01/08/2024 12:39:52 01/09/2024 10:12:13 Gestational diabetes mellitus 94532867 O24.410 Pt here for diet teaching. Went [...] and pt verbalized understand ing. SARAHI ramsey [id number] Ernesto Summers MD [place] [address],[place] [address] 01/22/2024 09:48:33 01/22/2024 11:05:07 Routine care 732900023 Z34.91 [id number] Ernesto Summers MD [place] [address],[place] [address] 01/28/2024 10:36:30 01/29/2024 09:57:47 Routine care 081567367 Z34.91 [id number] Ernesto Summers MD [place] [address],[place] [address] 02/11/2024 14:42:12 02/11/2024 16:59:51 Routine care 424625934 Z34.91 [id number] Ernesto Summers MD [place] [address],[place] [address] 02/19/2024 12:21:10 02/19/2024 13:21:20 Routine care 355457972 Z34.91 [id number] Ernesto Summers MD [place] [address],[place] [address] 02/24/2024 14:06:06 02/24/2024 14:58:34 Routine care 182095980 Z34.91 [id number] JAMESON AVENDANO MD [place] [address],[place] [address] 03/04/2024 12:10:29 03/04/2024 14:37:16 Postoperative visit 472903984 Z48.89 S/p c section on . Incision well-heale d without any signs of infection2 . Family planning options discussed. She plans to use depo vs tubal ligation to prevent . She will continue to abstain from intercours e until her 6wk visit.3. RTC 4wks for post-partu m check [id number] Ernesto Summers MD [place] [address],[place] [address] 03/28/2024 09:46:44 03/28/2024 13:00:05 Female sterilization 38838120 Z30.2 care 52961975 8 Z39.2 This patient is a 28-year-ol [...] ligation. She has not had intercours e. [id number] Licha Martinez [place] [address],[place] [address] 07/19/2024 09:34:23 07/19/2024 15:21:50 Contraception care management 451507179 Z30.9 Hyperglycemia 81820490 R 73.9 Mood disorder 87285630 F 39 [id number] Calista Turner [place] [address] [address] 07/29/2024 13:58:56 07/29/2024 14:55:53 Threatened miscarriage 65138552 O20.0 O26.891 Z3A.01 [id number] Ernesto Summers MD [place] [address] [address] 07/29/2024 14:44:25 08/01/2024 03:56:04 Pain in pelvis 43844576 R10.2 Abnormal u terine bleeding 1177451189 9100 N93.9 Threatened miscarriage 65359088 O20.0 O26.891 Z3A.01 Patient is a 29-year-ol d female who presents for pelvic pain in early gestation. She is 4-5 weeks . She has significan t pelvic pain was seen in the emergency department . Her pelvic ultrasound was normal. She is . She has had some vaginal bleeding. She may be having a miscarriag e. Short-term follow-up. I spent over 20 minutes on her care in total. We discussed miscarriag e, ectopic , topic precaution s. [id number] DAVID Gini [place] [address] [address] 08/01/2024 15:33:12 08/01/2024 16:42:49 Contraception care management 919472797 Z30.9 29-year-ol d female appears to have completed miscarriag e of early . HCGs are very low and trending down. To repeat HCG at the end of this week and start Depo-Prove ra immediatel y after. Recent normal ultrasound . Prescribed medication . Discussed risks, benefits, and alternativ es. She was given precaution s and instructio ns. To inject at the end of this week. Screening procedure 2012 5006 Z13.9 Health Concerns Section Related Observation LastModified by Organization Detai ls LastModified Time None Recorded Concern Status LastModified by Organization Details LastModified Time None Recorded Advance Directives Directive None Recorded Payers Encounter Date Sequence Insurance Name Policy Number Policy Handley Covered Member ID Handley Member ID Guarantor Name 03/28/2024 1 [facility] (MEDICAID HMO) [id number] Radha Mckeon [id number] Radha Mckeon 07/19/2024 1 [facility] (MEDICAID HMO) [id number] Radha Mckeon [id number] Radha Mckeon 07/29/2024 1 [facility] (MEDICAID HMO) [id number] Radha Mckeon [id number] Radha Mckeon 07/29/2024 1 [facility] (MEDICAID HMO) [id number] Radha Mckeon [id number] Radha Mckeon 08/01/2024 1 [facility] (MEDICAID HMO) [id number] Radha Mckeon [id number] Radha Mckeon Notes Date Note Type Note Provider Name and Address Organization Details Recorded Time 03/28/2024 text/html This patient is a 28-year-old [...] intercourse. Ernesto Summers MD [address], [place], [address], [facility] 03/28/2024 12:59:30 07/19/2024 text/html . Licha max, [facility] 07/19/2024 15:18:41 07/29/2024 text/html Patient is a 29-year-old female who presents for pelvic pain in early gestation. She is 4-5 weeks . She has significant pelvic pain was seen in the emergency department. Her pelvic ultrasound was normal. She is . She has had some vaginal bleeding. She may be having a miscarriage. Short-term follow-up. I spent over 20 minutes on her care in total. We discussed miscarriage, ectopic , topic precautions. Ernesto Summers MD [address], [place], [address], [place] [facility] 07/29/2024 17:43:13 08/01/2024 text/html 29-year-old female appears to have completed miscarriage of early . HCGs are very low and trending down. To repeat HCG at the end of this week and start Depo-Provera immediately after. Recent normal ultrasound DAVID Rubalcava [place], [facility] 08/01/2024 16:45:56 OBGyn Episode Ob Episode Information Episode Created Date Number of Fetuses Patient Bloodtype Patient rh Status Prepregnancy Weight lbs Domestic Partner Domestic Partner Phone Father Name Insemination Worker Status 07/23/19 1 CLOSED Fetus Data First Name Last Name Admitted to NICU Weight (g) Sex Living Outcome Pediatric Complications Fetus ID Race Codes Race Delivery Type 2721.55 2 F Prematur e 09093 Vaginal Delivery Jemal Calculation Initial Jemal Date [...] Domestic Partner Domestic Partner Phone Father Name Insemination Worker Status 07/23/19 1 CLOSED Fetus Data First Name Last Name Admitted to NICU Weight (g) Sex Living Outcome Pediatric Complications Fetus ID Race Codes Race Delivery Type , Spontane ous 08087 Jemal Calculation Initial Jemal Date Initial Exam [...] Domestic Partner Domestic Partner Phone Father Name Insemination Worker Status 09/01/19 24 1 O Positive 96 CLOSED Fetus Data First Name Last Name Admitted to NICU Weight (g) Sex Living Outcome Pediatric Complications Fetus ID Race Codes Race Delivery Type 3572.03 7 F 11430 Problems Problem Notes synechiae notedMFM appt: 12/10 11/01 9:45am u/s, 1 week follow up MD visit on 02/11/24 9:30am. [facility] visit for u/s & added on [place] appt 02/22/2024. Problem Name Start Date End Date Resolution Snomed Code Not e Hypotensive episode 30394965 multiple episodes - ambulance to hospital from work x 2seen by cardiology Depressive disorder 15594113 Past history of gestational diabetes mellitus 959841711 Premature delivery 465073270 3 4 weeks - last one Grand multipara 57971849 Anemia 563181799 severe ane xander - Iron infusion referral faxed 12/27 Gestational diabetes mellitus 01/07/2024 27962541 BS QID - seeing MFM every 2 weeks r/t LGA Large for gestation age fetus 132375727 94th %tile Placenta circumvallata 0266350 Fallopian tube excision 032095 002 Jemal Calculation Initial Jemal Date Initial [...] Weight in lbs Pre/Post Dialysis Refused Weight 97.2474271748909 BP Diastolic BP Location Tested BP Systolic [...] Weight in lbs Pre/Post Dialysis Refused Weight 100.746261252785 BP Diastolic BP Location Tested BP Systolic [...] Weight in lbs Pre/Post Dialysis Refused Weight 106.82290988661 BP Diastolic BP Location Tested BP Systolic [...] Weight in lbs Pre/Post Dialysis Refused Weight 111.878313473361 BP Diastolic BP Location Tested BP Systolic [...] Type Weight in lbs Pre/Post Dialysis Refused 117.228873794319 BP Diastolic BP Location Tested BP Systolic [...] Type Weight in lbs Pre/Post Dialysis Refused 119.560230493415 BP Diastolic BP Location Tested BP Systolic [...] Weight in lbs Pre/Post Dialysis Refused Weight 121.090620608692 BP Diastolic BP Location Tested BP Systolic [...] Weight in lbs Pre/Post Dialysis Refused Weight 121.609219097753 BP Diastolic BP Location Tested BP Systolic [...] Weight in lbs Pre/Post Dialysis Refused Weight 125.165726505239 BP Diastolic BP Location Tested BP Systolic [...] Weight in lbs Pre/Post Dialysis Refused Weight 124.899267741157 BP Diastolic BP Location Tested BP Systolic [...] Type Weight in lbs Pre/Post Dialysis Refused 126.03175578927 BP Diastolic BP Location Tested BP Systolic BP Type 80 L arm 119 sitting Fetus Heart Rate Present Fetus Movement A Yes Comments Flowsheet Date 03/04/2024 Lowe Score Blood Edema Fundus Height Fundus Units Glucose Ketones Leukocytes Nitrite Labor Signs Protein Cervic Dilation Cervic Effacement Cervic Station Type Weight in lbs Pre/Post Dialysis Refused Weight [id number] BP Diastolic BP Location Tested BP Systolic [...] Estim ated Date of Delivery false Thalassemia (Hungarian, Czech, Mediterranean, Or Background): MCV < 80 false Neural Tube Defect (Meningomyelocele, Spina Bifi da, Or Anencephaly) false Congenital Heart Defect false Down Syndrome false Ori-Sachs (eg, Uatsdin, Cajun, Zambian-Okaton) f alse Darlin Disease false Sickle Cell Disease Or Trait () false Hemophilia Or Other Blood Disorders false Muscular Dystrophy false Cystic Fibrosis false Pat's Chorea false Intellectual Disability/Autism false If Yes, [...] Domestic Partner Domestic Partner Phone Father Name Insemination Worker Status 07/23/19 24 1 CLOSED Fetus Data First Name Last Name Admitted to NICU Weight (g) Sex Living Outcome Pediatric Complications Fetus ID Race Codes Race Delivery Type 3600.15 9704 M Full Term 50540 Vaginal Delivery Jemal Calculation Initial Jemal Date [...] Domestic Partner Domestic Partner Phone Father Name Insemination Worker Status 07/23/19 24 1 CLOSED Fetus Data First Name Last Name Admitted to NICU Weight (g) Sex Living Outcome Pediatric Complications Fetus ID Race Codes Race Delivery Type 3855.53 2 F Full Term 56189 Vaginal Delivery Jemal Calculation Initial Jemal Date [...] Domestic Partner Domestic Partner Phone Father Name Insemination Worker Status 07/23/19 24 1 CLOSED Fetus Data First Name Last Name Admitted to NICU Weight (g) Sex Living Outcome Pediatric Complications Fetus ID Race Codes Race Delivery Type 2721.55 2 M Prematur e 92892 Vaginal Delivery Jemal Calculation Initial Jemal Date [...]
--- OUTSIDE RECORDS SUMMARY | 2024-08-04 12:11 | XMS_ITS | Clinical Summary ---
Author Organization [facility] Address [address] [place] [address] Care Team Providers Care Tensile Tester Name Role Phone Ernesto Summers MD Primary Care Provider [phone] Allergies No known active allergies Medications vit 73-eqim-xckcw-d thomas 27mg iron- 800 mcg-250 mg capsuleIndicati [...] # Disposition: Follow up task sent to [facility] scheduling pool. Desires discharge home today. [...] Description 07/18/2024 8:30 AM CDT Office Visit [facility] Special[facility] [address] [place] [phone] Niranjan Snider II, MD Syncope, unspecified syncope type (Primary Dx); Seizures, generalized convulsive (HCC); Chronic migraine with aura, intractable, without status migrainosus 06/20/2024 8:00 AM CONSTRUCTION WORKER Office Visit [facility] Medical [facility] Cardiology [address] [phone] Blaze Nicolas MD Hyperlipidemia LDL goal <100 [...] drink = 0.6 oz pur e alcohol) [facility] Utilities Answer Date Recorded In the past 12 months has e electric, gas, oil, or water [employer] threatened to shut off services in your [...] often do you attend chur ch or pentecostalism services? Never 02/18/2024 Do you belong to any clubs o r organizations such as catholic groups, unions, fraternal or athletic groups, or [...] staff should administer the PHQ-9) 0 02/18/2024 [facility] - Occupational [...] place to sleep or slept in a fpc (including now)? No 05/14/2023 Housing Stability Vital [...] were you homeless or living in a fpc (including now)? No 02/18/2024 Personal Safety Answer [...] on file Legal Sex Female 1:09 PM CONSTRUCTION WORKER Gender Identity Female 03/22/2022 7:45 AM CONSTRUCTION WORKER Sexual Orientation Straight 03/22/2022 7: 45 AM CONSTRUCTION WORKER Obstetrics History Para Term AB IAB SAB [...] scott, William John sa, MD Complications:None Delivery Location:[facility] Main C ampus ([facility] 58LD) 2021 35w 1d 0h 08m 0h 01m/0h 07m 2.49 kg (5 lb 7.8 oz) M Vag-S pont Epidur al Y Livin g 8 9 IRAJ MCKEON Matthe w John, MD Complications:Premature Rupt ure of Membranes,Rupture of Membranes > 18 hours Delivery Location:[facility] Main C ampus ([facility] 58LD) 4 SAB SAB Last Filed [...] A M CDT Height 157.5 cm (5' 2 ) 07/18/2024 8:38 AM CDT Body Mass Index [...] CDT) Hep C Ab Nonreactive Nonreactive [facility] Comment:Antibodies to HCV no t detected. Does NOT exclude the possibility of recent exposure to HCV. Blood specimen (specimen) 07/22/2020 6:00 PM CDT 07/22/2020 6:28 PM CDT Dre Ochoa MD LAB MICROBIO LOGY - GENERAL ORDERABLES Edited Result - Final [facility] Department [place] [address] * Pap and High Risk HPV, reflex to Genotyping (02/24/2020 7:00 PM CDT) 02/24/2020 7:00 PM CDT 02/27/2020 2:21 AM CDT Narrative 03/02/2020 10:29 AM CDT EPIC results best viewed via link to PDF [facility] [place] [address] CYTOPATHOLOGY REPORT FINAL WITH ADDENDUM Patient Name: RADHA MCKEON Gender: Dejan : 1995 (Age: 24) Address: [place] [address] Hospital #: [id number] Service: Obstetrics Location: [facility] Patient Type: [facility] OP In Bed Taken: 02/24/2020 Received: [...] results will be issued as an addendum. [facility]/03/01/2020 15:25 By this signature, I attest that [...] 68. This HPV test was performed at [facility] in [place], [place] utilizing the Gen-Probe Aptima assay. By this signature, I attest that the above diagnosis is based upon my personal examination of the slides(and/or other material indicated in the diagnosis). Mayo Stewart DO Report Electronically Reviewed and Signed Out By Mayo Stewart DO 03/08/2020 08:53:49 The HPV test was performed by [facility], [address] [place], [place] [id number]. Report Images and scanned documents, if included only viewable in PDF version The performance characteristics of some immunohistochemical stains, in-situ hybridization and fluorescence in-situ hybridization tests and immunophenotyping by flow cytometry cited in this report (if any) were determined by the Surgical Pathology Department at [facility] as part of an ongoing air quality consultant program and in compliance with federally mandated [...] determined by the Surgical Pathology Department of [facility]. It has not been cleared or approved by the U. S. Food and Drug Administration. Becki Dubon MD LAB CYTOLOGY ORDERABLES Final Result from Last 3 Months or Most Recently Relevant to Health Maintenance [place] [address] [place] [address] [facility] Advance Directives For more information, please contact: [phone] * Full Code (Latest Code Status on [...] 7:22 PM 07/24/2020 10:47 PM Care Teams Tensile Tester Relationship Specialty Start Date End Date Ernesto Summers MD [address] [place] [address] PCP - General Obstetrics and Gynecology 01/27/24
--- OUTSIDE RECORDS SUMMARY | 2024-08-04 12:11 | XMS_ITS ---
Author Organization [facility] Address [address] [place] [address] Care Team Providers Care Heat Treat Worker Name Role Phone Jessi Cowan Primary Care Provider [phone] Allergies Allergen (clinical drug ingredient) Drug/Non Drug [...] Female Encounters Encounter Location Date Provider Diagnosis [address] [address] 07/22/2024 Jessi Cowan Plan Of Treatment Next Appt Details Provider Name:Jessi Alvarez , 09/14/2024 09:00:00 AM, [address] [place], [address], Progress Notes * Maryse MCKEONOB: 8 (29 yo F)Acc No.[id number]:07/22/2024 Patient: Radha HATHAWAY :1995 A ge:29 Y S ex:Female Address:[address] [place] [address], [phone] Subjective: * Chief Complaints: * U pdate [...] Date: Generated for Corina Miles/Puneet on: 0 08/04/2024 12:10 PM CDT
--- OUTSIDE RECORDS SUMMARY | 2024-08-04 12:11 | XMS_ITS ---
Author Organization [facility] Address [address] [place] [address] Care Team Providers Care Livestock Counter Name Role Phone Jessi Cowan Primary Care Provider REASON FOR VISIT update patient chart Social History Sex Assigned At : Social History Observation Description Sex Assigned At Female Encounters Encounter Location Date Provider Diagnosis [address] [address] 07/25/2024 Jessi Cowan Plan Of Treatment Next Appt Details Provider Name:Jessi Alvarez , 09/14/2024 09:00:00 AM, [address], [address], Progress Notes * ANDRE MaryseOB: 8 (29 yo F)Acc No.[id number]:07/25/2024 Patient: Radha HATHAWAY :1995 A ge:29 Y S ex:Female Address:[address] [place] [address], [phone] Subjective: * Chief Complaints: * U pdate [...] move due to the space heaters per dog show judge at court. She feels like she is [...] Date: Generated for Corina jacobsen/Tj/Chasidysmitting on: 0 08/04/2024 12:11 PM CDT
--- OUTSIDE RECORDS SUMMARY | 2024-08-04 12:11 | XMS_ITS ---
Author Organization [facility] Address [address] [place] [address] Care Team Providers Care Quality Lead Name Role Phone Jessi Cowan Primary Care [...] Risk Notes Problem Attention deficit hyperactivity disorder (106979106) ADHD (attention deficit hyperactivity disorder), combined type (F90.2) Active confirmed Problem Anxiety disorder (242334491) Anxiety disorder (F41.9) Active confirmed Problem Mood disorder (51450562) Mood disorder (F39) Active confirmed Vital Signs Weight 104 lbs 07/27/2024 Height 61 in 07/27/2024 BMI 19.65 kg/m2 07/27/2024 Blood pressure systolic 118 mm Hg 07/28/19 25 Blood pressure diastolic 72 mm Hg 025 Heart Rate 112 /min 07/27/2024 Oximetry 98 % 07/27/2024 Temperature 98.0 degrees Fahrenheit 07/28/19 25 Respiratory Rate 16 /min 07/27/2024 Encounters Encounter Location Date Provider Diagnosis [facility] [address] [place] [address] 07/27/2024 Jessi Cowan ADHD (attention deficit hyperactivity [...] today. Cont current meds Encouraged pt to grape picker her Lurasidone Please mx for signs [...] visit Cont current meds- encouraged pt to grape picker lurasidone anastasia Pt voiced understanding 07/27/2024 Other F/U in 2 months Plan Of Treatment Treatment Notes Assessment Notes ADHD (attention deficit hype ractivity disorder), combined type No changes- may want to increase Strattera in the future when her stressors have resolved. Written RX given Anxiety disorder Pt didnt want to make changes today. Cont current meds Encouraged pt to grape picker her Lurasidone Please mx for signs [...] visit Cont current meds- encouraged pt to grape picker lurasidone anastasia Pt voiced understanding Other F/U in 2 months Next Appt Details Follow Up: 2 Months, Reason: Provider Name:Jessi Alvarez , 09/14/2024 09:00:00 AM, [address] [place] [address], [address], Progress Notes * Maryse MCKEONOB: 8 (29 yo F)Acc No.[id number]:07/27/2024 Patient: Mary Kay MKAtul Radha Provider: SHOAIB Flower :1995 A ge:29 Y S ex:Female Date:07/27/2024 Address:[address] [place], [place] [phone] Subjective: * Chief Complaints: * F ollow-up [...] in behavioral health treatment .. S creening: [place] Suicide Severity Rating Scale (LF) D o [...] not having her lurasidone. N eeds to grape picker luradisone. Corin has been out and [...] o. 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 S margareth Question Alcohol Screening H ow [...] today. Cont current meds Encouraged pt to grape picker her Lurasidone Please mx for signs [...] visit Cont current meds- encouraged pt to grape picker lurasidone anastasia Pt voiced understanding 4. O thers Notes: F/U in 2 months * Procedure Codes: * Follow Up: 2 Months * * Sign off status: Completed true * Provider[facility]: 07/27/2024 Generated for Corina jacobsen/Tj/Kayleneitting on: 0 08/04/2024 12:11 PM CDT History and Physical Notes * [...] involved in behavioral health treatment . Screening [place] Suicide Sev erity Rating Scale (LF) Do [...]
--- OUTSIDE RECORDS SUMMARY | 2024-08-04 12:12 | XMS_ITS | Referral Summary ---
Author Organization [facility] Address [address] [place] [address] Care Team Providers Care Pole Shaver Name Role Phone Ernesto Summers MD Primary Care Provider Encounters Date Type Department Care Team Description 07/18/2024 8:30 AM CDT Office Visit [facility] [address] [place] [address] [address] [address] Niranjan Snider II, MD Syncope, unspecified syncope type (Primary Dx); Seizures, generalized convulsive (HCC); Chronic migraine with aura, intractable, without status migrainosus 06/20/2024 8:00 AM SENIOR CLINICAL DATA COORDINATOR Office Visit [facility] Medical Group Cardiology [address] [facility] [address] [place] [phone] Blaze Nicolas MD Hyperlipidemia LDL goal <100 (Primary Dx); Syncope and collapse; Chest pain, unspecified type from Last 3 Months Allergies No known active allergies Medications vit 40-vvrz-kagul-d thomas 27mg iron- 800 mcg-250 mg capsuleIndicati [...] # Disposition: Follow up task sent to [facility] scheduling pool. Desires discharge home today. [...] drink = 0.6 oz pur e alcohol) [facility] Utilities Answer Date Recorded In the [...] How often do you attend chur or mu-ism services? Never 02/18/2024 Do you belong to any clubs o r organizations such as sikhism groups, unions, fraternal or athletic groups, or [...] staff should administer the PHQ-9) 0 02/18/2024 [facility] Questionnaire Answer Date [...] place to sleep or slept in a halfway (including now)? No 05/14/2023 Housing Stability Vital Sign Answer Maximo e Recorded In the last 12 months, was t here a time when you were not able to pay the mortgage or rent on time? No 02/18/2024 In the past 12 months, how m any times have you moved where you were living? 1 02/18/2024 At any time in the past 12 m [facility], were you homeless or living in a halfway (including now)? No 02/18/2024 Personal Safety Answer [...] on file Legal Sex Female 1:09 PM SENIOR CLINICAL DATA COORDINATOR Gender Identity Female 03/22/2022 7:45 AM SENIOR CLINICAL DATA COORDINATOR Sexual Orientation Straight 03/22/2022 7: 45 AM SENIOR CLINICAL DATA COORDINATOR Last Filed Vital Signs Vital Sign Reading [...] CDT) Hep C Ab Nonreactive Nonreactive [facility] Comment:Antibodies to HCV no t detected. Does NOT exclude the possibility of recent exposure to HCV. Blood specimen (specimen) 07/22/2020 6:00 PM CDT 07/22/2020 6:28 PM CDT Dre Ochoa MD LAB MICROBIO LOGY - GENERAL ORDERABLES Edited Result - Final [facility] Department [place] [address] * Pap and High Risk HPV, reflex to Genotyping (02/24/2020 7:00 PM CDT) 02/24/2020 7:00 PM CDT 02/27/2020 2:21 AM CDT Narrative 03/02/2020 10:29 AM CDT EPIC results best viewed via link to PDF [facility] [place] [address] CYTOPATHOLOGY REPORT FINAL WITH ADDENDUM Patient Name: RADHA MCKEON Gender: Dejan : 1995 (Age: 24) Address: [place] [address] Hospital #: [id number] Service: Obstetrics Location: [facility] Patient Type: [facility] OP In Bed Taken: 02/24/2020 Received: 02/27/2020 [...] results will be issued as an addendum. [facility]/03/01/2020 15:25 By this signature, I attest that [...] 68. This HPV test was performed at [facility] in [place], [place] utilizing the Gen-Probe Aptima assay. By this signature, I attest that the above diagnosis is based upon my personal examination of the slides(and/or other material indicated in the diagnosis). Mayo Stewart DO Report Electronically Reviewed and Signed Out By Mayo Stewart DO 03/08/2020 08:53:49 The HPV test was performed by [facility], [address] [place] [address]. Report Images and scanned documents, if included only viewable in PDF version The performance characteristics of some immunohistochemical stains, in-situ hybridization and fluorescence in-situ hybridization tests and immunophenotyping by flow cytometry cited in this report (if any) were determined by the Surgical Pathology Department at [facility] as part of an ongoing quality control coordinator program and in compliance with federally mandated [...] determined by the Surgical Pathology Department of [facility]. It has not been cleared or approved by the U. S. Food and Drug Administration. Becki Dubon MD LAB CYTOLOGY ORDERABLES Final Result from Last 3 Months or Most Recently Relevant to Health Maintenance Insurance [facility] Advance Directives For more information, please contact: [phone] * Full Code (Latest Code Status on [...] 7:22 PM 07/24/2020 10:47 PM Care Teams Pole Shaver Relationship Specialty Start Date End Date Ernesto Summers MD [address] [place] [address] PCP - General Obstetrics and Gynecology 01/27/24
--- OUTSIDE RECORDS SUMMARY | 2024-08-04 12:12 | XMS_ITS | Patient Health Record ---
Author Organization [facility] Address [address] [place] [address] Care Team Providers Care Military Professional Name Role Phone Jessi Cowan Primary Care Provider [phone] Allergies Allergen (clinical drug ingredient) Drug/Non Drug [...] W/U Status Risk Notes Problem Mood disorder (23994011) Mood disorder (F39) Active confirmed Problem Attention deficit hyperactivity disorder (711129361) ADHD (attention deficit hyperactivity disorder), combined type (F90.2) Active confirmed Problem Anxiety disorder (063708693) Anxiety disorder (F41.9) Active confirmed Vital Signs [...] [facility] [address] [place] [address] 07/27/2024 Jessi Cowan ADHD (attention deficit hyperactivity disorder), combined type F90.2 ; Anxiety disorder F41.9 and Mood disorder F39 [address] [place] [address] 07/22/2024 Jessi Cowan [address] [address] 07/25/2024 Jessi Cowan Assessments Encounter Date Diagnosis [...] today. Cont current meds Encouraged pt to chicken picker her Lurasidone Please mx for signs [...] visit Cont current meds- encouraged pt to chicken picker lurasidone anastasia Pt voiced understanding 07/27/2024 Other F/U in 2 months Plan Of Treatment Next Appt Details Provider Name:Jessi Alvarez , 09/14/2024 09:00:00 AM, [address] [place], [address], Insurance Providers Payer Name Payer Address Payer Phone Subscriber Number Group Number Insured Name Patient Relationship to Insured Coverage Start Date Coverage End Date [address] [phone] [id number] Radha Mckeon Self - patient is the insured 5 Medical (General) History Surgical History Surgery Date(Month/Year) right elbow surgery Hospitalization History Reason Date(Month/Year) migraines miscarriage passing out
--- OUTSIDE RECORDS SUMMARY | 2024-08-04 12:12 | XMS_ITS | Encounter Summary ---
Author Organization [facility] Healthcare Address [address] [place] [address] Care Team Providers Care Chief Drafter Name Role Phone Ernesto Summers MD Primary Care Provider [phone] Encounter Details Date Type Department Care Team (Late st Contact Info) Description 09/26/2021 Telephone [facility] Imaging and Radiology [address] [place] [address] Maritza Gustafson RDMS Social History Tobacco Use Types Packs/Day Years Used Date Smoking Tobacco: Never Smokeless Tobacco: Never Alcohol Use Standard Drinks/Week Comments Not Currently 0 (1 standard drink = 0.6 oz pur e alcohol) Comments Yes Sex and Gender Information Value Date Recorded Sex Assigned at Not on file Legal Sex Female 1:09 PM PRIMARY HEALTH CARE NURSE Gender Identity Female 03/22/2022 7:45 AM PRIMARY HEALTH CARE NURSE Sexual Orientation Straight 03/22/2022 7: 45 AM PRIMARY HEALTH CARE NURSE documented as of this encounter Plan of Treatment Not on file documented as of this encounter Visit Diagnoses Not on filedocumented in this encounter Care Teams Chief Drafter Relationship Specialty Start Date End Date Ernesto Summers MD [address] [place], [place] [phone] PCP - General Obstetrics and Gynecology 01/27/24 documented as of this encounter
--- OUTSIDE RECORDS SUMMARY | 2024-08-04 12:12 | XMS_ITS | Encounter Summary ---
Author Organization [facility] Address [address] [facility] [place] [address] Care Team Providers Care Bi Application Developer Name Role Phone Jimmie Robles MD Primary Care Provider [phone] Reason for Visit * Reason Onset Date Comments Results 05/31/2015 Encounter Details Date Type Department Care Team (Late st Contact Info) Description 05/31/2015 Telephone [facility] Pediatrics - GI [address] [place] [address]. [place] [address] Sri Seaman MD [address] [place] [phone] Results Social History Tobacco Use Types Packs/Day [...] Sri Seaman MD - 05/31/2015 10:34 AM CHANGE ATTENDANT Left message on cell phone to call back about biopsy results (home number not in service) Radha's biopsies were normal except for some very mild inflammation in her rectum (which could cause occasional bleeding). Would recommend continuing Miralax. Results are reassuring. GE ATTENDANT documented in this encounter Plan of Treatment Not on file documented as of this encounter Visit Diagnoses Not on filedocumented in this encounter Care Teams Bi Application Developer Relationship Specialty Start Date End Date Jimmie Robles MD [address] [place] [address] PCP - General Pediatrics 02/22/14 documented as of this encounter
--- OUTSIDE RECORDS SUMMARY | 2024-08-04 12:12 | XMS_ITS | Clinical Summary ---
Author Organization [facility] Address [address] [place] [address] Care Team Providers Care Fighting Vehicle Infantryman Name Role Phone Jimmie Robles MD Primary Care Provider [phone] Source Comments [facility],non-owned Affiliates and Associated Physician Practices is amultiple site organization consisting of ambulatory clinics and hospital sitesin [place], [place], [place] and [place]. This disclosure is being madepursuant to the Care Everywhere program and may not contain all information available regarding this patient. Last updated 18.[facility] Allergies No known active allergies Medications * [...] migh t be different from the original. [place] [employer] form completed. Diapers given. 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/2014 9:05 PM INSPECTOR EXPERIMENTAL ASSEMBLY): Assessment Depression 03/30/2014 Anxiety 03/30/2014 Poor weight gain (0-17) 03/30/2014 Resolved Problems Problem Noted Date Diagnosed Date Resolved Date Constipation 03/30/2014 09/20/2014 Menstrual cramps 03/30/2014 02/25/2024 Encounters Date Type Department Care Team Description 05/23/2024 Patient Outreach [facility]/ EVALUATION UNIT [address] [place] [address] Usha Charles, RN Care Management Other (Called pt to follow up with resources sent by [facility] team. Pt is 8+weeks PP. No answer, VML. MyChart-baby/pregnanc y resources. Will close referral if no response by 05/26.) from Last 3 Months Family History Medical History Relation Name Comments Muscular Dystrophy Brother Anxiety Disorder Maternal Aunt Heart Disease Maternal Aunt Anxiety Disorder Maternal Grandmother Arthritis Maternal Grandmother Diabetes Maternal Grandmother Lupus Maternal Grandmother [place]<65(female) Maternal Grandmother Thyroid Disease Maternal Grandmother Anxiety [...] medical care, and heating? Very hard 01/18/2024 [facility] [place] [facility] Occupat ional Health - Occupational Stress [...] place to sleep or slept in a penitentiary (including now)? No 01/18/2024 [place] Depression Scale Answer Date Recorded [place] Depression Scale Total 12 12/07/2023 The thought [...] 12:00 PM CDT Height 154.9 cm (5' 1 ) 02/25/2024 12:00 PM CDT Body Mass Index [...] Group B BONNIE 01/21/2024 12:27 PM CDT [facility] MICROBIOLOGY Microbiology MISCELLANEOUS SAMPLES / Unknown Collection / Unknown 01/18/2024 12:22 PM CDT 01/18/2024 12:28 PM CDT Laura Helm MD LAB - MICROBIOLOGY O RDERABLES [facility] MICROBIOLOGY [address] [place] [address], [facility] [phone] from Last 3 Months or Most Recently Relevant to Health Maintenance Care Teams Fighting Vehicle Infantryman Relationship Specialty Start Date End Date Jimmie Robles MD [facility] [place] [address] PCP - General Pediatrics 02/22/14
== END 2024-08-04 10:58 | disposition home or self-care (01) ==
LOC: ANHLAB 10:58
PROVIDERS: Visit Provider Obstetrics & Gynecology
DX: O02.1 Missed abortion (principal)
CPT/HCPCS: 36415; 84702

== ENCOUNTER 2025-03-14 11:19 | Outpatient (CLI) | payer MEDICAID, SELFPAY ==
--- OUTSIDE RECORDS SUMMARY | 2024-11-09 03:20 | XMS_ITS ---
Author Organization [facility] Address [address] [place] [address] Care Team Providers Care Revenue Investigator Name Role Phone Jessi Cowan Primary Care Provider REASON FOR VISIT 1 Month Psych F/U & Med Refill Social History Sex Assigned At : Social History Observation Description Sex Assigned At Female Encounters Encounter Location Date Provider Diagnosis [facility] [address], [place] [address] 11/09/2024 Jessi Cowan Plan Of Treatment Next Appt Details Provider Name:Jessi hannon, 04/12/2025 08:40:00 AM, [address] [place], [address], Progress Notes * Maryse MCKEONOB: 8 (29 yo F)Acc No.[id number]:11/09/2024 UNLOCKED PROGRESS NOTE Patient: Radha HATHAWAY Provider: SHOAIB Flower :1995 A ge:29 Y S ex:Female Date:11/09/2024 Address:[address] [facility] Subjective: * Chief Complaints: * 1 . 1 Month Psych F/U & Med Refill. * Medical History: Objective: * Vitals: Assessment: Plan: * Treatment: * * Electronic signature of Dee Cowan on 03/14/2025 at 01:40 PM HRIS ANALYST Sign off status: Pending * Provider: SHOAIB Flower Date: 0 11/09/2024 Generated for Corina jacbosen/Tj/eTransmitting on: 05/14/2024 01:40 PM HRIS ANALYST
[2025-03-14 11:57] LABS: Hematocrit 40.0 % (37.0-47.0); Hemoglobin 13.3 g/dL (12.0-15.0)
--- OUTSIDE RECORDS SUMMARY | 2025-03-14 13:40 | XMS_ITS | Clinical Summary ---
Author Organization [facility] Address [address] [place] [address] Care Team Providers Care Arrt Technologist Name Role Phone Jimmie Robles MD Primary Care Provider [phone] Source Comments [facility],non-owned Affiliates and Associated Physician Practices is amultiple site organization consisting of ambulatory clinics and hospital sitesin [place], [place], [place] and [place]. This disclosure is being madepursuant to the Care Everywhere program and may not contain all information available regarding this patient. Last updated 18.[facility] Allergies No known active allergies Medications * This document contains information received from the source organization and may not represent a complete record from that organization. * Be aware that medications may not be up to date on this document. Alwaysverify current medications with the patient. polyethylene glycol 3350 (MIRALAX) powder Take 17 g by mouth 2 times daily 500 g 2 5 Active Additional Information Patient not taking.Reason: Other, Informant: Patient, Reported on 02/04/2024 amitriptyline (ELAVIL) 10 MG tablet Take 1 Tab by mouth at bedtime 90 Tab 3 6 Active Additional Information Patient not taking.Reason: Other, Informant: Patient, Reported on 02/04/2024 atenolol (TENORMIN) 25 MG tabletIndicatio ns:vasovagal syncope Take 2 Tabs by mouth once daily Reasons: vasovagal syncope 60 Tab 11 6 Active Additional Information Patient not taking.Reason: Other, Informant: Patient, Reported on 02/04/2024 ferrous sulfate 325 (65 FE) MG tablet Take 1 (one) tablet by mouth once daily 100 tablet 4 Active Additional Information Patient not taking.Reason: Other, Reported on 02/25/2024 docusate sodium (Colace) 100 MG capsule Take 1 (one) capsule by mouth once daily 60 capsule 4 Active Additional Information Patient not taking.Reason: Other, Informant: Patient, Reported on 02/04/2024 fluconazole (Diflucan) 150 MG tablet 4 Active nitrofurantoin monohyd macro crystals (Macrobid) 100 MG capsule TAKE 1 CAPSULE BY MOUTH TWICE DAILY FOR 5 DAYS DIRECTED 4 Active MV-Min-Fe Fum-FA-DHA ( Multi +DHA) 27-0.8-250 MG CAPS Take by mouth once daily Active sulfamethoxazol e-trimethoprim (Bactrim DS; Septra DS) 800-160 MG tablet Take 1 (one) tablet by mouth 3 Active cyanocobalamin (Vitamin B-12) 100 MCG tablet Take 1 (one) tablet by mouth once daily Active Cholecalciferol (Vitamin D3) 75 MCG (3000 UT) Active pantoprazole EC (Protonix) 20 MG tablet Take 1 (one) tablet by mouth once daily 90 tablet 1 4 Active Additional Information Patient not taking.Reason: Other, Reported on 02/25/2024 Active Problems Patient Care Coordination No te Formatting of this note migh t be different from the original. [place] [employer] form completed. Diapers given. 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): Assessment Depression 03/30/2014 Anxiety 03/30/2014 Poor weight gain (0-17) 03/30/2014 Resolved Problems Problem Noted Date Diagnosed Date Resolved Date Constipation 03/30/2014 09/20/2014 Menstrual cramps 03/30/2014 02/25/2024 Family History Medical History Relation Name Comments Muscular Dystrophy Brother Anxiety Disorder Maternal Aunt Heart Disease Maternal Aunt Anxiety Disorder Maternal Grandmother Arthritis Maternal Grandmother Diabetes Maternal Grandmother Lupus Maternal Grandmother [place]<65(female) Maternal Grandmother Thyroid Disease Maternal Grandmother Anxiety [...] medical care, and heating? Very hard 01/18/2024 [facility] Occupat ional Health - Occupational Stress [...] slept in a usp (including now)? No 01/18/2024 [place] Depression Scale Answer Date Recorded [place] Depression Scale Total 12 12/07/2023 The thought of harming myself has occurred to me . Never 12/07/2023 Comments No Sex and Gender Information Value Date Recorded Sex Assigned at Not on file Legal Sex Female 2:31 PM CDT Gender Identity Not on file Sexual Orientation [...] 3-dose series) 2016 PAP SMEAR 02/23/2023 02/24/2020 DEPRESSION SCREENING 05/11/2024 HPV VACCINE (1 - 3-dose SCDM series) 2024 COVID-19 VACCINE ( - season) 2025 INFLUENZA VACCINE (#1) 2025 7, 02/13/2016, 01/21/2013, Additional history exists ZOSTER VACCINE (1 of 2) 2047 HIV [...] Group B BONNIE 01/21/2024 12:[address] [facility] MICROBIOLOGY Microbiology MISCELLANEOUS SAMPLES / Unknown Collection / Unknown 01/18/2024 12:22 PM CDT 01/18/2024 12:28 PM CDT Laura Helm MD LAB - MICROBIOLOGY ORDERABLES Final Result [facility] MICROBIOLOGY [address] [place] [address], [facility] [phone] from Last 3 Months or Most Recently Relevant to Health Maintenance Insurance [facility] SELF PAY NO INSURANCE Member Subscriber Plan / Payer (Ef fective for All Dates) Name:Johnson Mckeon Member ID:Not on file Relation to Subscriber:Not on file Name:JOHNSON MCKEON Subscriber ID:Not on file (Home) Address: [address] [place] [address] Payer ID:Not on file Group ID:Not on file Type:Self Pay Address: [place], [place] Care Teams Arrt Technologist Relationship Specialty Start Date End Date Jimmie Robles MD [address] [id number] PCP - General Pediatrics 02/22/14
--- OUTSIDE RECORDS SUMMARY | 2025-03-14 13:40 | XMS_ITS | Clinical Summary ---
Author Organization [facility] Address [address] [place] [address] Phone Care Team Providers Care Executive Assistant To President Name Role Phone Domingo Perrin APRN, WATER POLLUTION CONTROL INSPECTOR Primary Care Provider + Allergies No known active allergies Medications Vit-Fe Fumarate-FA ( VITAMIN PO) Take by mouth. Active meloxicam (MOBIC) 7.5 MG Tablet Take 1 Tab by mouth daily. 10 Tab 3 08/15/2016 Active amitriptyline (ELAVIL) 25 MG Tablet Take 25 mg by mouth daily. 3 08/04/2018 Active Family History Medical History Relation Name Comments Hypertension Father Breast Cancer Maternal Grandmother Cancer Maternal Grandmother Diabetes Maternal Grandmother Drug Abuse Maternal Grandmother Hypertension Maternal Grandmother Thyroid Disease Maternal Grandmother Diabetes Mother Drug Abuse Mother Miscarriage Mother Diabetes Paternal Grandfather Hypertension Paternal Grandfather Diabetes Paternal Grandmother Thyroid Disease Paternal Grandmother Relation Name Status Comments Father Maternal Grandmother Mother Paternal Grandfather Paternal Grandmother Social History Tobacco Use Types Packs/Day Years Used Date Smoking Tobacco: Never Smokeless Tobacco: Never Alcohol Use Standard Drinks/Week Comments No 0 (1 standard drink = 0.6 oz pur e alcohol) Comments Unknown Sex and Gender Information Value Date Recorded Sex Assigned at Not on file Legal Sex Female 7:43 PM CDT Gender Identity Not on file Sexual Orientation Not on file Last Filed Vital Signs Vital Sign Reading Time Taken Comments Blood Pressure 116/67 01/21/2020 6:15 PM CDT Pulse 91 01/21/2020 6:22 PM CDT Temperature 36.2 C (97.1 F) 01/21/2020 3:43 PM CDT Respiratory Rate 18 01/21/2020 3:43 PM CDT Oxygen Saturation 99% 01/21/2020 6:22 PM CDT Inhaled Oxygen Concentration - - Weight 44.5 kg (98 lb) 01/21/2020 3:43 PM CDT Height 154.9 cm (5' 1) 01/21/2020 3:43 PM CDT Body Mass Index 18.52 01/21/2020 3:43 PM CDT Plan of Treatment Health Maintenance Due Date Last Done Comments Hepatitis C Virus (HCV) Screening 1995 Influenza Immunization (#1) 2025 02/13/2016, 0 01/21/2013 SARS-COV-2 Immunization (2024- season) 2025 Respiratory Syncytial Virus (RSV) Immunization (Adult) (1 - 1-dose 75+ series) 2072 Hepatitis B Immunization Completed 000, 02/06/1998, 1995 Pneumococcal Immunization Combined Aged Out 11/26/2000 No longer eligible based on patient's age to complete this topic Human Papillomavirus (HPV) Immunization Completed 02/13/2016, 01/21/2013, 12/26/2009 Meningococcal B Immunization Discontinued 02/13/2016 Meningococcal Immunization (ACWY) Completed 02/13/2016, 12/26/2009 DTaP/Tdap/Td Immunization Discontinued 2016, 12/26/2009, 12/15/2002, Additional history exists TdaP Immunization Completed 01/16/2017, 12/26/2009 Rotavirus Immunization Aged Out No lo nger eligible based on patient's age to complete this topic Insurance MEDICAID [place] Advance Directives * Full Code (Latest Code Status on File) Date Activated Date Inactivated Comments 12/06/2016 10:57 PM 12/07/2016 3:45 AM CPR-Full Tr eatment: FULL ARREST: Attempt Resuscitation/CPR wit intubation and mechanical ventilation. PRE-ARREST: Use entire range of life support measures to stabilize the patient. Care Teams Executive Assistant To President Relationship Specialty Start Date End Date Domingo Perrin, MAURICIO, WATER POLLUTION CONTROL INSPECTOR [address] [place] [address] PCP - General Internal Medicine 08/15/16
--- OUTSIDE RECORDS SUMMARY | 2025-03-14 13:40 | XMS_ITS | Data Portability ---
Author Organization '[facility] Address [address] [place] [place] [address] Care Team Providers Care Sap Business Objects Consultant Name Role Phone EMILIA SALGADO Primary Care Provider Assessment No assessment recorded. Plan of Treatment Reminders Order Date Submit Date Provider Last Modified By Organization Details Last Modified Time Details Appointments SURG Diagnosti c Lap 2024 08:30A Hans SUMMERS MD Not available Not available Not available SURG POST OP 2024 09:30A Hans SUMMERS MD Not available Not available Not available Lab test, urine 2024 025 [email or web address] [facility], [address], [address], [place], [address], 02/21/2025 12:47:16 unlisted lab - women's health swab plus, ALBINA 2024 025 [facility] (Lab), [address] [place], [address], 01/25/2025 15:11:46 Referral None recorded. Procedures None recorded. Surgeries salpingec jenny, laparosco pic (SURG) 2024 025 [email or web address] [facility], [facility] [address], [address], 02/06/2025 14:58:40 laparosco py, diagnosti c (SURG) 2024 025 [id number] [facility], [facility] [address], [address], 02/06/2025 15:50:44 Imaging US, pelvis 2024 025 [email or web address] [facility], [address], [place], [address], 01/31/2025 20:45:20 US, transvagi nal 2024 025 [email or web address] [facility], [address], [place], [address], 01/31/2025 20:45:20 Medication Orders Depo-Prov era 150 mg/mL intramusc ular suspensio n 2024 025 [email or web address] Not available 02/21/2025 14:12:42 Patient TargetsNo targets recorded. Patient InstructionsNo instructions recorded. Reason for Referral None Reported. Results Created Date Observation Date Name Description Value Unit Range Abnormal Flag Note LastModifiedBy Organization Detail LastModifiedTime 01/25/2001/24/2025 [facility], [place] bacterial vaginosis (bv), tma Negati ve negati ve Not Available [facility] (Lab) [address] [place], [address], 01/25/2025 15:11:46 01/25/20 25 01/24/2025 [facility]OMEN 'S HEALT H SWAB PLUS, ALBINA samir species, tma Positi ve negati ve abnormal Not Available [facility] (Lab) [address] [facility], [place], [address], 01/25/2025 15:11:46 01/25/20 25 01/24/2025 WOMEN 'S HEALT H SWAB PLUS, ALBINA samir glabrata, tma Negati ve negati ve Not Available [facility] (Lab) [address] [place], [address], 01/25/2025 15:11:46 01/25/20 25 01/24/2025 [facility]OM[facility] 'S [facility]ALT H SWAB PL[facility], ALBINA trichomonas vaginalis, tma Negati ve negati ve Not Available [facility] (Lab) [address] [facility], [place], [address], 01/25/2025 15:11:46 01/25/20 25 01/24/2025 [facility]OM[facility] 'S [facility]ALT H SWAB PL[facility], ALBINA chlamydia trachomatis, PCR Negati ve negati ve Not Available [facility] (Lab) [address] [facility], [place], [address], 01/25/2025 15:11:46 01/25/20 25 01/24/2025 [facility]OM[facility]S [facility] SWAB [facility], ALBINA neisseria gonorrhoeae, PCR Negati ve negati ve Bacte rial vagin osis detec ts the follo wing bacte radha assoc iated with bacte rial vagin osis (BV): Lacto bacil yobany (L. gasse ri, L. crisp atus and L. jense albino), Gardn erell a vagin nahun, and Atopo bium vagin ae. A singl e quali tativ e resul t is repor magaly base on instr ument softw are to deter mine BV posit scarlett or negat scarlett statu s. The Ira da speci es group tests for C. albic ans, C. tropi calis , C. parap francis is, C. dubli niens is. Testi ng is perfo rmed using the Trans cript ion Media magaly Ampli ficat ion metho d. Tests for Ira da glabr zina, Trich omona s vagin nahun, Chlam ydia trach omati s, and Neiss eria gonor rhoea e are also inclu ded in this panel . Not Available [facility] (Lab) [address] [facility], [place], [address], 01/25/2025 15:11:46 02/22/20 25 02/21/2025 pregn junior test, urine HCG negati ve Not Available [facility] [address], [place], [address], 02/21/2025 12:43:43 02/01/20 25 01/31/2025 US, pelvi s No observ ation record ed. [email or web address] [facility] [address], [place], [address], 01/31/2025 15:00:01 02/01/20 25 01/31/2025 US, trans vagin al No observ ation record ed. [email or web address] [facility] [address], [place], [address], 01/31/2025 15:00:12 02/01/20 25 01/31/2025 US, pelvi s No observ ation record ed. [email or web address] Patel [address] [place] [address], [place], [address], 02/07/2025 14:09:22 Result Notes None recorded. Problems Name Problem SNOMED Code Status Onset Date Resolution Date Notes Provider Name and Address Organization Details Recorded Time Past pregnanc y history of gestatio nal diabetes mellitus 347600429 Completed Ernesto Summers MD [address], [place], [address], [facility] 4 10:48:02 Prematur e delivery 116773651 Completed 34 weeks - last one Ernesto Summers MD [address], [place], [address], [facility] 4 10:48:02 Grand multipar a 25728471 Completed Ernesto Summers MD [address], [place], [address], [place] [facility] 4 10:48:02 Placenta circumva llata 1206667 Completed Ernesto Summers MD [address], [place], [address], [facility] 4 10:48:02 Hypotens scarlett episode 19013607 Completed multiple episodes - ambulanc e to hospital from work x 2 seen by cardiolo gy Ernesto Summers MD [address], [place], [address], [facility] 4 10:47:31 Large for gestatio n age fetus 277614315 Completed 94th %tile Ernesto Summers MD [address], [place], [address], [facility] 4 13:09:34 Anemia 444658568 Completed severe anemia - Iron infusion referral faxed 12/27 Jerrica max, [facility] 4 17:51:17 Anemia 590963344 Active severe anemia - Iron infusion referral faxed 12/27 Jerrica max, [facility] 4 17:51:17 Fallopia n tube excision Completed Ernesto Summers MD [address], [place], [address], [facility] 4 10:46:26 Depressi ve disorder 68495965 Completed Ernesto Summers MD [address], [place], [address], [facility] 4 10:46:05 Mood disorder 85546495 Active 2023 Adelaida amx, [facility] 4 15:21:19 Mixed anxiety and depressi ve disorder 142365476 Active 2023 Adelaida max, [facility] 4 15:21:34 Pregnanc y 65257101 Completed 202303/04/2024 Licha max, [facility] 4 13:00:45 Gestatio nal diabetes mellitus 25491840 Completed 08/29/ 2024 BS QID - seeing MFM every 2 weeks r/t LGA Michelle Cai [facility], [facility] 10:41:20 Problem Notes None recorded. Procedures Surgical History Date Name Laterality Status Provider Name and Address Organization Details Recorded Time 07/23/19 24 Date of Last Pap Smear completed [facility] 07/23/2023 15:21:55 05/11/19 14 Date of Last Colonoscopy completed [facility] 07/23/2023 15:23:11 05/11/19 14 Colonoscopy completed [facility] 07/23/2023 15:29:00 05/11/19 12 procedure on elbow completed [facility] 07/23/2023 15:29:12 Imaging Results None recorded. Procedure Notes None recorded. Medical Equipment None Reported. Allergies No known drug allergies Medications Name Sig Start Date Stop Date Status Note LastModified by Organization Details LastModified Time quetiapine 25 mg tablet TAKE 1 TABLET BY MOUTH TWICE A DAY 07/22 completed Not Available Not Available Not Available cyanocobala min (vit B-12) 100 mcg tablet Take by oral route. active Not Available Not Available No t Available tizanidine 2 mg tablet TAKE 1 TO 2 TABLETS BY MOUTH AT BEDTIME active Not Available Not Available No t Available fluconazole 150 mg tablet TAKE 1 TABLET BY MOUTH 1 TIME. REPEAT IN 72 HOURS IF NEEDED 02/06 completed Not Available Not Available Not Available hydrocodone 5 mg-acetamin ophen 325 mg tablet TAKE 1 TABLET BY MOUTH EVERY 6 HOURS 02/06 completed Not Available Not Available Not Available topiramate 25 mg tablet TAKE 1 TABLET BY MOUTH TWICE DAILY FOR 2 WEEKS THEN INCREASE TO 2 TABLETS TWICE DAILY active Not Available Not Available No t Available mesalamine 500 mg rectal suppository Insert by rectal route. 02/06 completed Not Available Not Available Not Available sulfamethox azole 800 mg-trimetho prim 160 mg tablet TAKE 1 TABLET BY MOUTH EVERY 12 HOURS FOR 7 DAYS 07/22 completed Not Available Not Available Not Available pantoprazol e 20 mg tablet,fabian yed release 01/24 completed Not Available Not Available Not Available Macrobid 100 mg capsule Take 1 capsule twice a day by oral route. 07/29 completed Not Available Not Available Not Available nortriptyli ne 25 mg capsule 01/24 completed Not Available Not Available Not Available oxycodone-a cetaminophe n 5 mg-325 mg tablet TAKE 1 TABLET BY MOUTH EVERY 4 HOURS NEEDED 03/28 completed Not Available Not Available Not Available magnesium oxide 400 mg (241.3 mg magnesium) tablet 11/04 completed Not Available Not Available Not Available Depo-Fruit Preserver a 150 mg/mL intramuscul ar suspension Inject 1 mL every 3 months by intramusc ular route. 2024 active Not Available Not Available Not Avai lable rizatriptan 10 mg disintegrat ing tablet TAKE 1 TABLET BY MOUTH ONCE NEEDED FOR MIGRAINE. MAY REPEAT IN 2 HOURS IF UNRESOLVE D. DO NOT EXCEED 30 MG IN 24 HOURS active Not Available Not Available No t Available rizatriptan 5 mg disintegrat ing tablet TAKE ONE TABLET BY MOUTH AT ONSET OF MIGRAINE. IF SYMPTOMS PERSIST, A SECOND DOSE MAY BE TAKEN IN 2 HOURS. DO NOT EXCEED 30MG IN A 24 HOUR PERIOD active Not Available Not Available No t Available propranolol 20 mg tablet TAKE 1 TABLET BY MOUTH TWICE DAILY active Not Available Not Available No t Available ondansetron 4 mg disintegrat ing tablet DISSOLVE 1 TABLET IN MOUTH EVERY 8 HOURS NEEDED FOR NAUSEA FOR VOMITING active Not Available Not Available No t Available hydroxyzine pamoate 25 mg capsule TAKE 1 CAPSULE BY MOUTH TWICE DAILY NEEDED active Not Available Not Available No t Available Depo-Fruit Preserver a 150 mg/mL intramuscul ar syringe Inject 1 mL every 3 months by intramusc ular route. 2024 active Not Available Not Available Not Avai lable aripiprazol e 10 mg tablet 01/24 completed Not Available Not Available Not Available aripiprazol e 15 mg tablet 02/10 completed Not Available Not Available Not Available atomoxetine 40 mg capsule TAKE 1 CAPSULE BY MOUTH ONCE DAILY 01/24 completed Not Available Not Available Not Available atomoxetine 60 mg capsule TAKE 1 CAPSULE BY MOUTH ONCE DAILY IN THE MORNING active Not Available Not Available No t Available aripiprazol e 5 mg tablet 01/24 completed Not Available Not Available Not Available bupropion HCl XL 150 mg 24 hr tablet, extended release TAKE 1 TABLET BY MOUTH EVERY DAY IN THE MORNING FOR CONCENTRA TION 02/06 completed Not Available Not Available Not Available duloxetine 60 mg capsule,del ayed release 02/10 completed Not Available Not Available Not Available mesalamine ER 500 mg capsule,ext ended release Take 2 capsules 3 times a day by oral route. active Not Available Not Available No t Available chlorhexidi ne gluconate 0.12 % mouthwash RINSE AND SPIT BY MOUTH TWICE DAILY X 30 SECONDS 03/28 completed Not Available Not Available Not Available Vitamin D3 active Not Available Not Av ailable Not Available 02/21 completed Not Available Not Available Not Available Vitamin B12 01/24 completed Not Available Not Available Not Available Strattera 01/24 completed Not Available Not Available Not Available FeroSul 325 mg (65 mg iron) tablet 11/04 completed Not Available Not Available Not Available Latuda 01/24 completed Not Available Not Available Not Available lurasidone 20 mg tablet TAKE 1 TABLET BY MOUTH ONCE DAILY IN THE EVENING WITH FOOD active Not Available Not Available No t Available Eloisa 24 Fe 1 mg-20 mcg (24)/75 mg (4) tablet TAKE 1 TABLET BY MOUTH EVERY DAY 07/22 completed Not Available Not Available Not Available Vitals Date Recorded Body height Body mass index (BMI) Body weight Systolic And Diastolic Provider Name and Address Organization Details Last Updated DateTime 01/24/2025 153.67 cm 20.2 kg/m2 40416.2 g 108/75 mm[Hg] Sarah Fernandez [facility] 01/24/2025 10:49:21 Date Recorded Body height Body mass index (BMI) Body weight Systolic And Diastolic Provider Name and Address Organization Details Last Updated DateTime 02/06/2025 153.67 cm 20.4 kg/m2 87753.79 g 135/89 mm[Hg] Licha Martinez [facility] 02/06/2025 12:10:52 Date Recorded Body height Body mass index (BMI) Body weight Systolic And Diastolic Provider Name and Address Organization Details Last Updated DateTime 02/21/2025 153.67 cm 20.7 kg/m2 81418.98 g 122/87 mm[Hg] Licha Martinez [facility] 02/21/2025 12:35:16 Social History Question Answer Notes LastModified by Organizat ion Details LastModified Time Tobacco Smoking Status Never Smoker Adelaida max, [facility] 07/23/2023 15:28:26 If You Are , What Was Your Level Of Alcohol Consumption Prior To ? None Information not available 07/23/2023 Are You Blind Or Do You Have Difficulty Seeing? No [email or web address] Information n ot available 07/23/2023 What Is Your Level Of Caffeine Consumption? Moderate Information not available 07/23/2023 In The 14 Days Before Symptom Onset, Have You Had Close Contact With A Laboratory-confirm ed COVID-19 While That Case Was Ill? No [email or web address] Information n ot available 07/23/2023 In The 14 Days Before Symptom Onset, Have You Had Close Contact With A Person Who Is Under Investigation For COVID-19 While That Person Was Ill? No Information not available 07/23/2023 Have You Been To An Area Known To Be High Risk For COVID-19? No [email or web address] Information not available 07/23/2023 Are You Deaf Or Do You Have Serious Difficulty Hearing? No [email or web address] Information not available 07/23/2023 What Type Of Diet Are You Following? REGULAR [email or web address] Information n ot available 07/23/2023 Which Illicit Or Recreational Drugs Have You Used? Marijuana [email or web address] Information not available 07/23/2023 Do You Use Your Seat Belt Or Car Seat Routinely? Yes [email or web address] Information not available 07/23/2023 Are You Sexually Active? Yes [email or web address] Information not available 07/23/2023 Do You Have Smoke And Carbon Monoxide Detectors In Your Home? Yes [email or web address] Information not available 07/23/2023 Do You Use Sunscreen Routinely? Yes [email or web address] Information not available 07/23/2023 Have You Used IV Drugs? No [email or web address] Information not available 07/23/2023 Do You Have Difficulty Walking Or Climbing Stairs? No [email or web address] Information not available 07/23/2023 Sex: Unknown Functional Status Question Answer Note LastModified by Organizat ion Details LastModified Time Do you use any illicit or recreational drugs? Yes Information not available 07/23/2023 Do you or have you ever used any other forms of tobacco or nicotine? No [email or web address] Information not available 07/23/2023 What is your level of alcohol consumption? None [email or web address] Information not available 07/23/2023 Are you able to walk independently without assistance or assistive devices? YESWOREST [email or web address] Information not available 07/23/2023 Are you able to care for yourself independently? Yes [email or web address] Information not available 07/23/2023 Do you have difficulty dressing, bathing, grooming, or toileting? No [email or web address] Information not available 07/23/2023 What is your exercise level? Occasional [email or web address] Information not available 07/23/2023 Mental Status Question Answer Note LastModified by Organization D etails LastModified Time Do you feel stressed (tense, restless, nervous, or anxious, or unable to sleep at night)? [id number] [email or web address] Information not available 07/23/2023 Family History Relationship Description Onset Age of this Age Resolved Age Notes LastModified by Organization Details LastModified Time Paternal Uncle Malignant neoplasm of breast [email or web address] Not available 07/23 08:59:48 Maternal Aunt Malignant neoplasm of cervix uteri [email or web address] Not available 08:59:57 Maternal Aunt Diabetes mellitus [email or web address] Not available 07/23 09:00:24 Maternal Aunt Cyst of ovary [email or web address] Not available 07/10 15:33:19 Maternal Aunt Disorder of thyroid gland [email or web address] Not available 07/23 09:03:58 Maternal Aunt Endometriosi s (clinical) [email or web address] Not available 0 08/01/2024 15:33:19 Mother Diabetes mellitus [email or web address] Not available 07/23 09:00:24 Paternal Grandmother Diabetes mellitus [email or web address] Not available 07/23 09:00:24 Maternal Grandmother Diabetes mellitus [email or web address] Not available 07/23 09:00:24 Maternal Grandmother Hypertensive disorder [email or web address] Not available 07/23 09:02:01 Maternal Grandmother Malignant neoplasm of ovary Not available 07/23 09:02:55 Maternal Grandmother Cyst of ovary [email or web address] Not available 07/10 15:33:19 Maternal Grandmother Endometriosi s (clinical) [email or web address] Not available 0 08/01/2024 15:33:19 Father Hypercholest erolemia [email or web address] Not available 07/23 09:00:37 Father Hypertensive disorder Not available 07/23 09:02:00 Paternal Grandfather Malignant neoplasm of lung [email or web address] Not available 07/23 09:02:37 Brother Autism spectrum [...] Problems N Thyroid Problems N GI Problems Y Eating Disorder N Anemia Y Art (IVF [...] Date of Last Mammogram Date of LMP 02/18/2025 Was last menstrual period normal Y STIs/STDs N HPV Vaccine N Duration of Flow (days) 7 Current Control Method Depo-Fruit Preserver a Are cycles usually normal Y Date of Last Colonoscopy 05/11/2013 Sexually Active? Y Menses Monthly Y Date of DEXA bone scan Date of Last Pap Smear 07/23/2023 Sexual Problems? N LMP Definite Obstetrics History GPAL:G 7 P 2 3 2 5 Type Value Full Term 2 Spontaneous 2 Premature 3 Living 5 Total 7 Past Encounters Encounter ID Performer Location Encounter Start Date Encounter Closed Date Diagnosis/Indication Diagnosis SNOMED-CT Code Diagnosis ICD10 Code Diagnosis IMO Codes Diagnosis Note [id number] Ernesto Summers MD [facility] [address],[place] [address] 07/23/2023 14:40:50 07/23/2023 15:05:11 screening 837793656 Z36.87 O09.291 Z3A.01 [id number] Ernesto Summers MD [facility] [address],[place] [address] 07/23/2023 14:42:47 07/23/2023 17:18:01 Amenorrhea 19405123 N91.2 28-year-ol d female presents for amenorrhea [...] return for sneak peek in 2 weeks. [id number] Ernesto Summers MD [facility] [address],[place] [address] 08/05/2023 12:17:03 08/05/2023 13:45:21 [id number] Ernesto Summers MD [facility] [address],[place] [address] 09/01/2023 11:37:08 09/01/2023 12:07:56 screening 577656306 Z36.82 Z3A.12 [id number] MD Jaime Georges [address],[place] [address] 09/01/2023 11:40:19 09/01/2023 12:56:09 Routine care 595020979 Z34.91 [id number] MD Jaime Georges [address],[place] [address] 09/22/2023 11:49:43 09/22/2023 12:28:24 Spotting per vagina in 134494760 O26.852 Z3A.15 [id number] MD Jaime Georges [address],[place] [address] 10/02/2023 10:57:14 10/02/2023 12:20:26 Routine care 023772688 Z34.91 [id number] MD Jaime Georges [address],[place] [address] 11/05/2023 11:10:05 11/05/2023 12:17:50 screening for malformation 479655249 Z36.3 Z3A.21 [id number] MD Jaime Georges [address],[place] [address] 11/05/2023 11:10:23 11/05/2023 13:00:13 Vaginitis 18306895 N76.0 Routine an tenatal care 936662904 Z34.91 [id number] MD Jaime Georges [address],[place] [address] 11/30/2023 09:50:11 11/30/2023 10:48:48 Routine care 245658518 Z34.91 [id number] MD Jaime Georges [address],[place] [address] 12/22/2023 10:55:06 12/22/2023 11:53:51 Routine care 086078901 Z34.91 [id number] MD Jaime Georges [address],[place] [address] 01/05/2024 09:56:27 01/05/2024 11:23:42 Routine care 580561251 Z34.91 [id number] Ernesto Summers MD [facility] [address],[place] [address] 01/08/2024 12:39:52 01/09/2024 10:12:13 Gestational diabetes mellitus 14544384 O24.410 Pt here for diet teaching. Went [...] and pt verbalized understand ing. SARAHI ramsey [id number] Ernesto Summers MD [facility] [address],[place] [address] 01/22/2024 09:48:33 01/22/2024 11:05:07 Routine care 502191066 Z34.91 [id number] MD Jaime Georges [address],[place] [address] 01/28/2024 10:36:30 01/29/2024 09:57:47 Routine care 052417820 Z34.91 [id number] MD Jaime Georges [address],[place] [address] 02/11/2024 14:42:12 02/11/2024 16:59:51 Routine care 465794592 Z34.91 [id number] Ernesto Summers MD [facility] [address],[place] [address] 02/19/2024 12:21:10 02/19/2024 13:21:20 Routine care 822299122 Z34.91 [id number] Ernesto Summers MD [facility] [address],[place] [address] 02/24/2024 14:06:06 02/24/2024 14:58:34 Routine care 375977016 Z34.91 [id number] JAMESON AVENDANO MD [facility] [address],[place] [address] 03/04/2024 12:10:29 03/04/2024 14:37:16 Postoperative visit 955831506 Z48.89 S/p c section on . Incision well-heale d without any signs of infection2 . Family planning options discussed. She plans to use depo vs tubal ligation to prevent . She will continue to abstain from intercours e until her 6wk visit.3. RTC 4wks for post-partu m check [id number] Ernesto Summers MD [facility] [address],[place] [address] 03/28/2024 09:46:44 03/28/2024 13:00:05 Female sterilization 48440743 Z30.2 care 55850617 8 Z39.2 This patient is a 28-year-ol [...] ligation. She has not had intercours e. [id number] Ernesto Summers MD [facility] [address],[place] [address] 07/19/2024 09:34:23 07/19/2024 15:21:50 Contraception care management 906960746 Z30.9 Hyperglycemia 41567502 R 73.9 Mood disorder 27828536 F 39 [id number] Ernesto Summers MD [facility] [address] [address] 07/29/2024 13:58:56 07/29/2024 14:55:53 Threatened miscarriage 27491288 O20.0 O26.891 Z3A.01 [id number] Ernesto Summers MD [facility] [address] [address] 07/29/2024 14:44:25 08/01/2024 03:56:04 Pain in pelvis 78740098 R10.2 Abnormal u terine bleeding 4204307893 9100 N93.9 Threatened miscarriage 32514942 O20.0 O26.891 Z3A.01 Patient is a 29-year-ol [...] miscarriag e, ectopic , topic precaution s. [id number] Ernesto Summers MD [facility] [address],[place] [address] 08/01/2024 15:33:12 08/01/2024 16:42:49 Contraception care management 311738597 Z30.9 29-year-ol d female appears to have [...] this week. Screening procedure 2012 5006 Z13.9 [id number] Ernesto Summers MD [facility] [address] [address] 08/05/2024 09:42:42 08/05/2024 15:18:08 Contraception care management 742896756 Z30.9 [id number] Ernesto Summers MD [facility] [address],[place] [address] 11/08/2024 10:46:27 11/08/2024 11:09:18 Contraception care management 449074186 Z30.8 [id number] AASHISH Mohamud [facility] [address],[place] [address] 01/24/2025 10:40:00 01/24/2025 12:13:53 Acute vaginitis 50920944 N76.0 89048 Pain in fe male genitalia on intercourse 41089301 N94.10 3006415 vaginitis/ STI panel sentpelvic u/s ordereddis cussed longevity of symptoms and possible endometrio sispelvic u/s and MD f/u scheduled Time spent in visit is a total of 25 mins with at least 50% of visit consisting of counseling and review of plan of care. Venereal d isease screening 918689440 Z11.3 02795 [id number] Ernesto Summers MD [facility] [address],[place] [address] 01/31/2025 13:53:41 01/31/2025 14:40:27 Pain in pelvis 65627021 R10.2 N94.12 [id number] Ernesto Summers MD [place] [address],[place] [address] 02/06/2025 11:51:50 02/06/2025 17:35:13 Pain in pelvis [id number] R10.2 [id number] Hydrosalpinx [id number] N7 0.11 87015 this patient is a 29-year-ol d female with pelvic pain. She has longstandi ng pelvic pain. Pain started in her early 20s. It has gotten progressiv chan worse over time. She has a cystic structure consistent with a hydrosalpi nx on ultrasound evaluation . Pain is worse at the time of her menses. Nothing is palliative . Intercours e is provocativ e. She rates the pain at 9/10 when it is at its worst. Patient has failed medical treatment. We discussed treatment options in detail. We agreed to diagnostic laparoscop y with bilateral salpingect grecia. She requires that for resection of the hydrosalpi nx. I spent over 20 minutes on the patient's care in total. The patient understand s the procedure. The procedure was described to the patient in great detail. the patient also understand s the risks. The risks were also explained in detail. She understand s that injuries May occur during surgery. She understand s these injuries can result in hospitaliz ation, more surgery, and severe illness. She understand s there is risk of hemorrhage and infection. [id number] AASHISH Mohamud [place] [address],[place] [address] 02/21/2025 12:21:50 02/21/2025 14:54:46 Uses contraception [id number] Z30.42 [id number] Discussed with patient risks, benefits, and alternativ es of contracept ion. Discussed all options, including natural family planning, condoms, combined oral contracept deniz, contracept scarlett patch, Nuva-ring, Depo-Prove ra, Nexplanon, intrauteri ne device, and sterilizat ion (tubal ligation, vasectomy) . Advised that of the above listed options, only condoms can prevent sexually transmitte d infections and that condoms can be used together with any form of contracept ion. She would like to restart Depo , administer ed today by Napoleon mitchell for diagnostic lap and bilateral salpingect grecia with Dr. Summers next monthquest ions answered and precaution s discussed Health Concerns Section Related Observation LastModified by Organization Detai ls LastModified Time None Recorded Concern Status LastModified by Organization Details LastModified Time None Recorded Advance Directives Directive None Recorded Payers Insurance Date Sequence Insurance Name Policy Number Policy Handley Covered Member ID Handley Member ID Guarantor Name 01/24/2025 1 [place] [facility] Radha Mckeon [id number] Radha Mckeon 03/13/2025 1 [place] [facility] Radha Mckeon [id number] Radha Mckeon 03/13/2025 1 [facility] (MEDICAID HMO) [id number] Radha Mckeon [id number] Radha Mckeon 01/24/2025 1 [facility] ([facility]) [id number] Radha Mckeon [id number] Radha Mckeon Notes Date Note Type Note Provider Name and Address Organization Details Recorded Time 01/24/2025 text/html 29yohere today for evaluation of pain with IC. Has been experiencing symptoms for the last 8yrs, worsening over the past yr. All IC is painful, pain will last up to 8-10hrs after IC. Lower cramping/aching. On Depo Provera for BC, prior to depo periods were painful/heavy. Fam h/o endometriosis. AASHISH Mohamud [address], [place], [address], [facility] 01/24/2025 12:08:33 02/06/2025 text/html this patient is a 29-year-old female with pelvic pain. She has longstanding pelvic pain. Pain started in her early 20s. It has gotten progressively worse over time. She has a cystic structure consistent with a hydrosalpinx on ultrasound evaluation. Pain is worse at the time of her menses. Nothing is palliative. [place] is provocative. She rates the pain at 9/10 when it is at its worst. Patient has failed medical treatment. We discussed treatment options in detail. We agreed to diagnostic laparoscopy with bilateral salpingectomy. She requires that for resection of the hydrosalpinx. I spent over 20 minutes on the patient's care in total. The patient understands the procedure. The procedure was described to the patient in great detail. the patient also understands the risks. The risks were also explained in detail. She understands that injuries May occur during surgery. She understands these injuries can result in hospitalization, more surgery, and severe illness. She understands there is risk of hemorrhage and infection. Ernesto Summers MD [address], [place], [address], [facility] 02/06/2025 17:29:27 02/21/2025 text/html 29yo [id number] today to restart Depo Proveramissed her last injection d/t scheduling conflict. Has been using condoms. She is scheduled for a diagnostic lap and salpingectomy next month with Dr. Melina Parkinson, [facility] [address], [place], [address], [facility] 02/21/2025 14:54:24 OBGyn Episode Ob Episode Information Episode Created Date Number of Fetuses Patient Bloodtype Patient rh Status Prepregnancy Weight lbs Domestic Partner Domestic Partner Phone Father Name Composite Laminator Status 02/07/20 25 1 CLOSED Fetus Data First Name Last Name Admitted to NICU Weight (g) Sex Living Outcome Pediatric Complications Fetus ID Race Codes Race Delivery Type , Spontane ous 89348 Jemal Calculation Initial Jemal Date Initial Exam [...] Post Complications Tubal Sterilization Discharge Date Comments 5 Discharge Information Feeding Method Contraceptive Method Maternal HG B and HCT Levels Ob Episode Information Episode Created Date Number of Fetuses Patient Bloodtype Patient rh Status Prepregnancy Weight lbs Domestic Partner Domestic Partner Phone Father Name Composite Laminator Status 07/23/19 24 1 CLOSED Fetus Data First Name Last Name Admitted to NICU Weight (g) Sex Living Outcome Pediatric Complications Fetus ID Race Codes Race Delivery Type 2721.55 2 F Prematur e 37728 Vaginal Delivery Jemal Calculation Initial Jemal Date [...] Domestic Partner Domestic Partner Phone Father Name Composite Laminator Status 07/23/19 24 1 CLOSED Fetus Data First Name Last Name Admitted to NICU Weight (g) Sex Living Outcome Pediatric Complications Fetus ID Race Codes Race Delivery Type , Spontane ous 33761 Jemal Calculation Initial Jemal Date Initial Exam [...] Complications Tubal Sterilization Discharge Date Comments 4 Discharge Information Feeding Method Contraceptive Method Maternal HG B and HCT Levels Ob Episode Information Episode Created Date Number of Fetuses Patient Bloodtype Patient rh Status Prepregnancy Weight lbs Domestic Partner Domestic Partner Phone Father Name Composite Laminator Status 09/01/19 24 1 O Positive 96 CLOSED Fetus Data First Name Last Name Admitted to NICU Weight (g) Sex Living Outcome Pediatric Complications Fetus ID Race Codes Race Delivery Type 3572.03 7 F 99327 Problems Problem Notes synechiae notedMFM appt: 12/10 11/01 9:45am u/s, 1 week follow up MD visit on 02/11/24 9:30am. [facility] visit for u/s & added on DE appt 02/22/2024. Problem Name Start Date End Date Resolution Snomed Code Not e Hypotensive episode [id number] multiple episodes - ambulance to hospital from work x 2seen by cardiology Depressive disorder 85881820 Past history of gestational diabetes mellitus 157183553 Premature delivery 081910421 3 4 weeks - last one Grand multipara 71783538 Anemia 307765328 severe ane xander - [facility] infusion referral faxed 12/27 Gestational diabetes mellitus 01/07/2024 92118321 BS QID - seeing MFM every 2 weeks r/t LGA Large for gestation age fetus 613153484 94th %tile Placenta circumvallata 9474600 Fallopian tube excision 034420 002 Jemal Calculation Initial Jemal Date Initial [...] Weight in lbs Pre/Post Dialysis Refused Weight 97.3542766836963 BP Diastolic BP Location Tested BP Systolic [...] Weight in lbs Pre/Post Dialysis Refused Weight 100.529841437666 BP Diastolic BP Location Tested BP Systolic [...] Weight in lbs Pre/Post Dialysis Refused Weight 106.07184604220 BP Diastolic BP Location Tested BP Systolic [...] Weight in lbs Pre/Post Dialysis Refused Weight 111.165328210726 BP Diastolic BP Location Tested BP Systolic [...] Type Weight in lbs Pre/Post Dialysis Refused 117.369170550755 BP Diastolic BP Location Tested BP Systolic [...] Type Weight in lbs Pre/Post Dialysis Refused 119.526027648834 BP Diastolic BP Location Tested BP Systolic [...] Weight in lbs Pre/Post Dialysis Refused Weight 121.516223216315 BP Diastolic BP Location Tested BP Systolic [...] Weight in lbs Pre/Post Dialysis Refused Weight 121.858686894070 BP Diastolic BP Location Tested BP Systolic [...] Weight in lbs Pre/Post Dialysis Refused Weight 125.648009035800 BP Diastolic BP Location Tested BP Systolic [...] Weight in lbs Pre/Post Dialysis Refused Weight 124.291372616990 BP Diastolic BP Location Tested BP Systolic [...] Type Weight in lbs Pre/Post Dialysis Refused 126.70050945015 BP Diastolic BP Location Tested BP Systolic BP Type 80 L arm 119 sitting Fetus Heart Rate Present Fetus Movement A Yes Comments Flowsheet Date 03/04/2024 Lowe Score Blood Edema Fundus Height Fundus Units Glucose Ketones Leukocytes Nitrite Labor Signs Protein Cervic Dilation Cervic Effacement Cervic Station Type Weight in lbs Pre/Post Dialysis Refused Weight 117.066216909811 BP Diastolic BP Location Tested BP Systolic [...] Estim ated Date of Delivery false Thalassemia ([place] Islander, Chadian, Mediterranean, Or Background): MCV < 80 false Neural Tube Defect (Meningomyelocele, Spina Bifi da, Or Anencephaly) false Congenital Heart Defect false Down Syndrome false Ori-Sachs (eg, Confucianism, Cajun, Mauritanian-Essex) f alse Darlin Disease false Sickle Cell Disease Or Trait () false Hemophilia Or Other Blood Disorders false Muscular Dystrophy false Cystic Fibrosis false Latham's Chorea false Intellectual Disability/Autism false If Yes, [...] Domestic Partner Domestic Partner Phone Father Name Composite Laminator Status 07/23/19 24 1 CLOSED Fetus Data First Name Last Name Admitted to NICU Weight (g) Sex Living Outcome Pediatric Complications Fetus ID Race Codes Race Delivery Type 3600.15 9704 M Full Term 56675 Vaginal Delivery Jemal Calculation Initial Jemal Date [...] Domestic Partner Domestic Partner Phone Father Name Composite Laminator Status 07/23/19 24 1 CLOSED Fetus Data First Name Last Name Admitted to NICU Weight (g) Sex Living Outcome Pediatric Complications Fetus ID Race Codes Race Delivery Type 2721.55 2 M Prematur e 97172 Vaginal Delivery Jemal Calculation Initial Jemal Date [...] Domestic Partner Domestic Partner Phone Father Name Composite Laminator Status 07/23/19 24 1 CLOSED Fetus Data First Name Last Name Admitted to NICU Weight (g) Sex Living Outcome Pediatric Complications Fetus ID Race Codes Race Delivery Type 3855.53 2 F Full Term 24034 Vaginal Delivery Jemal Calculation Initial Jemal Date [...]
--- OUTSIDE RECORDS SUMMARY | 2025-03-14 13:40 | XMS_ITS | Encounter Summary ---
Author Organization [facility] Address [address] [place] [address] Phone Care Team Providers Care Shipping Track Supervisor Name Role Phone Don Arredondo MD Unavailable Yu Sahni NP Primary Care Provider Ernesto Summers MD Unavailable [phone] Agatha HARTMAN MD, Carlos M. Unavailable [phone] Encounter Details Date Type Department Care Team (Late st Contact Info) Description 01/13/2025 Results Follow-Up [facility] Medicine Cardiology [address] [facility] [address] [facility] Advanced Medicine 8th [place] [address] [place] [id number] Leila Ackerman MD [address] [place] [address] ECG 12 lead, MCT Mobile Cardiac Telemetry Event Monitor Social History Tobacco Use Types Packs/Day Years Used Date Smoking Tobacco: Never Smokeless Tobacco: Never Alcohol Use Standard Drinks/Week Comments Not Currently 0 (1 standard drink = 0.6 oz pur e alcohol) [facility] Utilities Answer Date Recorded In the past 12 months has e electric, gas, oil, or water Grow threatened to shut off services in your home? No 10/06/2024 Humiliation, Afraid, Rape, and Kick questionnair e [...] or ex-partner? No 05/14/2023 Social Connection and Isolation Panel Answer Date Recorded In a typical week, how many times do you talk on the phone with family, friends, or neighbors? More than three times a week 10/06/2024 How often do you get togethe r with friends or relatives? Twice a week 10/06/2024 How often do you attend chur ch or roman catholic services? Never 10/06/2024 Do you belong to any clubs o r organizations such as islam groups, unions, fraternal or athletic groups, or school groups? No 10/06/2024 How often do you attend meet ings of the clubs or organizations you belong to? Never 10/06/2024 Are you , , di vorced, , never , or living with a partner? 10/06/2024 AUDIT-C Answer Date Recorded Q1: How often do you have a drink containing alcohol? Never 12/01/2024 Q2: How many drinks containi ng alcohol do you have on a typical day when you are drinking? Patient does not drink Q3: How often do you have si x or more drinks on one occasion? Never 12/01/2024 Overall Financial Resource Strain (CARDIA) Answe r Date Recorded How hard is it for you to pa y for the very basics like food, housing, medical care, and heating? Not hard at all 10/06/2024 PHQ-2 Answer Date Recorded PHQ-2 Total Score (If total score is 3 or more points, staff should administer the PHQ-9) 0 12/01/2024 [facility]ational Stress Questionnaire Answer Date [...] the money to buy more. Never true 10/07/19 25 Within the past 12 months, t he food you bought just didn't last and you didn't have money to get more. Never true 10/06/2024 PRAPARE - Transportation Answer Date Re corded In the past 12 months, has l ack of transportation kept you from medical appointments or from getting medications? No 09/09 In the past 12 months, has l ack of transportation kept you from meetings, work, or from getting things needed for daily living? No 10/06/2024 Housing Stability Vital Sign Answer Maximo e [...] place to sleep or slept in a skilled nursing (including now)? No 05/14/2023 Housing Stability Vital Sign Answer Maximo e Recorded In the last 12 months, was t here a time when you were not able to pay the mortgage or rent on time? No 10/06/2024 In the past 12 months, how m any times have you moved where you were living? 0 10/06/2024 At any time in the past 12 m [facility], were you homeless or living in a skilled nursing (including now)? No 10/06/2024 Personal Safety Answer Date Recorded Have you ever been in or are you currently in a harmful physical or emotional relationship or is someone making you feel afraid or unsafe? Denies 10/05/2024 Education Answer Date Recorded What is the highest level of school you have completed or the highest degree you have received? Some college, no degree 05/14/2023 Comments No Sex and Gender Information Value Date Recorded Sex Assigned at Not on file Legal Sex Female 1:09 PM STATE TESTED NURSING ASSISTANT Gender Identity Female 03/22/2022 7:45 AM STATE TESTED NURSING ASSISTANT Sexual Orientation Straight 03/22/2022 7: 45 AM STATE TESTED NURSING ASSISTANT documented as of this encounter Plan of Treatment Upcoming Encounters Date Type Department Care Team (Late st Contact Info) Description 04/05/2025 12:00 PM STATE TESTED NURSING ASSISTANT Hospital Encounter [address] [address] Claritza Gross MD [address] [facility] [address] [place] [address] 04/05/2025 12:00 PM STATE TESTED NURSING ASSISTANT - 04/05/2025 12:30 PM STATE TESTED NURSING ASSISTANT Surgery [address] [address] Claritza Gross MD [address] [facility] [address] [place] [address] COLONOSCOPY Scheduled Procedures Name Priority Associated Diagnoses Date/Ti me COLONOSCOPY Ulcerative colitis with complication, unspecified location (HCC) 04/05/2025 12:00 PM STATE TESTED NURSING ASSISTANT documented as of this encounter Visit Diagnoses Not on filedocumented in this encounter Care Teams Shipping Track Supervisor Relationship Specialty Start Date End Date Yu Sahni NP [address] [facility] [address] [place] [address] PCP - General Family Medicine 12/01/24 Don Arredondo MD [address] [facility] [address] [place] [address] Consulting Physician Gastroenterology 10/10/24 Ernesto Summers MD [address] [place] [address] Referring Physician Obstetrics and Gynecology 12/01/24 [place] [address] [place] [address] Consulting Physician Neurology 12/01/24 documented as of this encounter
--- OUTSIDE RECORDS SUMMARY | 2025-03-14 13:40 | XMS_ITS | Patient Health Record ---
Author Organization Formerly [facility] Address [address] [place] [address] Care Team Providers Care Photo Cartographer Name Role Phone Antonioriddhi Jessi Primary Care Provider Sriram Good [phone] Allergies Allergen (clinical drug ingredient) Drug/Non Drug Allergy documented on EMR Reaction Allergy Type Onset Date Status Green Peppers (uncoded) Unknown Allergy Active Reason For Referral No Information Medications Medication SIG (Take, Route, Frequency, Duration) Notes Start Date End Date Status Latuda 20 MG 1 tablet in the evening with food Orally Once a day; Duration: 30 days Active Zanaflex 4 MG 1 tablet at bedtime as needed Orally Once a day Active Strattera 60 MG 1 capsule in the morning Orally Once a day; Duration: 30 days Active Pentasa 500 MG 2 capsules Orally Four times a day Active Topamax 25 MG 1 tablet Orally Once a day Not-Taking Cipro 500 MG 1 tablet Orally every 12 hrs Not-Taking Depo-Provera 150 MG/ML 1 mL Intramuscular Active Canasa 1000 MG 1 suppository at bedtime Rectal Once a day Active Adult Gummy/DHA/FA 0.4-25 MG as directed Orally Active Vitamin B 12 500 MCG 1 tablet Orally Once a day Active Ondansetron HCl 4 MG 1 tablet Orally Once a day Active Nortriptyline HCl 25 MG 1 capsule at bedtime Orally Once a day after 1 week take 2 tabs Neuro prescribes Not-Taking hydrOXYzine Pamoate 25 MG 1 capsule twice daily PRN Orally twice a day; Duration: 30 days 09/14/2024 Active Social History Tobacco Use: Social History Observation Description Date Details (start date - stop date) Never Smoker NA - NA Sex Assigned At : Social History Observation Description Sex Assigned At Female PRAPARE Question Answer Notes Date Completed/Updated: 09/01/2024 What is your current housing situation? I have h ousing Are you worried about losing your housing? No What is the highest level of school that you have finished? 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 Check all that apply I do not have problems meeting my needs Has lack of transportation k ept you from medical appointments, meetings, work or from getting things needed for daily living? No How often do you see or talk to people that you care about and feel close to? (For example: talking to friends on the phone, visiting friends or family, going to methodist or club meetings) More than 5 times a week How stressed are you? Stress is when someone feels tense, nervous, anxious, or can\t sleep at night because their mind is troubled Somewhat Do you feel physically and e motionally safe where you currently live? Yes In the past year, have you b een afraid of your partner or ex-partner? No PRAPARE Score: 3 Tobacco Control (Standard) Question Answer Notes Tobacco use: Nonsmoker Problems Problem Type SNOMED Code ICD Code Onset Dates Problem Status W/U Status Risk Notes Problem Mood disorder (67670299) Mood disorder (F39) Active confirmed Problem Attention deficit hyperactivity disorder (690061772) ADHD (attention deficit hyperactivity disorder), combined type (F90.2) Active confirmed Problem Anxiety disorder (770656033) Anxiety disorder (F41.9) Active confirmed Problem Insomnia due to mental disorder (98981713) Insomnia due to mental disorder (F51.05) Active confirmed Vital Signs Heart Rate 88 /min 02/22/2025 Temperature 98.0 degrees Fahrenheit 07/27/2024 Respiratory Rate 16 /min 02/22/2025 Blood pressure diastolic 81 mm Hg 11/23/2024 Oximetry 98 % 02/22/2025 Height 61in in 02/22/2025 Blood pressure systolic 101 mm Hg 11/23/2024 Weight 109.4lbs lbs 02/22/2025 BMI 20.67 kg/m2 02/22/2025 Encounters Encounter Location Date Provider Diagnosis [address], [place] [address] 07/27/2024 Jessi Noeth ADHD (attention deficit hyperactivity disorder), combined type F90.2 ; Anxiety disorder F41.9 and Mood disorder F39 [address] [address] 09/14/2024 Jessi Noeth ADHD (attention deficit hyperactivity disorder), combined type F90.2 ; Anxiety disorder F41.9 ; Mood disorder F39 and Insomnia due to mental disorder F51.[address] [address] 10/12/2024 Jessi Noe Mood disorder F39 ; ADHD (attention deficit hyperactivity disorder), combined type F90.2 ; Anxiety disorder F41.9 and Insomnia due to mental disorder F51.[address] [address] 11/23/2024 Jessi Noe ADHD (attention deficit hyperactivity disorder), combined type F90.2 ; Mood disorder F39 ; Anxiety disorder F41.9 and Insomnia due to mental disorder F51.[address] [address] 02/22/2025 Jessi Noe Mood disorder F39 ; ADHD (attention deficit hyperactivity disorder), combined type F90.2 ; Anxiety disorder F41.9 and Insomnia due to mental disorder F51.[address] [address] 07/22/[address] [place] [address] 07/25/[address] [address] 09/02/[address] [address] 02/22/2025 Sriram Good Contact with and (suspected) exposure to other communicable diseases Z20.89 Assessments Encounter Date Diagnosis (ICD Code) Assessment Notes Treatment Notes Treatment Clinical Notes Section Notes 07/27/2024 ADHD (attention deficit hyperactivity disorder), combined type (ICD-10 - F90.2) No changes- may want to increase Strattera in the future when her stressors have resolved. Written RX given 07/27/2024 Anxiety disorder (ICD-10 - F41.9) Pt didnt want to make changes today. Cont current meds Encouraged pt to pick remover her Lurasidone Please mx for signs and symptoms of : Neuroleptic malignant syndrome (NMS) is a rare and life-threatening reaction to the use of any antipsychotic medications.Sympto ms of NMS include but not limited to:High [...] to avoid triggers and reduce anxious states 09/14/2024 ADHD (attention deficit hyperactivity disorder), combined type (ICD-10 - F90.2) No changes- may want to increase Strattera in the future when her stressors have resolved. Will re-visit topic of increasing Straterra (as if can cause weight loss )when she off Topmax and wieght is stable. Pt aware to call 911 and or 988 if having thoughts of suicide plan or intent or having homicidal ideations. Pt voiced understanding. Serotonin syndrome: This syndrome is composed a number of symptoms indicating that the person has too much serotonin, and it is potentially fatal. Symptoms include agitation, hallucinations, stiff muscles, loss of coordination, tremors, high temperature, flushing, fast heartbeat, sweating, dizziness, nausea/vomiting/di arrhea, seizures, and coma. Pt educated and aware that some mental health medication can be harmful to fetus. Pt encouraged to use a reliable form of control (these were discussed). If pt desires or becomes pt is aware to seek medical advice immediately to discuss current medications with OBGYN and myself. Pt voiced understanding. Registry - encourage to enroll National Registry for Antidepressants- www.[facility].org/research/ pregnancyregistry/ antidepressants National Registry for Atypical Antipsychotics www. [facility].org/clinica l- nfl-faemxzey-tecwo ams/pregnancyregis try Support International- http/www.postpartu m.net Psychiatry Access Program- http//www. [facility]/lifel dqu5clzy/Access-Pr ograms 09/14/2024 Anxiety disorder (ICD-10 - F41.9) Start Hydroxyzine 25mg po BID PRN- Take as prescribed. Reviewed purpose (reduce anxiety and/or promote sleep), benefits, and risks - including sedation and dry mouth. Discussed anxiety and ways to avoid triggers and reduce anxious state 10/12/2024 Mood disorder (ICD-10 - F39) cont current meds Neuroleptic malignant syndrome (NMS) is a rare and life-threatening reaction to the use of any antipsychotic medications. Symptoms of NMS include but not limited to:High fever (hyperthermia), Stiff, rigid muscles that can lead to eventual muscle breakdown, AMS, blood pressure changes, excessive sweating and excessive secretion of saliva.NMS is potentially life-threatening and requires immediate medical attention in a hospital setting. If this condition is suspected please send pt out to be evaluated further. Second generation antipsychotics (SGAs) have metabolic syndrome issues with weight gain, increase in prolactin, increased waist circumference, increased lipids, and increased glucose. Thus routine monitoring of weight, metabolic labs, etc. is indicated. A general rank ordering of antipsychotics that have the greatest to the least risk of metabolic effects is olanzapine, quetiapine, risperidone, ziprasidone, and aripiprazole. However, weight gain can occur with all of these drugs and considerable variability exists among patients receiving the same drug regarding the risk of metabolic effects. Anti-psychotic agents not only increase the risk of metabolic disorder, they also increase the risk of CVA, akathisia, and movement disorders including EPS or tardive dyskinesia (more common with first generation antipsychotics) and more. Second generation antipsychotics (SGAs) have metabolic syndrome issues with weight gain, increase in prolactin, increased waist circumference, increased lipids, and increased glucose. Thus routine monitoring of weight, metabolic labs, etc. is indicated. A general rank ordering of antipsychotics that have the greatest to the least risk of metabolic effects is olanzapine, quetiapine, risperidone, ziprasidone, and aripiprazole. However, weight gain can occur with all of these drugs and considerable variability exists among patients receiving the same drug regarding the risk of metabolic effects. Anti-psychotic agents not only increase the risk of metabolic disorder, they also increase the risk of CVA, akathisia, and movement disorders including EPS or tardive dyskinesia (more common with first generation antipsychotics) and more. [place] 10/12/2024 ADHD (attention deficit hyperactivity disorder), combined type (ICD-10 - F90.2) increase straterra to 60mg po once daily - discussed medication increase in length and pt agreeable 11/23/2024 Mood disorder (ICD-10 - F39) Needs AIMS at future visit Cont current medication Pt aware to call 911 and or 988 if having thoughts of suicide plan or intent or having homicidal ideations. Pt voiced understanding. Second generation antipsychotics (SGAs) have metabolic syndrome issues with weight gain, increase in prolactin, increased waist circumference, increased lipids, and increased glucose. Thus routine monitoring of weight, metabolic labs, etc. is indicated. A general rank ordering of antipsychotics that have the greatest to the least risk of metabolic effects is olanzapine, quetiapine, risperidone, ziprasidone, and aripiprazole. However, weight gain can occur with all of these drugs and considerable variability exists among patients receiving the same drug regarding the risk of metabolic effects. Anti-psychotic agents not only increase the risk of metabolic disorder, they also increase the risk of CVA, akathisia, and movement disorders including EPS or tardive dyskinesia (more common with first generation antipsychotics) and more. Pt educated and aware that some mental health medication can be harmful to fetus. Pt encouraged to use a reliable form of control (these were discussed). If pt desires or becomes pt is aware to seek medical advice immediately to discuss current medications with OBGYN and myself. Pt voiced understanding. Registry - encourage to enroll National Registry for Antidepressants- www.[facility].org/research/ pregnancyregistry/ antidepressants National Registry for Atypical Antipsychotics www. [facility].org/clinica l- cqj-teoxzedm-dpbgy ams/pregnancyregis try Support International- http/www.postpartu m.net Psychiatry Access Program- http//www. [facility]/lifel bdt9tukx/Access-Pr ograms 11/23/2024 ADHD (attention deficit hyperactivity disorder), combined type (ICD-10 - F90.2) doing well with increase in Strattera last viist Cont [place] 02/22/2025 Mood disorder (ICD-10 - F39) continue current meds- enouraged med compliance Appears stable at this time Pt aware to call 911 and or 988 if having thoughts of suicide plan or intent or having homicidal ideations. Pt voiced understanding. Second generation antipsychotics (SGAs) have metabolic syndrome issues with weight gain, increase in prolactin, increased waist circumference, increased lipids, and increased glucose. Thus routine monitoring of weight, metabolic labs, etc. is indicated. A general rank ordering of antipsychotics that have the greatest to the least risk of metabolic effects is olanzapine, quetiapine, risperidone, ziprasidone, and aripiprazole. However, weight gain can occur with all of these drugs and considerable variability exists among patients receiving the same drug regarding the risk of metabolic effects. Anti-psychotic agents not only increase the risk of metabolic disorder, they also increase the risk of CVA, akathisia, and movement disorders including EPS or tardive dyskinesia (more common with first generation antipsychotics) and more. 02/22/2025 ADHD (attention deficit hyperactivity disorder), combined type (ICD-10 - F90.2) continue current meds Appears stable at this time 02/22/2025 Contact with and (suspected) exposure to other communicable diseases (ICD-10 - Z20.89) Patient Educated with: HIV testing Care Instructions.pdf (HIV testing Care Instructions.pdf) 07/27/2024 Mood disorder (ICD-10 - F39) Needs AIMS at future visit Cont current meds- encouraged pt to pick remover lurasidone anastasia Pt voiced understanding 02/22/2025 Anxiety disorder (ICD-10 - F41.9) Appears stable at this time Discussed anxiety and ways to avoid triggers and reduce anxious states Take medications as prescribed. Discussed possible SEs, risks, and benefits. Reviewed black box warning for possible SI. Continue with regular exercise and a healthy, balanced diet. Follow up with the counselor as discussed. Pt advised to call or seek immediate medical attention if they develop any new or worsening symptoms. Follow up at prev schedule as discussed as appt or sooner if needed. Patient/caregiver instructed to call or seek medical attention if any new or worsening symptoms. Red flag symptoms/indicatio ns for trip to ER reviewed. Patient/caregiver voiced understanding and agreement with the above. 11/23/2024 Anxiety disorder (ICD-10 - F41.9) Discussed anxiety and ways to avoid triggers and reduce anxious states cont current meds 10/12/2024 Anxiety disorder (ICD-10 - F41.9) Discussed anxiety and ways to avoid triggers and reduce anxious states cont current meds 09/14/2024 Mood disorder (ICD-10 - F39) Needs AIMS at future visit Cont current meds- encouraged pt to pick remover lurasidone anastasia Pt voiced understanding Reminded pt to eat with medication (lurasidone) Neuroleptic malignant syndrome (NMS) is a rare and life-threatening reaction to the use of any antipsychotic medications. Symptoms of NMS include but not limited to:High fever (hyperthermia), Stiff, rigid muscles that can lead to eventual muscle breakdown, AMS, blood pressure changes, excessive sweating and excessive secretion of saliva.NMS is potentially life-threatening and requires immediate medical attention in a hospital setting. If this condition is suspected please send pt out to be evaluated further. Please mx for signs and symptoms of : Neuroleptic malignant syndrome (NMS) is a rare and life-threatening reaction to the use of any antipsychotic medications.Sympto ms of NMS include but not limited to:High [...] to avoid triggers and reduce anxious states 09/14/2024 Insomnia due to mental disorder (ICD-10 - F51.05) 10/12/2024 Insomnia due to mental disorder (ICD-10 - F51.05) Sleep Hygiene- Go to bed and get up at the same time every day. Keep bedroom quiet, relaxing, and at a cool temperature. Turning off electronic devices at least 30 minutes before bedtime. Avoiding large meals and alcohol before bedtime. Avoiding caffeine in the afternoon or evening. Exercising regularly and maintaining a healthy diet. Utilize bed for sleep Encourage patient to have all electronics often hour before bed. Encourage a bedtime routine. cont current meds 11/23/2024 Insomnia due to mental disorder (ICD-10 - F51.05) cont curren meds Sleep Hygiene- Go to bed and get up at the same time every day. Keep bedroom quiet, relaxing, and at a cool temperature. Turning off electronic devices at least 30 minutes before bedtime. Avoiding large meals and alcohol before bedtime. Avoiding caffeine in the afternoon or evening. Exercising regularly and maintaining a healthy diet. Utilize bed for sleep Encourage patient to have all electronics often hour before bed. Encourage a bedtime routine. 02/22/2025 Insomnia due to mental disorder (ICD-10 - F51.05) Sleep Hygiene- Go to bed and get up at the same time every day. Keep bedroom quiet, relaxing, and at a cool temperature. Turning off electronic devices at least 30 minutes before bedtime. Avoiding large meals and alcohol before bedtime. Avoiding caffeine in the afternoon or evening. Exercising regularly and maintaining a healthy diet. Utilize bed for sleep Encourage patient to have all electronics often hour before bed. Encourage a bedtime routine. 07/27/2024 Other F/U in 2 months Plan Of Treatment Future Test Test Name Order Date HIV Screen *HIV 1, 2 Ab, p24 Ag ([id number]) 03/01/2025 Next Appt Details Provider Name:Jessi Alvarez , 04/12/2025 08:40:00 AM, [address] [place] [address], [phone], Insurance Providers Payer Name Payer Address Payer Phone Subscriber Number Group Number Insured Name Patient Relationship to Insured Coverage Start Date Coverage End Date [employer] [facility] [address] [place] [phone] [id number] Radha Mckeon Self - patient is the insured Medical (General) History Surgical History Surgery Date(Month/Year) right elbow surgery Hospitalization History Reason Date(Month/Year) [facility] miscarriage passing out migraines
--- OUTSIDE RECORDS SUMMARY | 2025-03-14 13:40 | XMS_ITS | Encounter Summary ---
Author Organization [facility] Address [address] [place] [address] Care Team Providers Care Tire Shop Manager Name Role Phone Jimmie Robles MD Primary Care Provider [phone] Reason for Visit * Reason Onset Date Comments Results 05/31/2015 Encounter Details Date Type Department Care Team (Late st Contact Info) Description 05/31/2015 Telephone [facility] Pediatrics - [address] [address] Sri Seaman MD [address] [place] [id number] Results Social History Tobacco Use Types Packs/Day Years Used Date Smoking Tobacco: Passive Smo ke Exposure - Never Smoker Alcohol Use Standard Drinks/Week Comments No 0 (1 standard drink = 0.6 oz pur e alcohol) Comments No Sex and Gender Information Value Date Recorded Sex Assigned at Not on file Legal Sex Female 2:31 PM CDT Gender Identity Not on file Sexual Orientation Not on file documented as of this encounter Functional Status * Is person deaf or have serious hearing difficulty? Answer Date of Assessment Author No 05/21/2015 2:17 PM Tammi Bacon RN * Is person blind or have serious difficulty seeing? Answer Date of Assessment Author No 05/21/2015 2:17 PM Tammi Bacon RN * Does person have serious difficulty walking/climbing stairs? Answer Date of Assessment Author No 05/21/2015 2:17 PM Tammi Bacon RN * Does person have difficulty dressing/bathing? Answer Date of Assessment Author No 05/21/2015 2:17 PM Tammi Bacon RN * Does person have difficulty doing errands alone? Answer Date of Assessment Author No 05/21/2015 2:17 PM [employer]ATOR [employer]INK[employer] Tammi Nielsen RN documented as of this encounter Mental Status * Does person have difficulty concentrating/remembering/making decisions? Answer Entry Date Author No 05/21/2015 2:17 PM [employer] Tammi Nielsen RN documented in this encounter Miscellaneous Notes * Telephone Encounter - Sri Seaman MD - 05/31/2015 10:34 AM IRR[employer]ATOR [employer] Left message on cell phone to call back about biopsy results (home number not in service) Radha's biopsies were normal except for some very mild inflammation in her rectum (which could cause occasional bleeding). Would recommend continuing Miralax. Results are reassuring. GATOR [employer]INKL[employer] SYSTEM documented in this encounter Plan of Treatment Not on file documented as of this encounter Visit Diagnoses Not on filedocumented in this encounter Care Teams Tire Shop Manager Relationship Specialty Start Date End Date Jimmie Robles MD [address] [place] [id number] PCP - General Pediatrics 02/22/14 documented as of this encounter
--- OUTSIDE RECORDS SUMMARY | 2025-03-14 13:40 | XMS_ITS | Encounter Summary ---
Author Organization [facility] Healthcare Address [address] [place] [address] Care Team Providers Care Cutter In Name Role Phone Don Arredondo MD Unavailable Yu Sahni NP Primary Care Provider Ernesto Summers MD Unavailable [phone] Agatha HARTMAN MD, Carlos M. Unavailable [phone] Reason for Visit * Reason Onset Date Comments Medical Question/Miscellaneous 02/10/2025 Encounter Details Date Type Department Care Team (Late st Contact Info) Description 02/10/2025 Telephone [facility] Primary Care at [address] [address] Yu Sahni, COLIN [address] [place] [id number] Medical Question/Miscellaneous Social History Tobacco Use Types Packs/Day Years Used Date Smoking Tobacco: Never Smokeless Tobacco: Never Alcohol Use Standard Drinks/Week Comments Not Currently 0 (1 standard drink = 0.6 oz pur e alcohol) [facility] Utilities Answer Date Recorded In the [...] often do you attend chur ch or presybeterian services? Never 10/06/2024 Do you belong to any clubs o r organizations such as scientologist groups, unions, fraternal or athletic groups, or school groups? No 10/06/2024 How often do you attend meet ings of the clubs or organizations you belong to? Never 10/06/2024 Are you , , di vorced, , never , or living with a partner? 10/06/2024 Overall Financial Resource Strain (CARDIA) Answe r Date Recorded How hard is it for you to pa y for the very basics like food, housing, medical care, and heating? Not hard at all 10/06/2024 PHQ-2 Answer Date Recorded PHQ-2 Total Score (If total score is 3 or more points, staff should administer the PHQ-9) 2 01/19/2025 [facility] - Occupational Stress Questionnaire Answer Date [...] place to sleep or slept in a longterm (including now)? No 05/14/2023 Housing Stability Vital Sign Answer Maximo e Recorded In the last 12 months, was t here a time when you were not able to pay the mortgage or rent on time? No 10/06/2024 In the past 12 months, how m any times have you moved where you were living? 0 10/06/2024 At any time in the past 12 m [facility], were you homeless or living in a longterm (including now)? No 10/06/2024 AUDIT-C Answer Date Recorded Q1: How often do you have a drink containing alcohol? Never 03/07/2025 Q2: How many drinks containi ng alcohol do you have on a typical day when you are drinking? Patient does not drink Q3: How often do you have si x or more drinks on one occasion? Never 03/07/2025 Personal Safety Answer Date Recorded Have you ever been in or are you currently in a harmful physical or emotional relationship or is someone making you feel afraid or unsafe? Denies 03/07/2025 Education Answer Date Recorded What is the highest level of school you have completed or the highest degree you have received? Some college, no degree 05/14/2023 Comments No Sex and Gender Information Value Date Recorded Sex Assigned at Not on file Legal Sex Female 1:09 PM EMERGENCY DETAIL DRIVER Gender Identity Female 03/22/2022 7:45 AM EMERGENCY DETAIL DRIVER Sexual Orientation Straight 03/22/2022 7: 45 AM EMERGENCY DETAIL DRIVER documented as of this encounter Functional Status * AUDIT-C Score Answer Date of Assessment Author 0 03/07/2025 7:06 AM CDMichelle Moyer RN * Question Answer Date of Assessment Author Q1: How often do you have a drink containing alcohol? Never 03/07/2025 7:06 AM Michelle Tran RN Q2: How many drinks containing alcohol do you have on a typical day when you are drinking? Patient does not drink 03/07/2025 7:06 AM Michelle Tran RN Q3: How often do you have six or more drinks on one occasion? Never 03/07/2025 7:06 AM Michelle Tran RN documented as of this encounter Miscellaneous Notes * Telephone Encounter - Radha Palm MA - 02/10/2025 12:09 PM CDT Medical Question/Miscellaneous Caller???s Concern: Patient is stating that the office professional that she was referred to does not take her insurance so she is asking if the doctor could please put in a new one.Please advise andthclauyou so much. Does message need to be routed? Yes-Action Needed documented in this encounter Plan of Treatment Upcoming Encounters Date Type Department Care Team (Late st Contact Info) Description 04/05/2025 12:00 PM EMERGENCY DETAIL DRIVER Hospital Encounter [facility] [address] [place] [address] Claritza Gross MD [address] [place] [id number] 04/05/2025 12:00 PM EMERGENCY DETAIL DRIVER - 04/05/2025 12:30 PM EMERGENCY DETAIL DRIVER Surgery [facility] [address] [place] [address] Claritza Gross MD [address] [place] [address] [address] [place] [address] COLONOSCOPY Scheduled Procedures Name Priority Associated Diagnoses Date/Ti me COLONOSCOPY Ulcerative colitis with complication, unspecified location (HCC) 04/05/2025 12:00 PM EMERGENCY DETAIL DRIVER documented as of this encounter Visit Diagnoses Not on filedocumented in this encounter Care Teams Cutter In Relationship Specialty Start Date End Date Yu Sahni SENIOR WEB ARCHITECT [address] [facility] [address] [place] [address] PCP - General Family Medicine 12/01/24 Don Arredondo MD [address] [place] [address] [address] [place] [address] Consulting Physician Gastroenterology 10/10/24 Ernesto Summers MD [address] [place] [address] Referring Physician Obstetrics and Gynecology 12/01/24 [place] [address] [facility] [address], [place] [address] Consulting Physician Neurology 12/01/24 documented as of this encounter
--- OUTSIDE RECORDS SUMMARY | 2025-03-14 13:40 | XMS_ITS | Clinical Summary ---
Author Organization [facility] Address [address] [place] [address] Care Team Providers Care Final Inspector Name Role Phone Don Arredondo MD Unavailable Yu Sahni NP Primary Care Provider Ernesto Summers MD Unavailable [phone] Agatha HARTMAN MD, Carlos M. Unavailable [phone] Allergies Active Allergy Reactions Criticality Noted Date Comments Topiramate Nausea & Vomiting High 02/27/2025 The patient also had palpitations and tremors Medications vit 56-[id number]-[id number]-dha 27mg iron- 800 mcg-250 mg capsuleIndication s: Take by mouth daily Active cyanocobalamin (Vitamin B-12) 100 mcg tablet Take 1 tablet (100 mcg total) by mouth daily Active cholecalciferol (VITAMIN D-3) 50,000 unit capsule Active lurasidone (LATUDA) 20 mg tablet Take 1 tablet (20 mg total) by mouth daily 05/22/19 25 Active medroxyPROGESTERo ne 150 mg/mL injection ADMINISTER 1 ML IN THE MUSCLE EVERY 3 MONTHS 08/02/19 25 Active mesalamine (CANASA) 1,000 mg suppositoryIndica tions:Ulcerative Proctitis Insert 1 suppository (1,000 mg total) into the rectum nightly 30 suppository 10/11/19 25 Active atomoxetine (STRATTERA) 60 mg capsule TAKE 1 CAPSULE BY MOUTH ONCE DAILY IN THE MORNING 10/13/19 25 Active hydrOXYzine (VISTARIL) 25 mg capsule Take 1 capsule (25 mg total) by mouth 2 (two) times a day as needed 10/13/19 25 Active tiZANidine (ZANAFLEX) 2 mg tablet 1 to 2 tablets at bedtime 60 tablet 5 11/02/19 25 Active mesalamine (PENTASA) 500 mg CR capsule Take 2 capsules (1,000 mg total) by mouth 3 (three) times a day 540 capsule 01/18/20 25 Active ondansetron ODT (ZOFRAN-ODT) 4 mg disintegrating tablet Take 1 tablet (4 mg total) by mouth every 8 (eight) hours as needed for nausea or vomiting 20 tablet 1 02/28/20 25 Active propranoloL (INDERAL) 20 mg tablet Take 1 tablet (20 mg total) by mouth 2 (two) times a day 60 tablet 5 02/28/20 25 026 Active rizatriptan SLICING MACHINE OPERATOR/TENDER (MAXALT-SLICING MACHINE OPERATOR/TENDER) 5 mg disintegrating tabletIndications :Migraine Take 1 tablet (5 mg total) by mouth once as needed for migraine May repeat in 2 hours if unresolved. Do not exceed 30 mg in 24 hours. 9 tablet 5 02/28/20 25 026 Active metoclopramide (REGLAN) 10 mg tablet Take 1 tablet (10 mg total) by mouth every 6 (six) hours 30 tablet 03/07/20 25 Active traMADoL (ULTRAM) 50 mg tablet Take 1 tablet (50 mg total) by mouth every 6 (six) hours 15 tablet 03/07/20 25 Active topiramate (TOPAMAX) 25 mg tablet 1 tablet BID for 2 weeks then increase to 2 tablets BID daily 120 tablet 5 12/08/19 25 025 Disconti nued(The rapy complete d) rizatriptan SLICING MACHINE OPERATOR/TENDER (MAXALT-SLICING MACHINE OPERATOR/TENDER) 10 mg disintegrating tabletIndications :Migraine Take 1 tablet (10 mg total) by mouth once as needed for migraine May repeat in 2 hours if unresolved. Do not exceed 30 mg in 24 hours. 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 Attention deficit hyperactivity disorder 025 Assessment & Plan (12/01/2024 3:42 PM CDT): -chronic, controlled -currently takes Strattera 60 mg daily -follows with psychiatry -patient reports struggling mostly with inattentiveness -patient reports their ADHD is stable with their current regimen -encourage patient to make lifestyle modifications such as to do lists and reminder alarms -continue current treatment plan with the specialists History of gestational diabetes 12/01/2024 Preventative health care 12/01/2024 Assessment & Plan (12/01/2024 3:42 PM CDT): - New or chronic worsening conditions: polyarthralgia - Mental health: anxiety/depression stable - Dental health: Up to date with regular dental care and cleaning. Discussed importance of regular tooth brushing, flossing, and dental visits. - Nutrition: Stressed importance of moderation in sodium/caffeine intake, saturated fat and cholesterol, caloric balance, sufficient intake of fresh fruits, vegetables - Exercise: Stressed the importance of regular exercise - Immunizations: Age and sex appropriate immunizations reviewed and offered - Cervical Cancer screening: up to date - control: medroxyprogesterone Orders: Thyroid Function [place]; Future Lipid panel; Future CBC with auto differential; Future Chronic migraine without aur a without status migrainosus, not intractable 12/01/2024 Assessment & Plan (12/01/2024 3:42 PM CDT): -chronic, suboptimally controlled -patient currently takes topiramate 15 mg b.i.d. -patient follows with Neurology -patient reports having migraine headache frequently -encourage patient to use p.r.n. migraine medication if needs so -continue current treatment plan Body mass index (BMI) of 20.0 to 20.9 in adult 0 12/01/2024 Assessment & Plan (01/19/2025 10:13 AM CDT): Wt Readings from Last 3 Encounters: 01/19/25 48.5 kg (107 lb) 01/13/25 48.5 kg (107 lb) 12/09/24 47.2 kg (104 lb) Body mass index is 20.23 kg/m . -Stable, at goal of >19 -Discussed recommendations for exercise at least 30 minutes moderate to vigorous exercise as tolerated most days of the week. (minimum 150 minutes weekly) -Discussed importance of well-balanced diet Assessment & Plan (12/01/2024 3:42 PM CDT): Wt Readings from Last 3 Encounters: 12/01/24 48.2 kg (106 lb 4.8 oz) 11/15/24 46.1 kg (101 lb 11.2 oz) 11/01/24 46.3 kg (102 lb) Body mass index is 19.44 kg/m . -Stable, at goal of >19 -Discussed recommendations for exercise at least 30 minutes moderate to vigorous exercise as tolerated most days of the week. (minimum 150 minutes weekly) -Discussed importance of well-balanced diet Polyarthralgia 12/01/2024 Assessment & Plan (12/01/2024 3:42 PM CDT): -Chronic, not at goal -Patient endorses longstanding history of arthritic pain/aching in multiple joints including most significant in hands -Patient reports she previously took ibuprofen/naproxen for pain relief, but is no longer able to take this due to her GI troubles -Encourage patient to reach out to GI provider to see if patient could utilize Voltaren gel -Will order rheumatology panel and referral to specialists -Continue current treatment plan Orders: Rheumatoid factor; Future Cyclic citrul peptide antibody, IgG; Future CRP (acute phase); Future Erythrocyte sedimentation rate; Future VICENTA screen w/rflx ILIA+dsDNA; Future Comprehensive metabolic panel; Future Diarrhea 10/06/2024 Ulcerative pancolitis without complication 10/05 Assessment & Plan (12/01/2024 3:42 PM CDT): -Chronic, controlled -Currently takes mesalamine -Follows with GI -Continue current treatment plan with specialists Assessment & Plan (11/15/2024 12:36 PM CDT): She was recently hospitalized for UC flare in the setting of salmonella infection Most recent labs from 10/2024 at the hospital showed mildly decreased total protein of 6.4 otherwise normal CMP, CBC Fecal calprotectin elevated 822 from 09/2024 Stool culture showed Salmonella, negative C diff 09/2024 CT abdomen pelvis with contrast 09/2023 showed inflammatory or infectious pancolitis Colonoscopy that time from 09/2024 showed normal TI, mucosal ulceration inflammation in the rectum and erythematous mucosa from sigmoid to ascending colon. Biopsy showed marked active colitis with moderate chronic change in the rectum, moderate active colitis with mild chronic change in the left colon, [id number] active colitis with minimal to mild chronic change in transverse and right colon. Patient was started on abx, oral and rectal mesalamine and recommended to repeat colonoscopy in 6 months Currently on Pentasa 1000 mg only taking 2-3 times a day due to work schedule. doing nightly suppository Certain things such as chili, and lemon pepper chicken tend to trigger diarrhea, otherwise better, hematochezia resolved, abdominal pain overall well controlled Has always had poor appetite, weight has been stable for the most part. Plan Continue Pentasa 1 g q.i.d. for total of 8 weeks for induction followed by 1 g t.i.d. for maintenance, I strongly encouraged her to take the medication four time a day Continue nightly Canasa suppository Repeat colonoscopy in 6 months to check for remission Continue to avoid NSAID use and trigger foods (high fat, processed foods, etc) Will discuss health care maintenance at next visit Hyperlipidemia LDL goal <100 06/20/2024 Assessment & Plan (12/01/2024 3:42 PM CDT): -chronic, controlled -currently takes controlled through diet and activity -Discussed importance of well-balanced diet -will recheck lab values -continue current treatment plan Orders: Lipid panel; Future History of seizure 01/27/2024 Assessment & Plan (12/01/2024 3:42 PM CDT): -Chronic, controlled -Follows with Neurology -Patient denies any recent seizure activity -Continue current treatment plan with specialists Anemia 12/07/2023 Overview (12/01/2024): severe anemia - Iron infusion referral faxed 12/27 Mixed anxiety and depressive disorder 07/23/2023 Assessment & Plan (12/01/2024 3:42 PM CDT): -chronic, controlled -patient currently takes Latuda 20 mg daily, hydroxyzine 25 mg b.i.d. as needed -Follows with psychiatry -patient denies any worsening of depressed mood, thoughts of harming themselves or others, or worsening anxiety -continue current treatment plan premature rupture of membranes 2 Syncopal seizure 03/28/2015 Menometrorrhagia 03/30/2014 Resolved Problems Problem Noted Date Diagnosed Date Resolved Date Premature delivery 12/01/2024 Overview (12/01/2024): 34 weeks - last one Hypotensive episode 12/01/2024 12/02/19 Overview (12/01/2024): multiple episodes - ambulance to hospital from work x 2 seen by cardiology Large for gestational age fe tus affecting management of mother 12/01/2024 12/01/2024 Overview (12/01/2024): 94th %tile Colitis 10/06/2024 12/01/2024 Abdominal pain 10/05/2024 12/01/2024 Altered mental status 01/27/20242024 Syncope 01/27/2024 12/01/2024 Lipid screening 01/27/2024 12/01/2024 SOB (shortness of breath) 01/27/2024 Chest pain 01/27/2024 12/01/2024 Gestational diabetes mellitus 01/07/2024 12/01/2024 Overview (12/01/2024): BS QID - seeing MFM every 2 weeks r/t LGA Mood disorder 07/23/2023 12/01/2024 Threatened 2023 12/02/19 25 care following vaginal delivery 01/18/2022 12/01/2024 Overview (01/20/2022): # ID: Afebrile. No signs/symptoms [...] # Disposition: Follow up task sent to [facility] scheduling pool. Desires discharge home today. Influenza A 07/11/2021 12/01/2024 Abdominal pain during 07/11/2021 12/01/2024 Nausea and vomiting during 07/10/2021 12/01/2024 Uterine contractions during 07/22/2020 12/01/2024 Overview (07/22/2020): 1. Labor: Consents signed and [...] COVID Test Status: Test sent on admission care following vaginal delivery 07/22/2020 01/18/2022 Overview [...] scheduled with primary OB. Continue routine care. GBS bacteriuria 01/25/2019 12/01/2024 Overview (03/19/2020): <100,000 in urine 12/27/19. Will need PCN in labor Chlamydia infection 01/25/2019 12/02/19 25 Overview (01/25/2019): D/w Dr. Akers who will arrange treatment tomorrow. Depression 03/30/2014 12/01/2024 Anxiety disorder 03/30/2014 12/01/2024 Poor weight gain (0-17) 03/30/201411/09 Encounters Date Type Department Care Team Description 03/07/2025 3:37 PM CDT - 03/07/2025 6:05 PM CDT Emergency [facility] Emergency Department [address] [place] [address] Right upper quadrant pain (Primary Dx) Discharge Disposition: Discharge to home or self care 03/07/2025 7:30 AM CDT - 03/07/2025 9:00 AM CDT Surgery [facility] Electrophysiology Lab [address] [place] [address] Leila Sinclair MD TILT TABLE EVALUATION 03/07/2025 6:12 AM CDT - 03/07/2025 9:44 AM CDT Hospital Encounter [facility] Electrophysiology Lab [address] [place] [address] Leila Sinclair MD Recurrent syncope Discharge Disposition: Discharge to home or self care 03/06/2025 1:30 PM CDT Office Visit [facility] Primary Care at [address] [place] [address] Jennifer Powell NP Pharyngitis, unspecified etiology (Primary Dx) 02/28/2025 Orders Only [facility] [address] [place] [address] [address] [place] [address] Niranjan Snider II, MD Chronic migraine without aura without status migrainosus, not intractable (Primary Dx) 02/27/2025 9:00 AM CDT Office Visit [facility] [address] [address] Niranjan Snider II, MD Chronic migraine without aura without status migrainosus, not intractable (Primary Dx) 02/27/2025 Telephone [facility] Neurology [address] [place] [phone] Gill Layne MA 02/27/2025 Telephone [facility] Neurology [address] [place] [phone] Gill Layne MA 02/14/2025 Results Follow-Up [facility] Primary Care at [address] [phone] Yu Sahni NP Urea nitrogen, urine, 24 hour, Volume and period, urine, 24 hour, Creatinine, urine, 24 hour, Additional followed-up results: 3 02/13/2025 Telephone [facility] [address] [address] Niranjan Snider II, MD Medication Problem 02/10/2025 Telephone [facility] Gastroenterology at [address] [place] [phone] Olga Humphreys 02/10/2025 Telephone [facility] Primary Care at [address] [phone] Yu Sahni, PROCESS MANUFACTURING ENGINEER Medical Question/Miscellan eous 02/08/2025 10:15 AM CDT - 02/08/2025 11:59 PM CDT Hospital Encounter [address] Polyuria Discharge Disposition: Discharge to home or self care 02/07/2025 8:45 AM CDT Therapy [facility] [place] [address] Henry Zuleta, PT Cervicalgia (Primary Dx) 02/07/2025 Results Follow-Up [facility] Primary Care at [address] [phone] Yu Sahni, PROCESS MANUFACTURING ENGINEER Comprehensive metabolic panel, Osmolality, urine, eGFR 02/06/2025 12:40 PM CDT Lab [address] Elevated LFTs; Frequency of urination 02/02/2025 Telephone [facility] Primary Care at [address] [phone] Yu Sahni, PROCESS MANUFACTURING ENGINEER Medical Question/Miscellan eous 02/01/2025 8:00 AM CDT Therapy [facility] [place] [address] Zack Vidal, PT Cervicalgia (Primary Dx) 01/30/2025 Telephone [facility] Primary Care at [address] [phone] Yu Sahni, PROCESS MANUFACTURING ENGINEER Test Results 01/29/2025 Orders Only [facility] Primary Care at [address] [phone] Yu Sahni, PROCESS MANUFACTURING ENGINEER Polyuria (Primary Dx) 01/25/2025 8:45 AM CDT Therapy [facility] [place] [address] Henry Zuleta, PT Cervicalgia (Primary Dx) 01/23/2025 10:00 AM CDT Therapy [facility] [place] [address] Zack Vidal, PT Cervicalgia (Primary Dx) 01/19/2025 9:30 AM CDT Office Visit [facility] Primary Care at [address] [phone] Yu Sahni, PROCESS MANUFACTURING ENGINEER Frequency of urination (Primary Dx); Polydipsia; Body mass index (BMI) of 20.0 to 20.9 in adult 01/19/2025 Orders Only [facility] Primary Care at [address] [phone] Yu Sahni, PROCESS MANUFACTURING ENGINEER Frequency of urination (Primary Dx); Polydipsia 01/19/2025 Telephone [facility] Primary Care at [address] [place] [address] Yu Sahni, PROCESS MANUFACTURING ENGINEER 01/17/2025 Telephone [facility] Gastroenterology at [address] [place] [address] Britney Carpenter LPN 01/17/2025 Telephone [facility] Cardiology [address] [place] [address] [place] [address] Leila Sinclair MD 01/16/2025 8:45 AM CDT Therapy [facility] Physical [facility] [place] [address] Henry Zuleta, PT Cervicalgia (Primary Dx) 01/16/2025 Telephone [facility] Primary Care at [address] [place] [address] Yu Sahni, PROCESS MANUFACTURING ENGINEER Medical Question/Miscellan eous 01/13/2025 4:00 PM CDT Ancillary Procedure [facility] Cardiology [address] [place] [address] [place] [address] Recurrent syncope 01/13/2025 3:00 PM CDT Office Visit [facility] Cardiology [address] [place] [address] [place] [address] Leila Sinclair MD Recurrent syncope (Primary Dx) 01/13/2025 8:45 AM CDT Therapy [facility] [place] [address] Henry Zuleta, PT Cervicalgia (Primary Dx) 01/13/2025 Results Follow-Up [facility] Cardiology [address] [place] [address] [place] [address] Leila Sinclair MD ECG 12 lead, MCT Mobile Cardiac Telemetry Event Monitor 01/13/[address] [facility] Scheduling [address] [place] [address] Meka Sidhu IM DOC 01/10/2025 Telephone [facility] Primary Care at [address] [place] [phone] Yu Sahni NP Medical Question/Miscellan eous 01/06/2025 1:45 PM CDT Therapy [facility] Therapy [facility] [place] [address] Zack Vidal, PT Cervicalgia (Primary Dx) 01/03/2025 1:45 PM CDT Therapy [facility] [place] [address] Zack Vidal, PT Cervicalgia (Primary Dx) 12/30/2024 9:30 AM CDT Therapy [facility] Physical Therapy [facility] [place] [address] Henry Zuleta, PT Cervicalgia (Primary Dx) 12/27/2024 11:15 AM CDT Therapy [facility] [place] [address] Henry Zuleta, PT Cervicalgia (Primary Dx) 12/23/2024 8:15 AM CDT Therapy [facility] [place] [address] Zack Vidal, PT Cervicalgia (Primary Dx) 12/20/2024 4:00 PM CDT Therapy [facility] [place] [address] Henry Zuleta, PT Cervicalgia (Primary Dx) 12/20/2024 Plan of Care Documentation [facility] [place] [address] from Last 3 Months Immunizations Immunization Administration Dates Next Due DTP 02/06/1998,1997 DTaP 12/15/2002,01/21/2000,10/19/1999 HPV, Quadrivalent 01/21/2013,12/26/2009 HPV9 02/13/2016 Hep A, Ped Unspecified 12/26/2009 Hep A, Pediatric 01/21/2013 Hep B, Adolescent or Pediatric 10/19/1999,1997,1997 HiB 10/19/1999,02/06/1998,1997 IPV 12/15/2002, 0,02/06/1998,10/17 Influenza, Live, Intranasal, Quadrivalent 01/21/2013 Influenza, Quadrivalent, Spl it, Preservative Free, Intramuscular 07/24/2020(Deferred: No longer needed),02/20/2017,02/13/2016 Influenza, Split 12/26/2009 MMR 07/24/2020(Deferred: No longer needed),05/25/2002,10/19/1999 Meningococcal B, OMV (Bexsero) 02/13/2016 Meningococcal MCV4P (Menactra) 02/13/2016 Meningococcal Polysaccharide (Menomune) 12/26/2009 Pneumococcal Conjugate 7-Valent 11/26/2000 Tdap 02/29/2024, 2,01/16/2017,12/26 Varicella 12/26/2009,01/21/2000 Surgical History Surgery Date Site/Laterality Comments FRACTURE SURGERY Right Elbow Medical History Medical History Date Comments Anxiety Mental disorder anxiety, no meds Hypertension Seizures (HCC) depression Syncope Shortness of breath Diabetes mellitus Anemia Menstrual problem Migraines Family History Medical History Relation Name Comments Learning disabilities Brother autism Muscular dystrophy Brother Diabetes Father Reinier Heart attack Father Reinier Migraines Father Reinier Arthritis Maternal Grandmother Jill Autoimmune disease Maternal Grandmother Jill l upus Cancer Maternal Grandmother Jill Diabetes Maternal Grandmother Jill Hyperlipidemia Maternal Grandmother Jill Hypertension Maternal Grandmother Jill Diabetes Mother Christopher Drug abuse Mother Christopher hypoglycemia Mother Christopher Diabetes Mother's Sister Mariposa Cancer Paternal Grandfather Diabetes Paternal Grandmother Maame Fibromyalgia Paternal Grandmother Maame Hyperlipidemia Paternal Grandmother Maame Stroke Paternal Grandmother Maame Relation Name Status Comments Brother Father Reinier Alive Maternal Grandfather Unknown Maternal Grandmother Jill Mother Christopher Alive Mother's Sister Mariposa Alive Paternal Grandfather Alive Paternal Grandmother Maame Social History Tobacco Use Types Packs/Day Years Used Date Smoking Tobacco: Never Smokeless Tobacco: Never Tobacco Cessation:Counseling Given: Not Answered Alcohol Use Standard Drinks/Week Comments Not Currently 0 (1 standard drink = 0.6 oz pur e alcohol) [facility] Utilities Answer Date Recorded In the past 12 months has e [employer], gas, oil, or water [employer] threatened to shut off services in your [...] often do you attend chur ch or mu-ism services? Never 10/06/2024 Do you belong to any clubs o r organizations such as muslim groups, unions, fraternal or athletic groups, or [...] staff should administer the PHQ-9) 2 01/19/2025 [facility] - Occupational Stress Questionnaire Answer Date Recorded [...] place to sleep or slept in a group home (including now)? No 05/14/2023 Housing Stability Vital Sign Answer Maximo e Recorded In the last 12 months, was t here a time when you were not able to pay the mortgage or rent on time? No 10/06/2024 In the past 12 months, how m any times have you moved where you were living? 0 10/06/2024 At any time in the past 12 m [facility], were you homeless or living in a group home (including now)? No 10/06/2024 AUDIT-C Answer Date [...] on file Legal Sex Female 1:09 PM BELLHOP SERVICE CAPTAIN Gender Identity Female 03/22/2022 7:45 AM BELLHOP SERVICE CAPTAIN Sexual Orientation Straight 03/22/2022 7: 45 AM BELLHOP SERVICE CAPTAIN Obstetrics History Para Term AB IAB SAB [...] Epidur al N Livin g 8 9 ANDRE ,GIRL JAIMEE TITUS scott, William John sa, MD Complications:None Delivery Location:[facility] Main C ampus ([facility] 58LD) 2021 35w 1d 0h 08m 0h 01m/0h 07m 2.49 kg (5 lb 7.8 oz) M Vag-S pont Epidur al Y Livin g 8 9 IRAJ MCKEON Matthe w John, MD Complications:Premature Rupt ure of Membranes,Rupture of Membranes > 18 hours Delivery Location:[facility] Main C ampus ([facility] 58LD) 4 SAB SAB Last Filed Vital Signs Vital Sign Reading Time Taken Comments Blood Pressure 124/76 03/07/2025 6:05 PM CDT Pulse 84 03/07/2025 6:05 PM CDT Temperature 36.8 C (98.2 F) 03/07/2025 2:48 PM CDT Respiratory Rate 18 03/07/2025 6:05 PM CDT Oxygen Saturation 98% 03/07/2025 6:05 PM CDT Inhaled Oxygen Concentration - - Weight 49.9 kg (110 lb) 03/07/2025 2:48 PM CDT Height 154.9 cm (5' 1) 03/07/2025 6:50 AM CDT Body Mass Index 20.78 03/07/2025 6:50 AM CDT Plan of Treatment Upcoming Encounters Date Type Department Care Team (Late st Contact Info) Description 04/05/2025 12:00 PM BELLHOP SERVICE CAPTAIN Hospital Encounter [facility] [address] [place] [address] Claritza Gross MD [address] [place] [address] [place] [address] 04/05/2025 12:00 PM BELLHOP SERVICE CAPTAIN - 04/05/2025 12:30 PM BELLHOP SERVICE CAPTAIN Surgery [facility] [address] [place] [address] Claritza Gross MD [address] [place] [address] COLONOSCOPY Scheduled Procedures Name Priority Associated Diagnoses Date/Ti me COLONOSCOPY Ulcerative colitis with complication, unspecified location (HCC) 04/05/2025 12:00 PM BELLHOP SERVICE CAPTAIN Health Maintenance Due Date Last Done Comments Cervical Cancer Screening 02/23/2021 02/24/2020 Influenza Vaccine (#1) 2025 7, 02/13/2016, 01/21/2013, Additional history exists Regular Well Visit/Exam 18-64 12/01/2025 12/01/2024, 12/01/2024 Depression Screening 01/19/2026 01/19/2025, 12/01/2024, 01/29/2024, Additional history exists DTaP/Tdap/Td Vaccine (9 - Td or Tdap) 02/28/2034 02/29/2024, 01/07/2022, 01/16/2017, Additional history exists Hepatitis B Screening Completed 10/19/1999 , 02/06/1998, 1997 Pneumococcal vaccine <65 Completed 11/26/2000 Varicella Vaccines Completed 12/26/2009, 01/21/2000 HPV Vaccines Completed 02/13/2016, 01/09, 12/26/2009 Hepatitis C Screening Completed 07/22/2020 Procedures Procedure Name Priority Date/Time Associated Diagnosis Comments URINALYSIS, MICROSCOPIC ONLY STAT 03/07/2025 5:32 PM CDT HCG, URINE, QUALITATIVE STAT 03/07/2025 5:32 PM CDT URINALYSIS AND REFLEX TO MICROSCOPIC AND CULTURE STAT 03/07/2025 5:32 PM CDT US GALLBLADDER ED 03/07/2025 4:38 PM CDT XR CHEST PA LATERAL 2 VIEWS ED 03/07/2025 4:31 PM CDT EGFR STAT 03/07/2025 2:52 PM CDT DIFFERENTIAL AUTO STAT 03/07/2025 2:5 2 PM CDT LIPASE STAT 03/07/2025 2:52 PM CDT COMPREHENSIVE METABOLIC PANEL STAT 03/07/2025 2:52 PM CDT CBC WITH AUTO DIFFERENTIAL STAT 03/07/2025 2:52 PM CDT TILT TABLE EVALUATION Routine 03/07/2025 8:46 AM CDT Recurrent syncope POCT HCG, URINE Routine 03/07/2025 7:15 AM CDT EGFR STAT 03/07/2025 7:14 AM CDT BASIC METABOLIC PANEL STAT 03/07/2025 7:14 AM CDT CBC WITHOUT DIFFERENTIAL STAT 03/07/2025 7:14 AM CDT POCT RAPID STREP Routine 03/06/2025 2:41 PM CDT Pharyngitis, unspecified etiology CHLORIDE, URINE, 24 HOUR RESULT Routine 02/08/2025 10:15 AM CDT Polyuria POTASSIUM, URINE, 24 HOUR RESULT Routine 02/08/2025 10:15 AM CDT Polyuria SODIUM, URINE, 24 HOUR RESULT Routine 02/08/2025 10:15 AM CDT Polyuria CREATININE, URINE, 24 HOUR RESULT Routine 02/08/2025 10:15 AM CDT Polyuria VOLUME AND PERIOD, URINE, 24 HOUR Routine 02/08/2025 10:15 AM CDT Polyuria UREA NITROGEN, URINE, 24 HOUR RESULT Routine 02/08/2025 10:15 AM CDT Polyuria CHLORIDE, URINE, 24 HOUR Routine 02/08/2025 10:15 AM CDT Polyuria POTASSIUM, URINE, 24 HOUR Routine 02/08/2025 10:15 AM CDT Polyuria SODIUM, URINE, 24 HOUR Routine 10:15 AM CDT Polyuria UREA NITROGEN, URINE, 24 HOUR Routine 02/08/2025 10:15 AM CDT Polyuria EGFR Routine 02/06/2025 12:40 PM CDT Elevated LFTs OSMOLALITY, URINE Routine 02/06/2025 12: 40 PM CDT Frequency of urination COMPREHENSIVE METABOLIC PANEL Routine 02/06/2025 12:40 PM CDT Elevated LFTs POCT HCG, URINE Routine 01/19/2025 1:58 PM CDT Frequency of urination POCT URINALYSIS DIPSTICK Routine 01/19/2025 9:34 AM CDT Frequency of urination MCT - MOBILE CARDIAC TELEMETRY EVENT MONITOR Routine 01/13/2025 4:13 PM CDT Recurrent syncope ECG 12-LEAD Routine 01/13/2025 3:04 PM CDT Recurrent syncope HEPATITIS C ANTIBODY Routine 07/22/2020 6:00 PM CDT PAP AND HIGH RISK HPV, REFLEX TO GENOTYPING Routine 02/24/2020 7:00 PM CDT from Last 3 Months or Most Recently Relevant to Health Maintenance Results * (ABNORMAL) Urinalysis reflex to microscopic and culture Urine (03/07/2025 5:32 PM CDT) Color, ur Straw Yellow Clarity, ur Turbid(A) Clear [facility] ([place]) Specific gravity, ur 1.016 1.003 - 1.030 [facility] ([place]) pH, urine 7.5 [facility] ([place]) Comment: Interpretive Data U rine pH is affected by diet, medications, systemic acid-base disturbances, and renal tubular function. pH may affect urinary stone formation. For example, urine pH below 6.0 may help reduce the tendency for calcium phosphate stones and pH greater than 6.0 may reduce the tendency for uric acid stone formation. Source: [facility] Current Interpretive Data was last revised on 2017 Protein, ur ql Negative Negative [facility] ([place]) Glucose, ur ql Negative Negative [facility] ([place]) Ketones, ur Negative Negative [facility] ([place]) Bilirubin, ur Negative Negative [facility] ([place]) Blood, ur Negative Negative [facility] ([place]) Urobilinogen, ur <2.0 <2.0 mg/dL [facility] ([place]) Nitrite, ur Negative Negative [facility] ([place]) Leukocyte esterase, ur 1+(A) Negative [facility] ([place]) UA reflex comment Reflex to microscopic UA will be performed. [facility] ([place]) Urine 03/07/2025 5:32 PM CDT 03/07/2025 5:37 PM CDT Rohan WERNER LAB MICROBIOLOGY - GENERAL ORDERABLES Final Result Performing Organization Address City/[facility]/ZIP Co de Phone Number KAYLA SPARKS ([place]) 1 [facility] Department [place] [address] * hCG, urine, qualitative (03/07/2025 5:32 PM CDT) HCG, ur Negative Negative Urine 03/07/2025 5:32 PM CDT 03/07/2025 5:37 PM CDT Rohan WERNER LAB URINE ORDERA BLES Final Result Performing Organization Address City/[facility]/ZIP Co de Phone Number KAYLA SPARKS ([place]) 1 [facility] Department [place] [address] * (ABNORMAL) Urinalysis, microscopic only (03/07/2025 5:32 PM CDT) WBC, ur 0-5 0 - 5 /HPF RBC, ur 0-2 0 - 2 /HPF [facility] ([place]) Epithelial cells, squamous, ur 6-10(A) 0 - 5 /HPF [facility] ([place]) Mucous, ur Present(A) [facility] A ([place]) Culture Reflex Comment Reflex conditions for urine culture (WBC >10) not met. [facility] Urine 03/07/2025 5:32 PM CDT 03/07/2025 5:37 PM CDT us Rohan WERNER LAB URINE ORDERA BLES Final Result Performing Organization Address City/State/[facility] Co de Phone Number KAYLA SPARKS ([place]) 1 [facility] Department [place] [address] * US Gallbladder (03/07/2025 4:38 PM CDT) Anatomical Region Laterality Modality Abdomen N/A Ultrasound 03/07/2025 5:45 PM CDT Impressions 03/07/2025 5:45 PM CDT 1. No gallstones or biliary ductal dilatation. 2. Small gallbladder polyps are seen. Follow-up ultrasound in one year can be obtained to ensure no progression. Electronically signed by: Eligio Linares M.D. Narrative 03/07/2025 5:45 PM CDT EXAMINATION: LIMITED ABDOMINAL SONOGRAM HISTORY: Right upper quadrant pain. COMPARISON: CT 09/27/2024 FINDINGS: Liver: The liver demonstrates a normal echotexture. No suspicious mass. Liver extends 15.5 cm. Normal hepatopedal flow. Gallbladder: The gallbladder demonstrates no stones. However, there are small polyps adherent to the wall. These measure 3 x 2 x 6 mm and 3 x 5 x 4 mm. Routine ultrasound can be obtained in one year for follow-up to ensure no significant growth. Bile Duct: There is no biliary ductal dilatation. Common bile duct measures 2 mm. Right Kidney: The right kidney demonstrates a normal echotexture and cortical medullary differentiation. No mass or hydronephrosis. Overall, the right kidney measures 9.8 x 5 x 3.8 cm. Pancreas: The visualized portions of the head and body of the pancreas are normal. Some obscuration of the pancreas by overlying bowel gas. Other Findings: There is no ascites visualized. Procedure Note Eligio Linares MD - 03/07/2025 EXAMINATION: LIMITED ABDOMINAL SONOGRAM HISTORY: Right upper quadrant pain. COMPARISON: CT 09/27/2024 FINDINGS: Liver: The liver demonstrates a normal echotexture. No suspicious mass. Liver extends 15.5 cm. Normal hepatopedal flow. Gallbladder: The gallbladder demonstrates no stones. However, there are small polyps adherent to the wall. These measure 3 x 2 x 6 mm and 3 x 5 x 4 mm. Routine ultrasound can be obtained in one year for follow-up to ensure no significant growth. Bile Duct: There is no biliary ductal dilatation. Common bile duct measures 2 mm. Right Kidney: The right kidney demonstrates a normal echotexture and cortical medullary differentiation. No mass or hydronephrosis. Overall, the right kidney measures 9.8 x 5 x 3.8 cm. Pancreas: The visualized portions of the head and body of the pancreas are normal. Some obscuration of the pancreas by overlying bowel gas. Other Findings: There is no ascites visualized. IMPRESSION: 1. No gallstones or biliary ductal dilatation. 2. Small gallbladder polyps are seen. Follow-up ultrasound in one year can be obtained to ensure no progression. Electronically signed by: Eligio Linares M.D. us Rohan WERNER IMG US PROCEDURE S Final Result * XR Chest Pa Lateral 2 Views (03/07/2025 4:31 PM CDT) Anatomical Region Laterality Modality Body, Chest N/A Computed Radiogr aphy 03/07/2025 5:18 PM CDT Impressions 03/07/2025 5:18 PM CDT No radiographic evidence of acute cardiopulmonary disease. Electronically signed by: Emelyn Marie M.D. Narrative 03/07/2025 5:18 PM CDT EXAMINATION: XR CHEST PA LATERAL 2 VIEWS ORDERING HEALTHCARE PROVIDER: ROHAN SLOAN HISTORY: right side lung pain TECHNIQUE: Frontal and lateral radiographs of the chest. COMPARISON: 03/21/2022 FINDINGS: LUNGS/PLEURA: No consolidation. No effusion or pneumothorax. HEART/MEDIASTINUM: The cardiomediastinal silhouette and pulmonary vasculature are normal. HARDWARE/LINES/TUBES: None. BONES: No acute findings. OTHER: No other acute findings. Procedure Note Emelyn Marie MD - 03/07/2025 EXAMINATION: XR CHEST PA LATERAL 2 VIEWS ORDERING HEALTHCARE PROVIDER: ROHAN SLOAN HISTORY: right side lung pain TECHNIQUE: Frontal and lateral radiographs of the chest. COMPARISON: 03/21/2022 FINDINGS: LUNGS/PLEURA: No consolidation. No effusion or pneumothorax. HEART/MEDIASTINUM: The cardiomediastinal silhouette and pulmonary vasculature are normal. HARDWARE/LINES/TUBES: None. BONES: No acute findings. OTHER: No other acute findings. IMPRESSION: No radiographic evidence of acute cardiopulmonary disease. Electronically signed by: Emelyn Marie M.D. Rohan WERNER IMG XR PROCEDURE S Final Result * eGFR (03/07/2025 2:52 PM CDT) eGFR >90 >=60 mL/min/1. 73 m2 Comment: Interpretive Data Reference Interval Normal >/= 90 mL/min/1.73m2 Mildly decreased* 60 - 89 mL/min/1.73m2 Mildly to moderately decreased 45 - 59 mL/min/1.73m2 Moderately to severely decreased 30 - 44 mL/min/1.73m2 Severely decreased 15 - 29 mL/min/1.73m2 Kidney Failure < 15 mL/min/1.73m2 *Relative to young adult level Estimated glomerular filtration rate is determined by the 2020 CKD-EPI equation recommended by the National Kidney Foundation (A Unifying Approach to GFR Estimation: Recommendations of the NKF-ASK Task Force on Reassessing the Inclusion of Race in Diagnosing Kidney Disease, JASN 2020). The CKD-EPI equation should not be used for patients with unstable renal function and has not been validated in children and those over 70. Current interpretive data was last reviewed 2021. Blood 03/07/2025 2:52 PM CDT 03/07/2025 2:57 PM CDT us Jose Miller MD LAB BLOOD ORDERABLES Final Result [facility] ([place] 1 [facility] Department [place] [address] * Differential, auto (03/07/2025 2:52 PM CDT) Neutrophil abs 2.38 1.50 - 6.50 K/cumm Imm gran abs 0.02 0.00 - 0.10 K/cumm [facility] ([place]) Lymphocyte abs 2.02 0.80 - 3.30 K/cumm [facility] ([place]) Monocyte abs 0.53 0.20 - 0.80 K/cumm [facility] ([place]) Eosinophil abs 0.09 0.00 - 0.50 K/cumm [facility] ([place]) Basophil abs 0.07 0.00 - 0.10 K/cumm [facility] ([place]) Neutrophil pct 46.5 % [facility] ([place]) Comment: Interpretive Data Percent cell count reference ranges are not reported, since discordance with absolute values may lead to misinterpretation of CBC data. Current Interpretive Data was last revised on 2017. Imm gran pct 0.4 % [facility] ([place]) Comment: Interpretive Data Percent cell count reference ranges are not reported, since discordance with absolute values may lead to misinterpretation of CBC data. Current Interpretive Data was last revised on 2017. Lymphocyte pct 39.5 % [facility] ([place]) Comment: Interpretive Data Percent cell count reference ranges are not reported, since discordance with absolute values may lead to misinterpretation of CBC data. Current Interpretive Data was last revised on 2017. Monocyte pct 10.4 % [facility] ([place]) Comment: Interpretive Data Percent cell count reference ranges are not reported, since discordance with absolute values may lead to misinterpretation of CBC data. Current Interpretive Data was last revised on 2017. Eosinophil pct 1.8 % [facility] ([place]) Comment: Interpretive Data Percent cell count reference ranges are not reported, since discordance with absolute values may lead to misinterpretation of CBC data. Current Interpretive Data was last revised on 2017. Basophil pct 1.4 % [facility] ([place]) Comment: Interpretive Data Percent cell count reference ranges are not reported, since discordance with absolute values may lead to misinterpretation of CBC data. Current Interpretive Data was last revised on 2017. Blood 03/07/2025 2:52 PM CDT 03/07/2025 2:57 PM CDT us Jose Miller MD LAB BLOOD ORDERABLES Final Result [facility] ([place]) 1 [facility] Department [place] [address] * CBC with auto differential (03/07/2025 2:52 PM CDT) WBC 5.11 3.80 - 9.90 K/cumm Hgb 13.4 11.9 - 15.5 g/dL [facility] ([place]) Hct 39.4 35.6 - 45.5 % [facility] ([place]) Plt 341 150 - 400 K/cumm [facility] ([place]) MPV 9.4 9.1 - 12.3 fL [facility] ([place]) RBC 4.48 3.90 - 5.20 M/cumm [facility] ([place]) MCV 87.9 81.3 - 96.4 fL [facility] ([place]) MCH 29.9 27.1 - 33.3 pg [facility] ([place]) MCHC 34.0 32.3 - 35.7 g/dL [facility] ([place]) RDW CV 12.1 11.1 - 14.9 % [facility] ([place]) RDW SD 39.1 35.7 - 48.1 fL [facility] ([place]) NRBC abs 0.00 0.00 - 0.01 K/cumm [facility] ([place]) Blood 03/07/2025 2:52 PM CDT 03/07/2025 2:57 PM CDT Jose Miller MD LAB BLOOD ORDERABLES Final Result Performing Organization Address [facility]/ZIP Co de Phone Number KAYLA [facility] ([place]) 1 [facility] [employer] [place] [address] * Lipase (03/07/2025 2:52 PM CDT) Lipase 39 10 - 99 Units/L Blood 03/07/2025 2:52 PM CDT 03/07/2025 2:57 PM CDT Jose Miller MD LAB BLOOD ORDERABLES Final Result Performing Organization Address [facility] de Phone Number [facility] ([place]) 1 [place] [address] * (ABNORMAL) Comprehensive metabolic panel (03/07/2025 2:52 PM CDT) Sodium 139 135 - 145 mmol/L Potassium, pl 3.8 3.3 - 4.9 mmol/L [facility] ([place]) Chloride 106 97 - 110 mmol/L [facility] ([place]) CO2 24 22 - 32 mmol/L [facility] ([place]) Anion gap 9 2 - 15 mmol/L [facility] ([place]) BUN 7 6 - 25 mg/dL [facility] ([place]) Creatinine 0.67 0.60 - 1.10 mg/dL [facility] ([place]) Glucose 73 70 - 199 mg/dL [facility] ([place]) Comment: Interpretive Data Fasting glucose >/= 126 mg/dl is diagnostic for diabetes. Fasting is defined as no caloric intake for at least 8 hours. Fasting glucose between 100 mg/dl to 125 mg/dl is diagnostic of prediabetes. In a patient with classic symptoms of hyperglycemia or hyperglycemic crisis, a random glucose >/= 200 mg/dl is diagnostic for diabetes. In the absence of unequivocal hyperglycemia, results should be confirmed by repeat testing. The classification and Diagnosis of Diabetes Diabetes Care 2021; 46: S19-S40. Current interpretive data was last revised 2022. Calcium 9.4 8.5 - 10.3 mg/dL [facility] ([place]) Bilirubin, total 0.3 0.1 - 1.2 mg/dL [facility] ([place]) Protein, pl 7.2 6.5 - 8.5 g/dL [facility] ([place]) Albumin 4.5 3.5 - 5.0 g/dL [facility] ([place]) Alk phos 86 40 - 130 Units/L [facility] ([place]) ALT 47(H) 7 - 45 Units/L [facility] ([place]) AST 33 10 - 45 Units/L [facility] ([place]) Blood 03/07/2025 2:52 PM CDT 03/07/2025 2:57 PM CDT Jose Miller MD LAB BLOOD ORDERABLES Final Result [facility] ([place]) 1 [facility] Department [place] [address] * TILT TABLE EVALUATION (03/07/2025 8:46 AM CDT) Anatomical Region Laterality Modality X-Ray Angiograph y Narrative 03/07/2025 8:50 AM CDT Table formatting from the original result was not included. Tilt Table Test Patient Name: Radha Mckeon Patient date of : 1995 Date of Procedure: 03/07/25 OPERATORS: 1. Leila Sinclair MD PROCEDURES: 1.Tilt Table Test TOTAL CONTRAST:0 cc TOTAL FLUROSCOPY TIME: 0.00 Minutes MEDICATIONS: none INDICATION FOR PROCEDURE: Syncope PATIENT HISTORY: Ms. Mckeon is referred for tilt table testing for further evaluation of long-standing episodes of pre-syncope and syncope. PROCEDURE DESCRIPTION: Informed consent was obtained in writing prior to the procedure after full detailed explanation of risks, benefits and alternatives and all of the patient's questions were answered. The patient was brought to the cardiac EP lab in a fasting state. The patient was kept on continuous ECG, blood pressure and oxygen saturation monitoring throughout the entire procedure. A procedural time-out was performed per protocol to confirm patient identity and procedure to be performed. The patient was placed on the tilt table and monitoring electrodes placed. HR and BP were measured in 2 minute increments. She was brought to 60 degrees. See table below. Tilt Table Testing Time Degree HR BP Symptoms ECG 8:04 0 84 117/76 none NSR 8:06 0 83 113/77 NSR 8:08 0 89 115/78 NSR 8:10 am 60 89 120/83 none NSR 8:12 am 60 86 116/78 NSR 8:14 am 60 94 124/83 NSR 8:16 am 60 96 125/83 NSR 8:18 am 60 93 114/82 NSR 8:20 am 60 97 135/84 NSR with PVCs 8:22 am 60 93 129/87 NSR 8:24 am 60 94 119/86 Feels tired NSR 8:26 am 60 98 125/85 NSR 8:28 am 60 99 132/88 NSR 8:30 am 60 98 124/92 Still tired, no dizziness lightheadedness NSR 8:32 am 60 95 124/81 NSR 8:34 am 60 93 123/85 NSR 8:36 am 60 91 129/86 Resting NSR 8:38 am 60 84 141/86 NSR 8:40 am 60 99 128/85 No symptoms NSR 8:42 am 0 89 118/73 NSR 8:44 am 0 89 115/76 NSR IMPRESSION No evidence of orthostatic hypotension or postural orthostatic tachycardia syndrome Test did not recreate syncope RECOMMENDATIONS: Continue salt and oral fluids Continue to avoid triggers No evidence of an arrhythmia Attestation I was present for the entire procedure and prepared this report. Leila Sinclair MD us Leila Sinclair MD CV ELECTROPHYSIO LOGY PROCS Final Result * POCT hCG, urine (03/07/2025 7:15 AM CDT) HCG, ur, POC Negative Negative Lot Number [id number] QC Backgroud Clear Acceptable QC Control Line Acceptable Urine 03/07/2025 7:15 AM CDT Leila Sinclair MD POINT OF CARE TE ST ORDERABLES Final Result * eGFR (03/07/2025 7:14 AM CDT) Pathologist [facility] eGFR >90 >=60 mL/min/1. 73 m2 Comment: Interpretive Data Reference Interval Normal >/= 90 mL/min/1.73m2 Mildly decreased* 60 - 89 mL/min/1.73m2 Mildly to moderately decreased 45 - 59 mL/min/1.73m2 Moderately to severely decreased 30 - 44 mL/min/1.73m2 Severely decreased 15 - 29 mL/min/1.73m2 Kidney Failure < 15 mL/min/1.73m2 *Relative to young adult level Estimated glomerular filtration rate is determined by the 2020 CKD-EPI equation recommended by the National Kidney Foundation (A Unifying Approach to GFR Estimation: Recommendations of the NKF-ASK Task Force on Reassessing the Inclusion of Race in Diagnosing Kidney Disease, JASN 2020). The CKD-EPI equation should not be used for patients with unstable renal function and has not been validated in children and those over 70. Current interpretive data was last reviewed 2021. Blood 03/07/2025 7:14 AM CDT 03/07/2025 7:38 AM CDT Leila Sinclair MD LAB BLOOD ORDERA BLES Final Result [facility] [address] [facility] Department [place] [address] * CBC without differential (03/07/2025 7:14 AM CDT) Pathologist [facility] WBC 4.89 3.80 - 9.90 K/cumm Hgb 14.1 11.9 - 15.5 g/dL [facility] Hct 41.5 35.6 - 45.5 % [facility] Plt 358 150 - 400 K/cumm [facility] MPV 9.6 9.1 - 12.3 fL [facility] RBC 4.75 3.90 - 5.20 M/cumm [facility] MCV 87.4 81.3 - 96.4 fL [facility] MCH 29.7 27.1 - 33.3 pg [facility] MCHC 34.0 32.3 - 35.7 g/dL [facility] RDW CV 12.1 11.1 - 14.9 % [facility] RDW SD 38.8 35.7 - 48.1 fL [facility] NRBC abs 0.00 0.00 - 0.01 K/cumm [facility] Blood 03/07/2025 7:14 AM CDT 03/07/2025 7:14 AM CDT Leila Sinclair MD LAB BLOOD ORDERA BLES Final Result [facility] [address] [facility] Department [place] [address] * Basic metabolic panel (03/07/2025 7:14 AM CDT) Sodium 140 135 - 145 mmol/L Potassium, pl 3.8 3.3 - 4.9 mmol/L [facility] Chloride 106 97 - 110 mmol/L [facility] CO2 23 22 - 32 mmol/L [facility] Anion gap 11 2 - 15 mmol/L [facility] BUN 7 6 - 25 mg/dL [facility] Creatinine 0.80 0.60 - 1.10 mg/dL [facility] Glucose 78 70 - 199 mg/dL [facility] Comment: Interpretive Data Fasting glucose >/= 126 mg/dl is diagnostic for diabetes. Fasting is defined as no caloric intake for at least 8 hours. Fasting glucose between 100 mg/dl to 125 mg/dl is diagnostic of prediabetes. In a patient with classic symptoms of hyperglycemia or hyperglycemic crisis, a random glucose >/= 200 mg/dl is diagnostic for diabetes. In the absence of unequivocal hyperglycemia, results should be confirmed by repeat testing. The classification and Diagnosis of Diabetes Diabetes Care 202; 46: S19-S40. Current interpretive data was last revised 2022. Calcium 9.3 8.5 - 10.3 mg/dL [facility] Blood 03/07/2025 7:14 AM CDT 03/07/2025 7:14 AM CDT Leila Sinclair MD LAB BLOOD ORDERA BLES Final Result Performing Organization Address City/[facility]/ZIP Co de Phone Number [facility] [address] [facility] [place] [address] * POCT rapid strep A (03/06/2025 2:41 PM CDT) Rapid Strep A, POC Negative Negative Swab 03/06/2025 2:41 PM CDT Jennifer Powell PROCESS MANUFACTURING ENGINEER POINT OF CARE TEST ORDER MEE Final Result * Volume and period, urine, 24 hour (02/08/2025 10:15 AM CDT) Volume, ur 425 mL Period, Urine Collection 1,440 min [facility]LA SPARKS ([place]) Urine 02/08/2025 10:1 5 AM CDT 02/08/2025 1:24 PM CDT Yu Sahni PROCESS MANUFACTURING ENGINEER LAB URINE ORDERABLES Fi nal Result Performing Organization Address City/[facility]/ZIP Co de Phone Number KAYLA CLARE ([place]) 1 [facility] Department [place] [address] * Urea nitrogen, urine, 24 hour (02/08/2025 10:15 AM CDT) Urea nitrogen, 24 hr ur 5 5 - 20 g/24H Comment:Testing performed by : [facility], [address] [place] [address], [place]., [address] Urine 02/08/2025 10:1 5 AM CDT 02/08/2025 4:14 PM CDT Yu Sahni NP LAB URINE ORDERABLES Fi nal Result K[facility]LA SPARKS ([place]) 1 [facility] [employer] [place] [address] * Sodium, urine, 24 hour (02/08/2025 10:15 AM CDT) Sodium, 24 hr ur 79 40 - 220 mmol/24H [facility] ([place]) Urine 02/08/2025 10:1 5 AM CDT 02/08/2025 1:24 PM CDT Yu Sahni NP LAB URINE ORDERABLES Fi nal Result Performing Organization Address [facility] Co de Phone Number KAYLA SPARKS ([place]) 1 [facility] [employer] [place] [address] * (ABNORMAL) Potassium, urine, 24 hour (02/08/2025 10:15 AM CDT) Potassium, 24 hr ur 18(L) 25 - 125 mmol/24H [facility] ([place]) Urine 02/08/2025 10:1 5 AM CDT 02/08/2025 1:24 PM CDT Yu Sahni NP LAB URINE ORDERABLES Fi nal Result Performing Organization Address [facility] Co de Phone Number KAYLA SPARKS ([place]) 1 [facility] [employer] [place] [address] * Creatinine, urine, 24 hour (02/08/2025 10:15 AM CDT) Creatinine, 24 hr, ur 0.8 0.6 - 1.5 g/24H [facility] ([place]) Urine 02/08/2025 10:1 5 AM CDT 02/08/2025 1:24 PM CDT Yu Sahni NP LAB URINE ORDERABLES Fi nal Result KAYLA SPARKS ([place]) 1 [facility] [employer] [place] [address] * Chloride, urine, 24 hour (02/08/2025 10:15 AM CDT) Chloride, 24 hr ur 71 40 - 250 mmol/24H [facility] Urine 02/08/2025 10:1 5 AM CDT 02/08/2025 1:24 PM CDT Yu Sahni NP LAB URINE ORDERABLES Fi nal Result Performing Organization Address [facility] Co de Phone Number KAYLA SPARKS ([place]) 1 [facility] [employer] [place] [address] * eGFR (02/06/2025 12:40 PM CDT) eGFR >90 >=60 mL/min/1. 73 m2 Comment: Interpretive Data Reference Interval Normal >/= 90 mL/min/1.73m2 Mildly decreased* 60 - 89 mL/min/1.73m2 Mildly to moderately decreased 45 - 59 mL/min/1.73m2 Moderately to severely decreased 30 - 44 mL/min/1.73m2 Severely decreased 15 - 29 mL/min/1.73m2 Kidney Failure < 15 mL/min/1.73m2 *Relative to young adult level Estimated glomerular filtration rate is determined by the 2020 CKD-EPI equation recommended by the National Kidney Foundation (A Unifying Approach to GFR Estimation: Recommendations of the NKF-ASK Task Force on Reassessing the Inclusion of Race in Diagnosing Kidney Disease, JASN 2020). The CKD-EPI equation should not be used for patients with unstable renal function and has not been validated in children and those over 70. Current interpretive data was last reviewed 2021. Blood 02/06/2025 12:4 0 PM CDT 02/06/2025 1:36 PM CDT us Yu Sahni NP LAB BLOOD ORDERABLES Fi nal Result Performing Organization Address City/[facility]/ZIP Co de Phone Number KAYLA SPARKS ([place]) 1 [facility] Department [place] [address] * Osmolality, urine (02/06/2025 12:40 PM CDT) Osmo, ur 877 mOsm/kg Comment:Testing performed by : [facility], [address] [place]., [address] Urine 02/06/2025 12:4 0 PM CDT 02/06/2025 8:19 PM CDT Yu Sahni NP LAB URINE ORDERABLES Fi nal Result Performing Organization Address [facility] Co de Phone Number KAYLA SPARKS ([place]) 1 [facility] Department [place] [address] * (ABNORMAL) Comprehensive metabolic panel (02/06/2025 12:40 PM CDT) Pathologist [facility] Sodium 137 135 - 145 mmol/L [facility] ([place]) Potassium, pl 3.4 3.3 - 4.9 mmol/L [facility] ([place]) Chloride 105 97 - 110 mmol/L [facility] ([place]) CO2 20(L) 22 - 32 mmol/L [facility] ([place]) Anion gap 12 2 - 15 mmol/L [facility] ([place]) BUN 8 6 - 25 mg/dL [facility] ([place]) Creatinine 0.60 0.60 - 1.10 mg/dL [facility] ([place]) Glucose 90 70 - 199 mg/dL [facility] ([place]) Comment: Interpretive Data Fasting glucose >/= 126 mg/dl is diagnostic for diabetes. Fasting is defined as no caloric intake for at least 8 hours. Fasting glucose between 100 mg/dl to 125 mg/dl is diagnostic of prediabetes. In a patient with classic symptoms of hyperglycemia or hyperglycemic crisis, a random glucose >/= 200 mg/dl is diagnostic for diabetes. In the absence of unequivocal hyperglycemia, results should be confirmed by repeat testing. The classification and Diagnosis of Diabetes Diabetes Care 202; 46: S19-S40. Current interpretive data was last revised 2022. Calcium 9.5 8.5 - 10.3 mg/dL [facility] ([place]) Bilirubin, total 0.4 0.1 - 1.2 mg/dL [facility] ([place]) Protein, pl 7.2 6.5 - 8.5 g/dL [facility] ([place]) Albumin 4.6 3.5 - 5.0 g/dL [facility] ([place]) Alk phos 82 40 - 130 Units/L [facility] ([place]) ALT 23 7 - 45 Units/L [facility] ([place]) AST 17 10 - 45 Units/L [facility] ([place]) Blood 02/06/2025 12:4 0 PM CDT 02/06/2025 1:36 PM CDT Yu Sahni NP LAB BLOOD ORDERABLES Fi nal Result [facility] ([place]) 1 [facility] Department [place] [address] * POCT hCG, urine (01/19/2025 1:58 PM CDT) HCG, ur, POC Negative Negative Lot Number [id number] QC Backgroud Clear Acceptable QC Control Line Acceptable Urine 01/19/2025 1:58 PM CDT Yu Sahni NP POINT OF CARE TEST GREG BROWN Final Result * (ABNORMAL) POCT urinalysis dipstick (01/19/2025 9:34 AM CDT) Color, Urine, POC Dark Yellow Clarity, ur, POC Cloudy(A) Clear Glucose, ur, POC Negative Negative Bilirubin, ur, POC Negative Negative Ketones, ur, POC Negative Negative Specific [place], POC 1.030 1.003 - 1.030 Blood, ur, POC Large(A) Negative pH, ur, POC 6.0 5.0 - 8.0 Protein, ur, POC 30.(A) Negative Urobilinogen, urine, POC 0.2 0.2 - 1.0 mg/dL Nitrite, ur, POC Negative Negative Leukocytes, ur, POC Negative Negative Lot Number [id number] Urine 01/19/2025 9:34 AM CDT Yu Sahni NP POINT OF CARE TEST GREG BROWN Final Result * [facility] Mobile Cardiac Telemetry Event Monitor (01/13/2025 4:13 PM CDT) Anatomical Region Laterality Modality Electrocardiogra phy 01/13/2025 4:15 PM CDT Narrative 02/13/2025 9:55 AM CDT [facility] [place] [address] CARDIAC EVENT MONITOR REPORT Patient Name: RADHA MCKEON G : 1995 (29y 8m) Sex: F Study Date: 01/13/2025 04:15:22 PM Ht(Inch): Wt(Lb): BSA: Tech: Location: [facility] Order Provider: LEILA SINCLAIR BMI: Ref Provider: LEILA SINCLAIR PROCEDURES: Event Report: [facility] MOBILE CARDIAC TELEMETRY EVENT MONITOR [[id number]]. Enrollment Period: 2025-01-13 00:00:00 through 2025-02-11 00:00:00. Location: [facility]. INDICATIONS: R55 Syncope and collapse. FINDINGS: Event Data: Min Rate: 64 BPM Min Rate Timestamp: 2025-01-19 05:18:00 Max Rate: 162 BPM Max Rate Timestamp: 2025-01-22 15:08:00 Mean Rate: 93 BPM SIGNIFICANT PAUSES: 0 >3 sec SUMMARY: The patient's monitoring period was 01/13/2025 - 02/11/2025. Baseline sample showed Sinus Rhythm with a heart rate of 78.9 bpm. There were 0 critical, 0 serious, and 28 stable events that occurred. CONCLUSIONS: 1. The PDF can be found in the Epic Patient chart. Please go to the Cardiology tab, click on the holter or event exam. Scroll to bottom where the ORDER-LEVEL Documents reside and click the blue link to the pdf. 2. The predominant rhythm was Sinus Rhythm. Tachy 29% per computer. *The Maximum Heart Rate recorded was 162 BPM, 03:08 PM 01/22, the Minimum Heart Rate recorded was 64 BPM, 05:18 AM 01/19 and the Average Heart Rate was 93 BPM. *There were 3,829 VE beats with a burden of <1 %. *There were 469 SVE beats with a burden of <1 %. *There were 28 manually detected events. Symptoms include: shortness of breath, light-headedness, chest pain, fast heartbeat, dizziness. Symptoms correlate with NSR or sinus tachycardia+/- PVCs. HR Range 79-142bpm. Electronically Signed By: Radha Riojas M.D. 02/13/2025 9:45:25 AM CDT Procedure Note Radha Riojas MD - 02/13/2025 [facility] [place] [address] [place] [address] CARDIAC EVENT MONITOR REPORT Patient Name: RADHA MCEKON G : 1995 (29y 8m) Sex: F Study Date: 01/13/2025 04:15:22 PM Ht(Inch): Wt(Lb): BSA: Tech: Location: [facility] Order Provider: LEILA SINCLAIR BMI: Ref Provider: LEILA SINCLAIR PROCEDURES: Event Report: [facility] MOBILE CARDIAC TELEMETRY EVENT MONITOR [[id number]]. Enrollment Period: 2025-01-13 00:00:00 through 2025-02-11 00:00:00. Location: [facility]. INDICATIONS: R55 Syncope and collapse. FINDINGS: Event Data: Min Rate: 64 BPM Min Rate Timestamp: 2025-01-19 05:18:00 Max Rate: 162 BPM Max Rate Timestamp: 2025-01-22 15:08:00 Mean Rate: 93 BPM SIGNIFICANT PAUSES: 0 >3 sec SUMMARY: The patient's monitoring period was 01/13/2025 - 02/11/2025.Baseline sample showed Sinus Rhythm with a heart rate of 78.9 bpm. There were 0 critical,0 serious, and 28 stable events that occurred. CONCLUSIONS: 1. The PDF can be found in the [facility] Patient chart. Please go to theCardiology tab, click on the holter or event exam. Scroll to bottom where the ORDER-LEVELDocuments reside and click the blue link to the pdf. 2. The predominant rhythm was Sinus Rhythm. Tachy 29% per computer. *The Maximum Heart Rate recorded was 162 BPM, 03:08 PM 01/22, the MinimumHeart Rate recorded was 64 BPM, 05:18 AM 01/19 and the Average Heart Rate was 93BPM. *There were 3,829 VE beats with a burden of <1 %. *There were 469 SVE beats with a burden of <1 %. *There were 28 manually detected events. Symptoms include: shortness ofbreath, light-headedness, chest pain, fast heartbeat, dizziness. Symptomscorrelate with NSR or sinus tachycardia+/- PVCs. HR Range 79-142bpm. Electronically Signed By: Radha Riojas M.D. 02/13/2025 9:45:25 AM CDT Leila Sinclair MD CV CARDIAC SERVI HUMBERTO PROCEDURES Final Result * ECG 12 lead (01/13/2025 3:04 PM CDT) us Leila Sinclair MD ECG ORDERABLES Edited Result - Final * Hepatitis C antibody (07/22/2020 6:00 PM CDT) Hep C Ab Nonreactive Nonreactive KAYLA [facility] Comment:Antibodies to HCV no t detected. Does NOT exclude the possibility of recent exposure to HCV. Blood specimen (specimen) 07/22/2020 6:00 PM CDT 07/22/2020 6:28 PM CDT us Dre Ochoa MD LAB MICROBIO LOGY - GENERAL ORDERABLES Edited Result - Final [facility] Department [place] [address] * Pap and High Risk HPV, reflex to Genotyping (02/24/2020 7:00 PM CDT) 02/24/2020 7:00 PM CDT 02/27/2020 2:21 AM CDT Narrative 03/02/2020 10:29 AM CDT EPIC results best viewed via link to PDF [facility] [place] [address] CYTOPATHOLOGY REPORT FINAL WITH ADDENDUM Patient Name: RADHA MCKEON Gender: Dejan : 1995 (Age: 24) Address: [place] [address] Hospital #: [id number] Service: Obstetrics Location: [facility] Patient Type: [facility] OP In Bed Taken: 02/24/2020 Received: [...] results will be issued as an addendum. [facility]/03/01/2020 15:25 By this signature, I attest [...] 68. This HPV test was performed at [facility] in [place], [place] utilizing the Gen-Probe Aptima assay. By this signature, I attest that the above diagnosis is based upon my personal examination of the slides(and/or other material indicated in the diagnosis). Mayo Stewart DO Report Electronically Reviewed and Signed Out By Mayo Stewart DO 03/08/2020 08:53:49 The HPV test was performed by [facility], [address] [place] [address]. Report Images and scanned documents, if included only viewable in PDF version The performance characteristics of some immunohistochemical stains, in-situ hybridization and fluorescence in-situ hybridization tests and immunophenotyping by flow cytometry cited in this report (if any) were determined by the Surgical Pathology Department at [facility] as part of an ongoing clinical quality rn program and in compliance with federally mandated [...] determined by the Surgical Pathology Department of [facility]. It has not been cleared or approved by the U. S. Food and Drug Administration. Becki Dubon MD LAB CYTOLOGY ORDERABLES Final Result from Last 3 Months or Most Recently Relevant to Health Maintenance Insurance [facility] Member Subscriber Plan / Payer (Ef fective 2019-Present) Name:Radha Mckeon Relation to Subscriber:Self Name:Radha Mckeon Payer ID:[id number] (NAIC) Type:MEDICAID RISK OTHER Address: [address] [id number] Advance Directives For more information, please contact: [phone] * Full Code (Latest Code Status on File) Date Activated Date Inactivated Comments 10/07/2024 11:05 AM 10/10/2024 8:41 PM * Full Code Date Activated Date Inactivated Comments 10/05/2024 11:26 PM 10/07/2024 11:05 AM * Full Code Date Activated Date Inactivated Comments 2023 4:04 PM 05/14/2023 9:14 PM * Full Code Date Activated Date Inactivated Comments 01/19/2022 12:00 AM 01/20/2022 5:29 PM * Full Code Date Activated Date Inactivated Comments 01/17/2022 10:34 PM 01/19/2022 12:00 AM Full CPR in case of cardiopulmonary arrest Care Teams Final Inspector Relationship Specialty Start Date End Date Yu Sahni NP [address] [place] [address] [place] [address] PCP - General Family Medicine 12/01/24 Don Arredondo MD [address] [place] [address] [address] [place] [address] Consulting Physician Gastroenterology 10/10/24 Ernesto Summers MD [address] [place] [address] Referring Physician Obstetrics and Gynecology 12/01/24 [place] [address] [place] [facility] [address] [address] Consulting Physician Neurology 12/01/24
--- OUTSIDE RECORDS SUMMARY | 2025-03-14 13:40 | XMS_ITS | Encounter Summary ---
Author Organization [facility] Healthcare Address [address] [place] [address] Care Team Providers Care Quality Coordinator Name Role Phone Ernesto Summers MD Primary Care Provider [phone] Don Arredondo MD Unavailable Yu Sahni NP Primary Care Provider Ernesto Summers MD Unavailable [phone] Agatha HARTMAN MD, Carlos M. Unavailable Encounter Details Date Type Department Care Team (Late st Contact Info) Description 09/26/2021 [facility] Imaging and Radiology [address] [place] [phone] Maritza Gustafson, DENNIS Social History Tobacco Use Types Packs/Day Years Used Date Smoking Tobacco: Never Smokeless Tobacco: Never Alcohol Use Standard Drinks/Week Comments Not Currently 0 (1 standard drink = 0.6 oz pur e alcohol) Comments Yes Sex and Gender Information Value Date Recorded Sex Assigned at Not on file Legal Sex Female 1:09 PM EMERGENCY WORKER Gender Identity Female 03/22/2022 7:45 AM EMERGENCY WORKER Sexual Orientation Straight 03/22/2022 7: 45 AM EMERGENCY WORKER documented as of this encounter Plan of Treatment Upcoming Encounters Date Type Department Care Team (Late st Contact Info) Description 04/05/2025 12:00 PM EMERGENCY WORKER Hospital Encounter [facility] [address] [place] [address] Claritza Gross MD [address] [place] [address] 04/05/2025 12:00 PM EMERGENCY WORKER - 04/05/2025 12:30 PM EMERGENCY WORKER Surgery [facility] [address] [place] [address] Claritza Gross MD [address] [place] [address] COLONOSCOPY Scheduled Procedures Name Priority Associated Diagnoses Date/Ti mn COLONOSCOPY Ulcerative colitis with complication, unspecified location (HCC) 04/05/2025 12:00 PM EMERGENCY WORKER documented as of this encounter Visit Diagnoses Not on filedocumented in this encounter Additional Health Concerns Infection Onset Date Last Indicated Resolved Time C. difficile suspected 10/05/2024 10/06/202410/06 5:08 AM CDT Salmonella 10/06/2024 10/06/2024 10/20/2024 7:26 PM CDT Salmonella 10/06/2024 10/06/2024 11/14/2024 7:26 PM CDT documented as of this encounter Care Teams Quality Coordinator Relationship Specialty Start Date End Date Ernesto Summers MD [address] [place] [address] PCP - General Obstetrics and Gynecology 01/27/2411/09 Yu Sahni NP [address] [place] [address] PCP - General Family Medicine 12/01/24 Don Arredondo MD [address] [place] [address] Consulting Physician Gastroenterology 10/10/24 Ernesto Summers MD [address] [place] [address] Referring Physician Obstetrics and Gynecology 12/01/24 [place] [address] [address] Consulting Physician Neurology 12/01/24 documented as of this encounter
== END 2025-03-14 11:20 | disposition home or self-care (01) ==
LOC: ANHLAB 11:23
PROVIDERS: Visit Provider Anesthesiology
DX: D64.9 Anemia, unspecified (principal)
CPT/HCPCS: 36415; 85014; 85018

== ENCOUNTER 2025-03-15 00:24 | Day surgery (SDC) | payer MEDICAID, SELFPAY ==
[2025-03-03 08:56] VITALS: BMI 20.4
--- NOTE | 2025-03-03 09:09 | PC.NURSE ---
[facility] has started construction of its new state of the art ER which will open Spring 2026. With this, we anticipate parking may be a challenge for some our surgical patients and families. Parking spaces are limited but are available for all Surgical, obstetrics, and ER patients sharing this lot. If you arrive and find you are having a hard time finding a parking space, please note that we understand the challenges, please drive around the hospital and park near Hospital Entrance 1. When you enter this entrance, you can ask a volunteer to direct or take you back to the surgical waiting area to check in. We appreciate everyone?s understanding of these expected challenges while we build for your future. Report to the Outpatient Waiting Room, entrance under the green pavilion located off [address], at time _0630_ on date ___03/15/25. Planned Procedure Time: _0830_.? Time changes happen often and if your time is changed the preop area will call you the afternoon before. - You and your visitor will be asked to self-screen and do not enter if you have any COVID symptoms. Please call surgeon if you need to reschedule. - A mask is optional within the hospital at this time. Patients may have clear liquids (water, carbonated beverages, clear teas, apple juice) until 3 hours prior to surgery with a maximum of 20 ounces. - No food from midnight until time of surgery and no smoking, or chewing tobacco (or any form of nicotine). No chewing gum, candy or mints. Take only the following medications with a SIP of water on the morning of surgery: MIGRAINE MEDICATION IF NEEDED DO NOT STOP ANY OF YOUR OTHER PRESCRIPTION MEDICATIONS PRIOR TO SURGERY EXCEPT THE FOLLOWING Hold all vitamins and supplements for 3 days per anesthesiologist. Medications to discontinue per physician Date to take last dose Please no make-up, nail serbian, hairspray, perfume, deodorant, or body powder the day of surgery.? No jewelry (including any body piercings) or valuables the day of surgery, leave them at home.? Please take a shower or bath the night before, or the morning of, surgery with an antibacterial soap.? Wear comfortable, loose fitting clothing.? Children are encouraged to wear pajamas. - Jewelry must be removed prior to entering the operating room.? Rings and piercings that are not removed may be cut off. - The hospital will not accept responsibility for valuables.? - Please leave all valuables, including medications, at home the day of surgery. If you are going home after surgery, a licensed tow driver must drive you home.? - NO public transportation without another adult if you receive anesthesia. - We recommend that an adult stay with you for 24 hours following discharge. - We also recommend that you do not drive, make important decision, drink alcoholic beverages, or take any drugs that were not prescribed by your health care provider for at least 24 hours after your discharge time. For Pediatric surgeries, we recommend two adults accompany the child home. Follow any additional instructions given to you from your surgeon. Telephone instructions given to PATIENT_and asked if any additional questions and then verbalized understanding. Patient advised to call surgeon office or pre surgery nurse liaison [phone] if any additional questions.
[2025-03-15] VITALS (11 sets, daily range): BP systolic 103–133; BP diastolic 63–91; PULSE 58–100; RESP 11–20; TEMP 36.3–36.8; O2SAT 100
[2025-03-15] MEDS: ACETAMINOPHEN 500 MG TABLET 1000 MG PO (07:12)
[2025-03-15] MEDS: LACTATED RINGERS 1,000 ML 30 ML IV CONT ×2 (07:12→09:52)
[2025-03-15] MEDS: KETOROLAC 15 MG/ML VIAL (*BKC) IV PUSH (07:12)
[2025-03-15 07:17] LABS: Hematocrit 39.5 % (37.0-47.0); Hemoglobin 13.4 g/dL (12.0-15.0)
--- NOTE | 2025-03-15 07:49 | WPDANESEPPF ---
Anes - Initial Pre Proc Eval Procedure: Operation Date: 03/15/25 08:30 Proposed Procedures p Diagnostic Laparoscopy, Bilateral Salpingectomy - Ernesto Summers MD Date/Time: 03/15/25 07:49 Surgeon: Ernesto Summers MD Pre Op Diagnosis: pevic pain, hydrosalpinx Patient Data Age: 29 Gender: F Height: 1.55 m Weight: 49 kg Allergies Allergy/AdvReac Type Severity Reaction Status Date / Time No Known Allergies Allergy Verified 03/03/25 08:48 Home Medications ?Medication ?Instructions ?Recorded ?Confirmed ?Type ferrous sulfate 325 mg (65 mg 325 mg PO DAILY 30 days #30 tabs 10/29/23 03/03/25 Rx iron) tablet (FeroSul) atomoxetine 60 mg capsule 60 mg PO DAILY 03/03/25 03/03/25 History hydroxyzine pamoate 25 mg capsule 25 mg PO BID 03/03/25 03/03/25 History lurasidone 20 mg tablet 20 mg PO QPM 03/03/25 03/03/25 History medroxyprogesterone 150 mg/mL 150 mg IM [id number] 03/03/25 03/03/25 History intramuscular suspension (Depo-Provera) mesalamine 1,000 mg rectal 1 g RECTAL HS 03/03/25 03/03/25 History suppository mesalamine 500 mg capsule,extended 500 mg PO QID 03/03/25 03/03/25 History release (Pentasa) ondansetron HCl 4 mg tablet 4 mg PO DAILY PRN nausea and 03/03/25 03/03/25 History vomiting rizatriptan 10 mg disintegrating 5 mg PO Q2H PRN migraine headache 03/03/25 03/03/25 History tablet tizanidine 2 mg tablet 4 mg PO HS 03/03/25 03/03/25 History Laboratory Tests 03/15/25 07:11 Hgb 13.4 g/dL (12.0-15.0) Hct 39.5 % (37.0-47.0) Patient hx anesthesia problems: none Family hx anesthesia problems: none Results Review: All pre-operative results and documents have been reviewed as part of the pre-operative evaluation. [facility] Past Medical History Medical History Gestational diabetes and not yet delivered Anemia affecting Anxiety Social History Social History Smoking status: Never smoker Second hand tobacco smoke exposure: Yes Alcohol intake: former Substance use: never Do You Feel Safe in your Home?: Yes Lack of Transportation: No Lack of Food: Never True Current Housing: I Have Housing Concerned About Future Housing: No Difficulty Paying Gas/Electric Bills: YES Difficulty Paying for Meds: No Currently Unemployed: No Education: High School Diploma/GED Difficulty w/ Childcare or Family Care: No Spiritual care concerns: No Anes - Eval Final PreProcedure Day of Procedure 03/15/25 07:49 Patient weight: normal and thin Lungs: normal air movement Airway: Mallampati scale class II Neurological: alert and oriented Last oral intake: >/= 8 hours ASA classification: II Emergent: no Anesthetic plan: proceed Anesthesia type and monitoring: general ETT and standard monitoring Results Review: All pre-operative results and documents have been reviewed as part of the pre-operative evaluation. Migranes, anxiety, UC, pt active, no cp or sob w 1-2 fos. Informed Consent: The patient's anesthetic plan and its attendant risks and benefits were discussed with the patient/family/POA. Questions were solicited and answers provided to the satisfaction of the patient/family/POA.
--- NOTE | 2025-03-15 08:10 | PM.IMHP ---
H&P: HPI History of Present Illness Date/Time: 03/15/25 08:10 Chief Complaint: Unwanted fertility, pelvic pain Narrative: This patient is a 29-year-old female with unwanted fertility and pelvic pain. We agreed to perform laparoscopic bilateral salpingectomy diagnostic laparoscopy. She understands risks, benefits, and alternatives. She has completed the informed consent process and is ready to proceed. The patient understands the details of the procedure. The procedure has been explained in detail. She understands the risks. She understands that injuries may occur that result in hospitalization, more surgery, and severe illness. She understands risk of hemorrhage and infection. She denies any chest pain or shortness of breath. She denies any nausea, vomiting, fever, chills. Review of Systems Review of Systems: All systems reviewed & are unremarkable except as noted in HPI and below Constitutional: Constitutional: Denies chills, Denies fatigue, Denies fever(s) and Denies weakness Eyes: Eyes: Denies blurry vision, Denies change in vision, Denies loss of peripheral vision, Denies loss of vision, Denies other visual disturbances and Denies eye pain ENT: Denies vertigo, Denies dizziness, Denies hearing loss, Denies mouth pain, Denies nasal obstruction, Denies neck mass and Denies neck pain Cardiovascular: Cardiovascular: Denies chest pain, Denies diaphoresis, Denies syncope, Denies leg edema and Denies dyspnea Respiratory: Respiratory: Denies chest congestion, Denies cough, Denies hemoptysis, Denies dyspnea and Denies wheezing Gastrointestinal: Gastrointestinal: Denies abdominal pain, Denies constipation, Denies diarrhea, Denies nausea and Denies vomiting Genitourinary: Genitourinary: Denies hematuria, Denies change in libido, Denies nocturia, Denies genital lesions, Denies flank pain and Denies urinary urgency Musculoskeletal: Musculoskeletal: Denies abnormal gait, Denies back pain, Denies myalgias, Denies arthralgias, Denies joint swelling, Denies muscle weakness and Denies neck pain Integumentary/Breasts: Skin/Breast: Denies swelling, Denies breast pain, Denies breast mass, Denies dry skin, Denies nipple discharge, Denies unusual bruising and Denies jaundice Neurologic: Denies Neuro-related abnormal movements, Denies Abnormal speech present, Denies abnormal gait, Denies behavioral changes, Denies confusion, Denies vertigo, Denies dizziness, Denies syncope, Denies loss of vision, Denies memory loss, Denies convulsions and Denies weakness Psychiatric: Psychiatric: Denies abnormal sleep pattern, Denies behavioral changes, Denies change in libido, Denies confusion, Denies depression, Denies anhedonia and Denies memory loss Endocrine: Endocrine: Reports no additional endocrine complaints, Denies change in libido and Denies fatigue Hematologic/Lymphatic: Hematologic/Lymphatic: Reports no additional hematologic/lymphatic complaints Allergic/Immunologic: Allergic/Immunologic: Reports no additional allergic/immunologic complaints and Denies wheezing PMFSH Past Medical History Medical History Gestational diabetes and not yet delivered Anemia affecting Anxiety Social History Social History Smoking status: Never smoker Second hand tobacco smoke exposure: Yes Alcohol intake: former Substance use: never Do You Feel Safe in your Home?: Yes Lack of Transportation: No Lack of Food: Never True Current Housing: I Have Housing Concerned About Future Housing: No Difficulty Paying Gas/Electric Bills: YES Difficulty Paying for Meds: No Currently Unemployed: No Education: High School Diploma/GED Difficulty w/ Childcare or Family Care: No Spiritual care concerns: No Meds Home Medications and Allergies Home Medications ?Medication ?Instructions ?Recorded ?Confirmed ?Type ferrous sulfate 325 mg (65 mg 325 mg PO DAILY 30 days #30 tabs 10/29/23 03/03/25 Rx iron) tablet (FeroSul) atomoxetine 60 mg capsule 60 mg PO DAILY 03/03/25 03/03/25 History hydroxyzine pamoate 25 mg capsule 25 mg PO BID 03/03/25 03/03/25 History lurasidone 20 mg tablet 20 mg PO QPM 03/03/25 03/03/25 History medroxyprogesterone 150 mg/mL 150 mg IM [id number] 03/03/25 03/03/25 History intramuscular suspension (Depo-Provera) mesalamine 1,000 mg rectal 1 g RECTAL HS 03/03/25 03/03/25 History suppository mesalamine 500 mg capsule,extended 500 mg PO QID 03/03/25 03/03/25 History release (Pentasa) ondansetron HCl 4 mg tablet 4 mg PO DAILY PRN nausea and 03/03/25 03/03/25 History vomiting rizatriptan 10 mg disintegrating 5 mg PO Q2H PRN migraine headache 03/03/25 03/03/25 History tablet tizanidine 2 mg tablet 4 mg PO HS 03/03/25 03/03/25 History Allergies Allergy/AdvReac Type Severity Reaction Status Date / Time No Known Allergies Allergy Verified 03/03/25 08:48 Exam Const: General: cooperative, healthy appearing, comfortable and no acute distress Orientation/consciousness: oriented to person, oriented to place and oriented to time HENMT: Head: normal to inspection Ears: external ears normal Face/Nose/Sinus: Normal external nose present and normal facial exam Face and sinus: normal facial exam Eyes: General: appearance normal, both eyes and all related structures Neck: Neck: normal visual inspection, trachea midline and supple Resp: Auscultation: clear to auscultation bilaterally, no crackles, no rales, no rhonchi and no wheezes Cardio: Rate: regular rate Rhythm: regular rhythm Heart sounds: no click, no murmurs and no rubs GI: GI Palp: No abdominal tenderness, No Soft to palpation, No Tenderness to palpation present (GI) and No Palpable mass present Auscultation: normal bowel sounds Skin: General skin exam: normal color and no rashes or lesions noted Neuro: General: oriented to person, oriented to place and oriented to time Extrem: General: normal to inspection, no joint enlargement, no clubbing, cyanosis or edema, no pedal edema and no calf tenderness Psych: Appearance: grossly normal Mental Status: mental status grossly normal Speech and movement: Normal speech and movement present H&P: Results Labs Labs: Short CBC 03/15/25 Range/Units 07:11 Hgb 13.4 (12.0-15.0) g/dL Hct 39.5 (37.0-47.0) % Assessment and Plan Assessment and plan (1) Unwanted fertility: Code(s): Z30.09 - Encounter for other general counseling and advice on contraception Status: Acute (2) Pelvic pain: Code(s): R10.20 - Pelvic and perineal pain unspecified side Status: Acute Plan This patient is a 29-year-old female with unwanted fertility and pelvic pain. We agreed to perform laparoscopic bilateral salpingectomy diagnostic laparoscopy. She understands risks, benefits, and alternatives. She has completed the informed consent process and is ready to proceed.
--- NOTE | 2025-03-15 08:14 | WPDHPUPDATE1 ---
History and Physical Update Update Date/Time: 03/15/25 08:14 History and Physical has been reviewed, including an updated exam of the patient. There are NO changes in the patient's condition. Risks, benefits, and alternatives have been discussed and questions answered. Patient agrees to proceed with procedure.
--- NOTE | 2025-03-15 09:17 | S_PTH ---
PATIENT: Radha Mckeon LOC: [facility] U#:[id number] AGE/SX: 29/F ROOM: RE03/15/[address]: Ernesto Summers MD : [id number] BED: DIS: 03/15/2025 SPEC #: [id number] RECD: 03/15/25 11:29 STATUS: AMIRA REJob #: [id number] TRACEE: 03/15/25 09:[address]: Ernesto Summers DEPT: [facility] RECD BY: Cony Woo Tissues: A - Fallopian Tube Bilateral Procedures: Gross and Microscopic Level 2 Hematoxylin and Eosin Stain
--- NOTE | 2025-03-15 09:55 | W.PM.PROC2 ---
Procedure Note - Detailed Date of Procedure 03/15/25 Pre-op Diagnosis pevic pain, hydrosalpinx Post-op Diagnosis Same Procedure Performed Diagnostic laparoscopy, adhesiolysis-45 minutes, bilateral salpingectomy Surgeon Ernesto Summers MD Anesthesia General Indications Pelvic pain Findings Densely adherent uterus to the anterior pelvis. Torturous fallopian tubes bilaterally. Normal-appearing ovaries. Description of Procedure The patient was taken to the operating room. She was prepped and draped in the dorsal lithotomy position after induction general anesthesia. A 5 mm incision was made with a scalpel on the abdominal skin in the left upper quadrant of the abdomen. A 5 mm trocar was inserted into the intra-abdominal cavity under direct visualization the scope. In the same fashion a 5 mm left lower quadrant trocar was inserted and a 5 mm infraumbilical trocar was inserted. The bilateral fallopian tubes were removed. This was done by using a LigaSure cautery. The mesosalpinx adjacent to the tube was cauterized transected with LigaSure. This was initiated in the area the ovary and in a stepwise fashion moved medially to the area of the cornu of the uterus. Once there the fallopian tube was cauterized and transected. This was done in identical fashion on each side. The fallopian tubes were taken out through the left lower quadrant trocar site. Adhesiolysis was performed. The adhesions between the uterus to the anterior pelvic wall were taken down with blunt sharp dissection. This required 45 minutes. The pelvis was irrigated. The pneumoperitoneum was reduced. The trocars were removed. Skin was closed with subcuticular 4 micro. The patient's incisions were covered with Dermabond. She was taken recovery room in stable condition. Sponge lap and needle counts were correct x2. Complications No immediate complications Condition Stable Disposition Same day
[2025-03-15] MEDS: fentaNYL CITRATE INJ (*CRX) 100 MCG/2 ML VIAL 25 MCG IV PUSH ×4 (10:07→10:29)
[2025-03-15] MEDS: ONDANSETRON INJ 4 MG/2 ML VIAL IV PUSH (10:33)
[2025-03-15] MEDS: SCOPOLAMINE 1 MG PATCH 1 PATCH TRANSDERM (11:45)
[2025-03-15] MEDS: oxyCODONE HCL (*CRX) 5 MG TAB IR PO (12:24)
== END 2025-03-15 13:16 | disposition home or self-care (01) ==
PROVIDERS: Anesthesiology; Visit Provider Obstetrics & Gynecology
PROC: (CPT 49320; principal; 2025-03-15 08:30)
DX: N70.11 Chronic salpingitis (principal); R10.20 Pelvic and perineal pain unspecified side; N73.6 Female pelvic peritoneal adhesions (postinfective)
CPT/HCPCS: 58661; 36415; 85014; 85018; 88302; A9270; J1100; J1200; J1885; J2003; J2250; J2405; J2704; J3010; J7030; J7120; Q9968